=== PATIENT | female | born 1995 ===

== ENCOUNTER 2023-11-14 21:35 | Emergency (ER) | payer SELFPAY ==
--- NOTE | ~2023-11-14 | XR_ITS ---
EXAMINATION: XR CHEST CLINICAL INFORMATION: Cough COMPARISON: None available. TECHNIQUE: 2 views of the chest were obtained. FINDINGS: No significant abnormality is noted involving the heart, lungs, mediastinum, bony thorax or soft tissues. XR/XR chest 2V IMPRESSION: Unremarkable examination.
[2023-11-14 21:37] VITALS: BP 124/80; PULSE 82; RESP 18; TEMP 36.9; O2SAT 100; BMI 22.3
[2023-11-14 21:58] LABS: IDNOW Serial# 08D9AD1C; Strep A Nucleic Acid Negative (Negative)
[2023-11-14 22:27] LABS: Influenza A PCR POSITIVE (Negative); Influenza B PCR NEGATIVE (Negative); Resp Syncy Virus RNA Qual PCR NEGATIVE (Negative); SARS COV2 PCR INHOUSE NEGATIVE (Negative)
--- NOTE | 2023-11-14 23:17 | ED_ITS ---
HPI - General Adult General Chief complaint: Upper Respiratory Symptoms Stated complaint: migraine,vomiting,fever Time Seen by Provider: 11/14/23 23:03 Source: patient Mode of arrival: ambulatory Limitations: no limitations History of Present Illness HPI narrative: 28-year-old female otherwise healthy came in for evaluation of generalized body ache, headache, coughing, sore throat, feeling nauseous, and vomited x1 today, no sick contact, no recent travel. Related Data Allergies Allergy/AdvReac Type Severity Reaction Status Date / Time minocycline [MINOCYCLINE] Allergy Unknown RASH Verified 11/14/23 21:52 Review of Systems Review of Systems: All other systems are reviewed and are negative Constitutional: Reports as per HPI and Reports no additional constitutional complaints Eyes: Reports as per HPI and Reports no additional eye complaints Reports system reviewed and no additional complaints, except as documented Cardiovascular: Reports as per HPI and Reports no additional cardiovascular complaints Respiratory: Reports as per HPI and Reports no additional respiratory complaints Gastrointestinal: Reports as per HPI and Reports no additional gastrointestinal complaints Genitourinary: Reports no additional female genitourinary complaints Musculoskeletal: Reports no additional musculoskeletal complaints Skin/Breast: Reports system reviewed and no additional complaints, except as docu Psychiatric: Reports no additional psychiatric complaints Endocrine: Reports no additional endocrine complaints Hematologic/Lymphatic: Reports no additional hematologic/lymphatic complaints Allergic/Immunologic: Reports no additional allergic/immunologic complaints Reports system reviewed and no additional complaints, except as documented and Reports Abnormal speech present [facility] Social History Social History Advance Directives: No Advance Directives Information Provided: No Physical Exam ED Vital Signs: Vital Signs - 24 hr 11/14/23 21:37 Temperature 98.4 F Pulse Rate 82 Respiratory Rate 18 Blood Pressure 124/80 Pulse Oximetry 100 Oxygen Delivery Method Room Air BMI result Body Mass Index 22.3 Vital signs have been reviewed and appear to be correct. Blood pressure elevated. Heart rate normal. Respiratory rate normal. Temperature normal. Oxygen saturation normal. Appearance: Alert. Oriented X3. No acute distress. Head: Normal external exam. Normocephalic. Atraumatic. No [place] signs noted. No raccoon eyes noted Eyes: PERRLA. EOMI. Conjunctiva and sclera normal. Eyelids normal. ENT: TM's Normal. Pharynx normal. Uvula midline. Moist mucous membranes. No trismus noted. No drooling noted. No muffled voice noted. Neck: Normal inspection. Neck supple. FROM. No adenopathy. Thyroid Normal. No meningeal signs. No neck mass noted. CVS: Normal heart rate and rhythm. Heart sound normal. No murmurs noted. Pulses normal throughout. Respiratory: No respiratory distress. Painless inspiration. Breath sounds normal. No wheezes/rales/rhonchi noted. Chest nontender. No accessory muscle usage noted or decreased air movement noted. Abdomen: Soft and nontender. Bowel sounds normal in all 4 quadrants. No distention noted. No organomegaly noted. No visible injury noted. Back: No CVA tenderness. Full range of motion noted. Skin: Skin warm and dry. Normal skin color. Normal skin turgor. No rashes/lesions/lacerations noted. Extremities: No lower extremity edema. Extremities exhibit normal range of motion. Extremities nontender. Neuro: Oriented X 3. Cranial nerve exam: II-XII are grossly intact No motor deficit. No sensory deficit. Reflexes normal. Course Reevaluation(s) Reevaluation #1: Symptoms related to influenza a infection, was instructed to drink plenty of fluids, stay home, keep social distancing, face mask, frequent and wash. And use Tylenol/ibuprofen if needed for fever. Time: 23:19 Medical Decision Making Differential Diagnosis Differential Diagnoses: The differential diagnosis associated with the presentation includes (Influenza a, COVID-19 infection, RSV, strep pharyngitis.) Admission/Observation Consideration of admission/observation: Escalation of care including admission/observation considered Lab Data MDM Lab Attestation statement: I reviewed the patient's lab results. Labs: Lab Results 11/14/23 Range/Units 21:45 Influenza Type A (PCR) POSITIVE A (Negative) Influenza Type B (PCR) NEGATIVE (Negative) RSV RNA Qual (PCR) NEGATIVE (Negative) SARS-CoV-2 RNA (RT-PCR) NEGATIVE (Negative) S. pyogenes GrpA MAYURI Negative (Negative) Discharge Plan Discharge Clinical Impression: Influenza Patient Disposition: Home, Self-Care Instructions: Influenza (ED) Additional Instructions: Drink plenty of fluids, frequent handwashing, use face mask, keep social distance, home quarantine for 1 week.
[2023-11-14 23:46] VITALS: BP 129/76; PULSE 80; RESP 18; TEMP 37.5; O2SAT 100
--- NOTE | 2023-11-14 23:47 | PC.NURSE ---
pt calm and cooperative. pt ambulatory at discharge. pt provided with discharge packet. pt verbalized understanding of discharge plan.
== END 2023-11-14 23:49 | disposition home or self-care (01) ==
PROVIDERS: Emergency Provider Emergency Medicine
DX: J11.1 Influenza due to unidentified influenza virus with other respiratory manifestations (principal); Z20.822 Contact with and (suspected) exposure to COVID-19; Z20.828 Contact with and (suspected) exposure to other viral communicable diseases
CPT/HCPCS: 0241U; 71046; 87651; 99283; 99284

== ENCOUNTER 2023-12-06 08:40 | Emergency (ER) | payer MEDICAID, SELFPAY ==
--- NOTE | ~2023-12-06 | US_ITS ---
EXAMINATION: US OBSTETRICAL ULTRASOUND CLINICAL INFORMATION: , bleeding, abdominal pain COMPARISON: None available. LMP: 01/01/2023. Gestational age by maternal dates is 5 weeks 1 day. Estimated date of delivery by maternal dates is 08/06/2024. TECHNIQUE: Transabdominal and transvaginal imaging was performed. FINDINGS: There is a single intrauterine gestational sac with visible yolk sac, embryo/fetus, and cardiac activity. There is no significant subchorionic hemorrhage or hematoma. HR: 106 beats per minute. CRL (crown rump length): 0.24 cm (5 weeks 6 days +/- 4 days). DAVID (estimated date of delivery): 08/01/2024 +/- 4 days. MATERNAL ADNEXA: The right maternal ovary measures 3.6 x 3.1 x 2.5 cm. 2.1 x 1.9 x 2.1 cm corpus luteum is seen in the right ovary. The left maternal ovary measures 2.1 x 0.9 x 1.6 cm. The left ovary is normal in appearance. There is no significant maternal adnexal mass. No maternal pelvic ascites. US/US OB <= 14 weeks fetus IMPRESSION: 1. Single intrauterine gestation with ultrasound gestational age of 5 weeks 6 days +/- 4 days. 2. Estimated date of delivery is 08/01/2024 +/- 4 days. 3. The heart rate is slightly slow. Follow-up ultrasound in 7-10 days could be performed.
[2023-12-06 08:51] VITALS: BP 147/90; PULSE 120; RESP 20; TEMP 36.7; O2SAT 100; BMI 19.8
[2023-12-06 09:32] LABS: Appearance Urine Cloudy; Color Urine Dark Yellow; Glucose Urine UA Negative (Negative); Leukocyte Esterase Urine Trace (Negative); Nitrite Urine Negative (Negative); Specific Gravity - Urine >= 1.030 (1.005-1.025); UMIC TRIGGER UACC YES; UPreg QC Valid YES; Urine Blood Trace (Negative); Urine Ketones 40 mg/dL (Negative); Urine Pregnancy POSITIVE (NEGATIVE); Urine Protein Trace mg/dL (Neg-Trace)
[2023-12-06 09:38] LABS: Bacteria Urine 4+ (None Seen); Hyaline Casts Urine 0-2 /LPF (0-2); Squamous Epithelial Cell Urine >20 /HPF (0-2); WBC Urine 0-5 /HPF (0-5)
[2023-12-06 10:07] LABS: MANUAL DIFF FLAG NO
[2023-12-06 10:08] LABS: Basophils Percent Auto 0.4 % (0-2); Eosinophils Percent Auto 0.3 % (0-4); Hematocrit 36.1 % (37.0-47.0); Hemoglobin 12.2 g/dl (12.0-16.0); Imm Gran Abs Auto 0.03 X10*3/uL (0.00-0.03); Imm Gran Pct Auto 0.4 % (0.0-0.4); Lymphocytes Absolute Auto 1.4 X10*3/uL (1.2-4.9); Lymphocytes Percent Auto 18.1 % (20-40); Mean Corpuscular HGB Conc 33.8 g/dl (31.0-35.0); Mean Corpuscular Hemoglobin 30.7 pg (27.0-33.0); Mean Corpuscular Volume 90.9 fL (80.0-98.0); Mean Platelet Volume 11.3 fL (9.4-12.3); Monocytes Absolute Auto 0.5 X10*3/uL (0.1-1.2); Monocytes Percent Auto 6.4 % (2-11); Neutrophils Absolute Auto 5.8 x10*3/uL (2.0-8.3); Neutrophils Percent Auto 74.4 % (45-73); Platelet Count 216 X10*3/uL (160-400); Red Blood Count 3.97 X10*6/uL (4.20-5.50); Red Cell Distribution Width 11.7 % (11.0-16.0); White Blood Count 7.8 X10*3/uL (4.8-10.8)
--- NOTE | 2023-12-06 10:14 | ED.GENADULT ---
HPI - General Adult General Chief complaint: General Medical Stated complaint: abd pain Time Seen by Provider: 12/06/23 10:14 Source: patient and academic records specialist Mode of arrival: ambulatory Limitations: language barrier History of Present Illness HPI narrative: Patient is a 28 year old assigned female at with no reported medical history presenting to the emergency department today with lower abdominal pain, scant vaginal bleeding, and concern for . Patient states that her last period was in October of 2023 and she is late for her current period. Patient states that she had one episode of lower abdominal pain and some scant vaginal bleeding. Patient denies ever being . Patient denies any dizziness, lightheadedness, nausea, vomiting, fever, chills, blurry vision, double vision, loss of vision, chest pain, difficulty breathing, shortness of breath, back pain, night sweats, pain with urination, increased urinary frequency, increased urinary urgency, blood in her stool, syncope or a near syncopal episode, recent trauma or falls, bowel incontinence, bladder incontinence, bowel retention, bladder retention, or any other complaints at this time. Onset (ago): day(s) Severity: mild Relieving factors: none Exacerbating factors: none Associated symptoms: denies other symptoms Treatments prior to arrival: none Related Data Previous Rx's Medication Instructions Recorded cefuroxime axetil 250 mg tablet 250 mg PO BID 7 days #14 tabs 12/06/23 Allergies Allergy/AdvReac Type Severity Reaction Status Date / Time minocycline [MINOCYCLINE] Allergy Unknown RASH Verified 12/06/23 08:59 Review of Systems Constitutional: Constitutional: Reports no additional constitutional complaints, Denies chills, Denies fever(s) and Denies night sweats Eyes: Eyes: Reports no additional eye complaints, Denies blurry vision, Denies change in vision, Denies diplopia, Denies eye discharge, Denies loss of vision and Denies eye pain ENT: Denies dizziness Cardiovascular: Cardiovascular: Reports no additional cardiovascular complaints, Denies chest pain, Denies lightheadedness, Denies Loss of Consciousness and Denies dyspnea Respiratory: Respiratory: Reports no additional respiratory complaints and Denies dyspnea Gastrointestinal: Gastrointestinal: Reports no additional gastrointestinal complaints, Reports abdominal pain, Denies melena, Denies hematochezia, Denies change in bowel habits and Denies change in stool character Genitourinary: Genitourinary: Denies hematuria, Denies urinary frequency, Denies dysuria, Denies urinary incontinence, Denies urinary hesitancy and Denies urinary urgency Comments: vaginal bleeding Musculoskeletal: Musculoskeletal: Reports no additional musculoskeletal complaints, Denies numbness and Denies tingling Neurologic: Denies dizziness, Denies loss of vision, Denies numbness and Denies tingling Psychiatric: Psychiatric: Reports no additional psychiatric complaints Endocrine: Endocrine: Reports no additional endocrine complaints Hematologic/Lymphatic: Hematologic/Lymphatic: Reports no additional hematologic/lymphatic complaints Allergic/Immunologic: Allergic/Immunologic: Reports no additional allergic/immunologic complaints [facility] Past Medical History Attestation statement: The following information was validated with the patient. Source: old records reviewed and nursing notes reviewed Onset Date is defined in the Problem List Problems that require an onset date and time if occurred within 24 hrs of arrival to the ED Aortic Dissection and Rupture; Neurologic impairment; Cardiopulmonary Arrest; Endotracheal Intubation; Insertion or Replacement of Mechanical Circulatory Assist Device Social History Social History Advance Directives: No Advance Directives Information Provided: No Physical Exam ED Vital Signs: Vital Signs - 24 hr 12/06/23 08:51 Temperature 98.1 F Pulse Rate 120 H Respiratory Rate 20 Blood Pressure 147/90 H Pulse Oximetry 100 Oxygen Delivery Method Room Air BMI result Body Mass Index 19.8 Const General: cooperative, no acute distress, alert and awake Nutritional Appearance: well nourished Orientation/consciousness: patient oriented x3 Limitations: no limitations HENMT Head: Yes normal to inspection and Yes atraumatic Ears: hearing grossly normal bilaterally and external ears normal General nose exam: Normal external nose present, no nasal discharge noted and no epistaxis Face and sinus: Yes normal facial exam, No abrasion and No laceration Mouth: Normal oral and palatal mucosa present, no drooling and no muffled voice Eyes General: appearance normal, both eyes and all related structures Periorbital: periorbital findings normal Eyelids: Yes eyelids normal Conjunctivae: conjunctivae normal Pupils: Equal, round and reactive pupils present EOM: EOMs intact bilaterally Neck Neck: Yes normal visual inspection, Yes full ROM and Yes no lymphadenopathy Chest Chest palpation & inspection: normal inspection of the chest Resp Effort & Inspection: normal respiratory effort and able to speak in complete sentences GI Inspection: Yes normal to inspection Palpation (GI): Soft to palpation, not firm, nontender, no guarding and not rigid Neuro General: patient oriented x3 and moves all extremities Cranial nerves: Yes Equal, round and reactive pupils present Cognition (Neuro): normal cognition Motor exam (neuro): 5/5 motor strength present throughout Sensory Exam: Normal double simultaneous stimulation for sensation Coordination: [id number] test normal Extrem General: Yes normal to inspection, Yes full ROM and Yes capillary refill normal Psych Appearance: grossly normal Mental Status: mental status grossly normal Affect: normal affect Attitude: cooperative Thought process: Normal thought process present Thought content: Normal thought content present Insight: Good insight present (Psych) Medical Decision Making Medical Decision Making MDM Narrative: Patient is a 28 year old assigned female at with no reported medical history presenting to the emergency department today with concern of , resolved abdominal pain, and scant vaginal bleeding. Patient's physical exam was unremarkable. [place] [address]. Patient's urine showed a possible urinary tract infection, given the patient's status, will treat. Patient's US showed an intrauterine with a slightly slow heart rate . I explained my physical exam findings as well as all test results to the patient. I answered all questions asked by the patient. I stressed the importance of the patient taking her medication as prescribed. I stressed the importance of the patient following up with her primary care provider and an OBGYN. I stressed the importance of the patient returning to the emergency department immediately if her symptoms were to worsen or if she were to develop any dizziness, shortness of breath, difficulty breathing, chest pain, blurry vision, loss of vision, nausea, vomiting, abdominal pain, fever, chills, back pain, or any other complaints. Patient verbalized agreement and understanding with this treatment plan and discharge. Differential Diagnosis Differential Diagnoses: The differential diagnosis associated with the presentation includes UTI Admission/Observation Consideration of admission/observation: Escalation of care including admission/observation considered Patient would have been admitted to the hospital had her work up had any findings where hospital admission was appropriate and her clinical presentation warranted hospital admission. Lab Data [facility] Lab Attestation statement: I reviewed the patient's lab results. My interpretation of these results are in the [facility] Rationale portion of this note. 12/06/23 10:00 12/06/23 10:00 Labs: Lab Results 01/12/06/23 12/06/23 Range/Units 09:04 10:00 11:18 WBC 7.8 (4.8-10.8) X10*3/uL RBC 3.97 L (4.20-5.50) X10*6/uL Hgb 12.2 (12.0-16.0) g/dl Hct 36.1 L (37.0-47.0) % MCV 90.9 (80.0-98.0) fL MCH 30.7 (27.0-33.0) pg MCHC 33.8 (31.0-35.0) g/dl RDW 11.7 (11.0-16.0) % Plt Count 216 (160-400) X10*3/uL MPV 11.3 (9.4-12.3) fL Immature Gran % (Auto) 0.4 (0.0-0.4) % Neut % (Auto) 74.4 H (45-73) % Lymph % (Auto) 18.1 L (20-40) % Starke % (Auto) 6.4 (2-11) % Eos % (Auto) 0.3 (0-4) % Baso % (Auto) 0.4 (0-2) % Lymph # (Auto) 1.4 (1.2-4.9) X10*3/uL Starke # (Auto) 0.5 (0.1-1.2) X10*3/uL Eos # (Auto) 0.0 (0.0-0.4) X10*3/uL Baso # (Auto) 0.0 (0.0-0.2) X10*3/uL Abs Immat Gran (auto) 0.03 (0.00-0.03) X10*3/uL Absolute Neuts (auto) 5.8 (2.0-8.3) x10*3/uL Absolute Nucleated RBC 0.000 (0.0-0.012) X10*3/uL Nucleated RBC % (auto) 0.0 (0.0-0.2) /100WBC Sodium 137 (135-145) mmol/L Potassium 4.2 (3.3-5.1) mmol/L Chloride 106 (96-108) mmol/L Carbon Dioxide 23 (22-29) mmol/L Anion Gap 12 (12-20) BUN 8 L (9-16) mg/dL Creatinine 0.64 (0.5-1.4) mg/dL Estim Creat Clear Calc 123.9 Estimated GFR > 60 Random Glucose 86 (60-115) mg/dL Calcium 9.4 (8.4-10.2) mg/dL Magnesium 1.8 (1.6-2.6) mg/dL Total Bilirubin 1.0 (0.0-1.0) mg/dL AST 22 (5-31) U/L ALT 34 H (0-31) U/L Alkaline Phosphatase 79 (39-117) U/L Total Protein 7.4 (6.5-8.0) g/dL Albumin 4.3 (3.5-5.0) g/dL Beta HCG, Quant 95618 mIU/mL Urine Color Dark Yellow Urine Appearance Cloudy Urine pH 7.0 (5.0-9.0) Ur Specific [place] >= 1.030 H (1.005-1.025) Urine Protein Trace (Neg-Trace) mg/dL Urine Glucose (UA) Negative (Negative) mg/dL Urine Ketones 40 (Negative) mg/dL Urine Blood Trace H (Negative) Urine Nitrite Negative (Negative) Ur Leukocyte Esterase Trace H (Negative) Urine RBC 11-20 H (0-2) /HPF Urine WBC 0-5 (0-5) /HPF Ur Squamous Epith Cells >20 (0-2) /HPF Urine Bacteria 4+ (None Seen) Hyaline Casts 0-2 (0-2) /LPF Urine Test POSITIVE H (NEGATIVE) Blood Type A Positive Antibody Screen NEGATIVE Independent Interpretation I performed an independent interpretation of an: Ultrasound Interpretation: My interpretation is in agreement with the radiologist's impression of this imaging study. EXAMINATION: US OBSTETRICAL ULTRASOUND CLINICAL INFORMATION: , bleeding, abdominal pain COMPARISON: None available. LMP: 01/01/2023. Gestational age by maternal dates is 5 weeks 1 day. Estimated date of delivery by maternal dates is 08/06/2024. TECHNIQUE: Transabdominal and transvaginal imaging was performed. FINDINGS: There is a single intrauterine gestational sac with visible yolk sac, embryo/fetus, and cardiac activity. There is no significant subchorionic hemorrhage or hematoma. HR: 106 beats per minute. CRL (crown rump length): 0.24 cm (5 weeks 6 days +/- 4 days). DAVID (estimated date of delivery): 08/01/2024 +/- 4 days. MATERNAL ADNEXA: The right maternal ovary measures 3.6 x 3.1 x 2.5 cm. 2.1 x 1.9 x 2.1 cm corpus luteum is seen in the right ovary. The left maternal ovary measures 2.1 x 0.9 x 1.6 cm. The left ovary is normal in appearance. There is no significant maternal adnexal mass. No maternal pelvic ascites. US/US OB <= 14 weeks fetus IMPRESSION: 1. Single intrauterine gestation with ultrasound gestational age of 5 weeks 6 days +/- 4 days. 2. Estimated date of delivery is 08/01/2024 +/- 4 days. 3. The heart rate is slightly slow. Follow-up ultrasound in 7-10 days could be performed. Dictated By: Yarelis Borden MD Signed By: Electronically signed by Yarelis Borden MD 12/06/23 4950 Radiology Impression Discussion of test interpretation with radiology: I have reviewed the radiologist's reading. Prescription Management I considered prescription management with: Antibiotic (patient prescribed an antibiotic for UTI) Discharge Plan Discharge Clinical Impression: , Urinary tract infection Patient Disposition: Home, Self-Care Instructions: (ED), Urinary Tract Infection in (ED) Additional Instructions: Follow up with your primary care provider and an OBGYN. The fetus' heart beat was considered slow - this means you need it rechecked soon. Return to the emergency department immediately if your symptoms worsen or if you develop any dizziness, shortness of breath, difficulty breathing, chest pain, blurry vision, loss of vision, nausea, vomiting, abdominal pain, fever, chills, back pain, or any other complaints. Amanda un seguimiento con lao proveedor de atenci?n primaria y un obstetra. El latido del coraz?n del feto se consider? lento , lo que significa que es necesario volver a comprobarlo pronto. Regrese al departamento de emergencias inmediatamente si viral s?ntomas empeoran o si presenta mareos, dificultad para respirar, dificultad para respirar, dolor en el pecho, visi?n borrosa, p?rdida de la visi?n, n?useas, v?mitos, dolor abdominal, fiebre, escalofr?os, dolor de espalda o cualquier otras quejas. Prescriptions: New cefuroxime axetil 250 mg tablet 250 mg PO BID 7 Days Qty: 14 0RF Referrals: [facility] [place]] (Call to establish and follow up with a primary care provider. If you already have a primary care provider, please follow up with them. Llame para establecer y realizar un seguimiento con un proveedor de atenci?n primaria. Si ya tiene un proveedor de atenci?n primaria, amanda un seguimiento con ?l.) [facility] [[place] Group] (Call to establish and follow up with a primary care provider. If you already have a primary care provider, please follow up with them. Llame para establecer y realizar un seguimiento con un proveedor de atenci?n primaria. Si ya tiene un proveedor de atenci?n primaria, amanda un seguimiento con ?l.) [facility] [Provider Group] (Call to establish and follow up with a primary care provider. If you already have a primary care provider, please follow up with them. Llame para establecer y realizar un seguimiento con un proveedor de atenci?n primaria. Si ya tiene un proveedor de atenci?n primaria, amanda un seguimiento con ?l.) Abad Sanchez MD [Physician] - (Call to establish and follow up with an OBGYN. Llame para establecer y realizar un seguimiento con un obstetra y ginec?logo.) Interventions: ED Discharge Assessment Last Done: 12/06/23 12:41 Discharge Date/Time: 12/06/23 12:41 Print Language: Nigerian
[2023-12-06 10:29] LABS: Alanine Aminotransferase 34 U/L (0-31); Albumin Level 4.3 g/dL (3.5-5.0); Alkaline Phosphatase 79 U/L (39-117); Anion Gap 12 (12-20); Aspartate Amino Transferase 22 U/L (5-31); Blood Urea Nitrogen 8 mg/dL (9-16); Calcium 9.4 mg/dL (8.4-10.2); Carbon Dioxide 23 mmol/L (22-29); Chloride 106 mmol/L (96-108); Creatinine Clr Calc Pharmacy 123.9; Estimated Glomerular Filt Rate > 60; Glucose Random 86 mg/dL (60-115); Magnesium 1.8 mg/dL (1.6-2.6); Potassium 4.2 mmol/L (3.3-5.1); Sodium 137 mmol/L (135-145); Total Protein 7.4 g/dL (6.5-8.0)
== END 2023-12-06 12:41 | disposition home or self-care (01) ==
PROVIDERS: Physician Assistant Medical; Emergency Provider Emergency Medicine
DX: O23.41 Unspecified infection of urinary tract in pregnancy, first trimester (principal); R10.30 Lower abdominal pain, unspecified; N39.0 Urinary tract infection, site not specified; Z3A.01 Less than 8 weeks gestation of pregnancy
CPT/HCPCS: 36415; 76801; 80053; 81001; 81025; 83735; 84702; 85025; 86850; 86900; 86901; 99282; 99284

== ENCOUNTER 2023-12-14 13:25 | Outpatient (REF) | payer OTHER, SELFPAY ==
--- NOTE | ~2023-12-14 | US_ITS ---
EXAMINATION: US OBSTETRICAL ULTRASOUND CLINICAL INFORMATION: Follow-up . COMPARISON: Obstetrical ultrasound dated 12/06/2023. LMP: 10/31/2023. Gestational age by maternal dates is 6 weeks and 2 days. Estimated date of delivery by maternal dates is 08/06/2024. TECHNIQUE: Ultrasound of the maternal pelvis is performed using transabdominal transducer. M-mode Doppler is also performed. FINDINGS: There is a single intrauterine gestational sac with visible yolk sac, embryo/fetus, and cardiac activity. There is no significant subchorionic hemorrhage or hematoma. HR: 144 beats per minute. CRL (crown rump length): 0.91 cm (7 weeks and 0 days +/- 4 days). DAVID (estimated date of delivery): 08/01/2024 +/- 4 days. MATERNAL ADNEXA: The right maternal ovary measures 3.3 x 2.5 x 2.0 cm. The right ovary contains a 1.7 cm benign, simple physiologic follicle. The left maternal ovary measures 2.0 x 1.3 x 2.2 cm. There is no significant maternal adnexal mass. No maternal pelvic ascites. US/US OB <= 14 weeks fetus IMPRESSION: 1. Single intrauterine gestation with ultrasound gestational age of 7 weeks and 0 days +/- 4 days. 2. Estimated date of delivery is 08/01/2024 +/- 4 days. This is the same estimated date of delivery as was obtained from obstetrical ultrasound measurements of 12/06/2023. 3. The heart rate is normal. 4. No maternal adnexal mass or pelvic ascites.
== END 2023-12-14 13:26 | disposition home or self-care (01) ==
LOC: HO.US 13:25
PROVIDERS: Visit Provider Advanced Practice Midwife
DX: O36.8310 Maternal care for abnormalities of the fetal heart rate or rhythm, first trimester, not applicable or unspecified (principal); Z3A.01 Less than 8 weeks gestation of pregnancy
CPT/HCPCS: 76801

== ENCOUNTER 2023-12-22 10:09 | Outpatient (AMB) | payer OTHER, SELFPAY ==
--- NOTE | 2023-12-22 10:09 | A.OFFVIS_ITS ---
Intake Vital Signs 12/22/23 10:11 Height 5 ft 4 in Weight 142 lb BMI 24.4 BP 110/72 Intake Visit Reasons: US follow up per Francisco J Chemist Inorganic Required: Yes Chemist Inorganic Language: Corporate Bond Trader Name: Vannessa Information Interpreted: non-clinical & clinical Destination Sign Repairer: Destination Sign Repairer Present Accompanied by: Mother Allergies minocycline [MINOCYCLINE] Allergy (Unknown, Verified 12/22/23 10:10) RASH Is last menstrual period known: Yes HPI HPI Comments History of Present Illness Details Patient is here today with her mother for a follow-up ultrasound after being seen in the ED. she is a EDC 08/01 24 based on ultrasound at 7 weeks. Currently now 8.3 weeks' gestation. She reports taking the vitamins. Has a good appetite and is hydrating well. She reports a bitter taste but no nausea or vomiting. She denies any vaginal bleeding pelvic pain or urinary symptoms. She denies any past medical history. Past surgical history is adenoidectomy and ear tubes. Allergy to minocycline rash, possible hives. [facility] Social History Alcohol intake: never Patient Tobacco Use Status: Never used Tobacco Sexual orientation: Straight/Heterosexual Gender identity: Female Female Reproductive History Menstrual Total pregnancies: 1 Review of Systems Const All systems reviewed & are unremarkable except as noted in HPI and below Endo Reports no additional complaints Physical Exam Vital Signs: Last Vital Signs BP 110/72 12/22/23 10:11 BMI result Body Mass Index 24.4 Const General: cooperative, healthy appearing and no acute distress Psych Appearance: well kempt Attitude: cooperative Thought process: Normal thought process present Assessment & Plan Assessment & Plan (1) Early stage of : Code(s): Z34.90 - Encounter for supervision of normal , unspecified, unspecified trimester (2) Encounter to discuss test results: Code(s): Z71.2 - Person consulting for explanation of examination or test findings Plan Discussed: Ultrasound early with + heart rate. care options including [facility], Laurita Kan, Laura, [address] [place] [address]. Anticipatory guidance for care: discussed diet. Continue with vitamins. Patient prefers to stay here for care at this time is aware if her becomes high risk she would be transferred, and can consider transfer to meet the providers at [facility] any time she would like, preferably sooner to meet the clinicians. All of her questions and concerns were addressed to the best of my ability and shared decision making. She is agreeable to the plan of care. Reviewed the warnings in early of when to call for any concerns. Coding Level of Care Code New Pt Level 3 (90700) Diagnoses Early stage of Z34.90 Encounter to discuss test results Z71.2
[2023-12-22 10:11] VITALS: BP 110/72; BMI 24.4
== END 2023-12-22 11:20 | disposition home or self-care (01) ==
LOC: HO.HWS 10:09
PROVIDERS: Visit Provider Advanced Practice Midwife
DX: Z34.90 Encounter for supervision of normal pregnancy, unspecified, unspecified trimester (principal); Z71.2 Person consulting for explanation of examination or test findings
CPT/HCPCS: 99203

== ENCOUNTER → 2023-12-22 10:09 | Outpatient (BNVA) | payer OTHER, SELFPAY | PROVIDERS: Visit Provider Advanced Practice Midwife | DX: Z34.91 Encounter for supervision of normal pregnancy, unspecified, first trimester (principal) | CPT/HCPCS: 99202 ==

== ENCOUNTER 2024-01-05 09:44 | Outpatient (AMB) | payer OTHER, SELFPAY ==
--- NOTE | 2024-01-05 10:07 | A.OFFVISPN_ITS ---
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 Father No problems noted. Maternal Grandmother No problems noted. 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 Sexual orientation: Straight/Heterosexual Gender identity: Female Cognitive needs: No Hearing needs: No Vision needs: No Female Reproductive History Menstrual Age of Menarche: 13 Duration of menses: 3-5 days control method: none Total pregnancies: 1 Full term: 0 Premature: 0 Number of Living Children: 0 Ab spontaneous: 0 Ectopics: 0 Multiple births: 0 History of abnormal pap smear: No History of STI: No History History 1 Elective abortions 0 Para 0 Spontaneous abortions 0 Hx # Term Pregnancies 0 Ectopic pregnancies 0 Hx # Pregnancies 0 Multiple births 0 Education First Trimester Education Checklist Plans/Education - by Trimester Counseled: Yes HIV and other routine tests: discussed Infectious disease exposure: chicken pox immunity discussed, hepatitis risk discussed and tuberculosis exposure discussed Influenza vaccine: discussed Nutrition and weight gain counseling: special diet: discussed Sexual activity: discussed Exercise: discussed Tobacco use: No Alcohol use: No Substance use: No Environmental/home/work hazards: discussed Domestic violence: discussed Travel: discussed Seatbelt use: discussed Toxoplasmosis precautions (cats/raw meat): discussed Childbirth education/discussion: symptoms education/discussion and group B strep education/discussion danger signs: Yes education packet: symptoms, vitamins and iron, diet and weight gain, fish and mercury intake, listeriosis prevention, caffeine use, exercise and activity, work issues, sexual activity, x-ray exposure, medication use, toxoplasmosis precautions, sauna/hot tub use and dental care Mental health: discussed Anticipated course of care: discussed Indications for ultrasound: discussed Health center information: visit schedule reviewed, coverage 24 hours a day and signs of miscarriage reviewed Questionnaire History History : 1 Visit DAVID Calculator Estimated Delivery Date Method Current WG Current Estimate 08/01/24 Ultrasound #1 10w 1d Other Estimates 08/06/24 LMP (Uncertain) 9w 3d Expected Delivery Route/Plan OB Visit Log Initial Weight: 133 lb Date -?-?-?-?-?-?-?-?-?-?-?-?- EGA Weight Gest Week Fundal Ht Present FHR move Efface % Edema BP PrePreg We Weight GTT -?-?-?-?-?-?-?-?-?-?-?-?- Glucose LV Protein Blood Type 01/05/24 -?-?-?-?-?-?-?-?-?-?-?-?- 10w 1d 143 lb (+10 lb) 143 l b -?-?-?-?-?-?-?-?-?-?-?-?- Notes Visit Date: 01/05/24 Last Updated by: Olga Lockett 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 She had US 12/14/23 at 7w0d and DAVID of 08/01/24 and GA today of 10w1d. Pt is feeling well and taking PNVs. She was given the folder and is scheduled for OB PE 01/13/24. Kaela has no medical problems and no family history of concern. FOB is Phong and both parents are involved and she has good support from her partner and family. We discussed danger signs, 14/06 MD coverage and how to reach MD after hours. She is aware her delivery and ultras[place] take place [place] [facility]. She and her partner are excited about this and have been trying to conceive for awhile. We reviewed first trimester education and all of her questions were answered to the best of my ability. No further questions at this time. labs and NT US have been ordered. Will call pt with NT US date and time to be done at [facility]. Initial Infection History & Risk Profile History of STDs: No HIV risk evaluation: low risk Hepatitis B risk evaluation: low risk Patient or partner has history of Genital Herpes: No Varicella/chicken pox status: unknown Genetic Screening & Global Compensation Director Genetic Screening/Teratology Counseling - Includes patient, baby's father, or anyone in either family with: 1. Patient's age 35 years or older as of estimated date of delivery: No 2. Thalassemia (Spanish, Faroese, Mediterranean, or Background); MCV less than 80: No 3. Neural Tube Defect (Meningomyelocele, Spina Bifida, or Anencephaly): No 4. Congenital Heart Defect: No 5. Down Syndrome: No 6. Pedro-Sachs (Ashkenazi Gnosticist, Cajun, Urdu Maldivian): No 7. Claudia Disease (Ashkenazi Gnosticist): No 8. Familial Dysautonomia (Ashkenazi Gnosticist): No 9. Sickle Cell Disease or Trait (): No 10. Hemophilia or other blood disorders: No 11. Muscular Dystrophy: No 12. Cystic Fibrosis: No 13. Winchester's Chorea: No 14. Intellectual disability/Autism: Yes 15. Other inherited genetic or chromosomal disorder: No 16. Maternal Metabolic Disorder (EG,TYPE 1 Diabetes, PKU): No 17. Patient or baby's father had a child with defects not listed above: No 18. Recurrent loss or a stillbirth: No 19. Medications (including supplements, vitamins, herbs or otc drugs)/illicit/recreational drugs/alcohol since last menstrual period: No 20. Any other: No Infection History 1. Live with someone with TB or exposed to TB: No 2. Rash or viral illness since last menstrual period: No 3. Hepatitis B,C: No Other (see comments) Source: [employer] Coding Level of Care Code Established Pt Melvi Patient Type Established History Problem Focused Medical Decision Making Moderate Complexity Diagnoses Early stage of Z34.90 Time Spent (min) 70 Assessment & Plan Assessment & Plan (1) Early stage of : Code(s): Z34.90 - Encounter for supervision of normal , unspecified, unspecified trimester Category: Medical Plan: Pt is scheduled for OB PE 01/13/24 and she was advised to go to [facility] for labs. Orders: Orders Hepatitis C Antibody Today Z32. - Encounter for test, result positive Urine Culture Today Z32. - Encounter for test, result positive Rubella IgG Antibody Today Z32. - Encounter for test, result positive CF Carrier Screen Today Z32. - Encounter for test, result positive US OB 1T nuc measure Today Z32. - Encounter for test, result positive Complete Blood Count no Diff Today Z32. - Encounter for test, result positive Syphilis Screen Today Z32. - Encounter for test, result positive Hepatitis B Surface Antigen Today Z32.01 - Encounter for test, result positive Varicella IgG Antibody Today Z32.01 - Encounter for test, result positive HIV Ab/Ag Today Z32.01 - Encounter for test, result positive Drug Screen Urine Today Z32.01 - Encounter for test, result positive Screen Today Z32.01 - Encounter for test, result positive
[2024-01-05 10:40] VITALS: BMI 24.5
== END 2024-01-05 11:15 | disposition home or self-care (01) ==
LOC: HO.HWS 09:44
PROVIDERS: Visit Provider Advanced Practice Midwife
DX: Z34.90 Encounter for supervision of normal pregnancy, unspecified, unspecified trimester (principal)
CPT/HCPCS: 25942

== ENCOUNTER → 2024-01-05 09:44 | Outpatient (BNVA) | payer OTHER, SELFPAY | PROVIDERS: Visit Provider Advanced Practice Midwife | DX: Z34.01 Encounter for supervision of normal first pregnancy, first trimester (principal); Z3A.10 10 weeks gestation of pregnancy | CPT/HCPCS: 99212 ==

== ENCOUNTER 2024-01-13 09:35 | Outpatient (AMB) | payer OTHER, SELFPAY ==
[2024-01-13 09:55] VITALS: BP 110/70; BMI 25.6
--- NOTE | 2024-01-13 09:55 | A.OFFVISPN_ITS ---
Intake Vital Signs 01/13/24 09:55 Height 5 ft 4 in Weight 149 lb BMI 25.6 BP 110/70 Intake Visit Reasons: OB PE Intake Note: EPDS 3 Community Health Nursing Director Required: Yes Community Health Nursing Director Language: Certified Welder Name: Vannessa Information Interpreted: non-clinical & clinical Operation Specialist: Operation Specialist Present (Vannessa) Allergies minocycline [MINOCYCLINE] Allergy (Unknown, Verified 01/13/24 09:55) RASH [facility] Medical History (Updated 01/13/24 @ 10:[address] CNM) Encounter for supervision of normal first Surgical History (Updated 12/22/23 @ 11:46 by JESSICA Ferrara) History of placement of ear tubes Hx of adenoidectomy Family History (Updated 01/05/24 @ 10:19 by Olga Lockett) Mother No problems noted. Father No problems noted. Maternal Grandmother No problems noted. 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 Sexual orientation: Straight/Heterosexual Gender identity: Female Cognitive needs: No Hearing needs: No Vision needs: No Female Reproductive History Menstrual Age of Menarche: 13 Total pregnancies: 1 History History 1 Elective abortions 0 Para 0 Spontaneous abortions 0 Hx # Term Pregnancies 0 Ectopic pregnancies 0 Hx # Pregnancies 0 Multiple births 0 Questionnaire History History : 1 Sandwich Depression Sandwich Depression Scale I have been able to laugh and see the funny side of things: As much as I always could I have looked forward with enjoyment to things: As much as I ever did I have blamed myself unnecessarily when things went wrong: Yes, some of the time I have been anxious or worried for no reason: No, not at all I have felt scared of panicky for no very good reason at all: No, not at all Things have been getting on top of me: No, I have been coping as well as ever I have been so unhappy that I have had difficulty sleeping: Not very often I have felt sad or miserable: No, not at all I have been so unhappy that I have been crying: No, never The thought of harming myself has occurred to me: Never 3 Visit DAVID Calculator Estimated Delivery Date Method Current WG Current Estimate 08/01/24 Ultrasound #1 11w 2d Other Estimates 08/06/24 LMP (Uncertain) 10w 4d Expected Delivery Route/Plan Specific Issues/Plans 28 Yr. old EDC: by Blood type: Problem List: 1. Testing: Panorama: 01/13/24 risk, does want not want to know the gender when results come back NT scan: booked 01/20/24 AFP: FAS: Glucose: early 28 wk glucose: CBC 1st Tri: 28 wk. CBC: GBS: Vaccinations: Flu: no Covid: x2 Tdap: RSV: [id number]: Education/Services WIC: enrolled CBE: advised/information provided Breast feeding classes: informed Social Supports/stressors: declines Living situation: alone, apt. 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 11wk. Presents with her mom today. Taking PNV, Doing well with no concerns. Good appetite, stays well hydrated. Denies any LOF, VB, abd. pain or urinary symptoms. Patient was unaware her labs were completed, she is agreeable to have them completed today. EPDS=3. OBPE today, pap, cultures. Reviewed: VB, when to seek emergent care. Encouraged a healthy well balanced diet, regular walking/exercise in . Hydrate well, 8-10 glasses of water daily. And labs today including panorama. RTO 4wks. Visit Date: 01/05/24 Last Updated by: Olga Witt Levy Sherwood is here for nursing education consultant. 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 She had US 12/14/23 at 7w0d and DAVID of 08/01/24 and GA today of 10w1d. Pt is feeling well and taking PNVs. She was given the folder and is scheduled for OB PE 01/13/24. Kaela has no medical problems and no family history of concern. FOB is Phong and both parents are involved and she has good support from her partner and family. We discussed danger signs, 24/7 MD coverage and how to reach MD after hours. She is aware her delivery and ultrasounds will [place] place at [facility]. She and her partner are excited about this and have been trying to conceive for awhile. We reviewed first trimester education and all of her questions were answered to the best of my ability. No further questions at this time. labs and NT US have been ordered. Will call pt with NT US date and time to be done at [facility]. Review of Systems Const All systems reviewed & are unremarkable except as noted in HPI and below Reports as per HPI Eyes Reports no additional complaints ENT Reports no additional complaints Card Reports no additional complaints Resp Reports no additional complaints GI Reports as per HPI and Reports no additional complaints Reports as per HPI Musc Reports no additional complaints Skin/Breast Reports as per HPI Neuro Reports no additional complaints Psych Reports no additional complaints Endo Reports no additional complaints José/Lymph Reports no additional complaints Aller/Immun Reports no additional complaints Results AMB Urinalysis, Automated UA Leukoctes 0 Barbara/uL Last Edit by JESSICA Ferrara on 01/13/24 10:07 UA Nitrite Negative Last Edit by Thalia Yang [facility] on 01/13/24 10:07 UA Urobilinogen 0 mg/dL Last Edit by Thalia Yang Felipe on 01/13/24 10:0 7 UA Protein 0 mg/dL Last Edit by Thalia Yang [facility] on 01/13/24 10:07 UA pH 6.5 Last Edit by Thalia Yang [facility] on 01/13/24 10:07 UA Blood 1 Lalo/uL Last Edit by Thalia Yang Felipe on 01/13/24 10:07 UA Specific [place] 1.010 Last Edit by Thalia Yang Felipe on 01/13/24 10:07 UA Ketone Negative Last Edit by Thalia Yang Felipe on 01/13/24 10:07 UA Bilirubin 0 mg/dL Last Edit by Thalia Yang Felipe on 01/13/24 10:07 UA Glucose 0 mg/dL Last Edit by Thalia Yang [facility] on 01/13/24 10:07 Exam Const Constitutional General: cooperative, healthy appearing, no acute distress, well developed and alert Orientation/consciousness: patient oriented x3 HENMT Head: normal to inspection Eyes General: appearance normal, both eyes and all related structures Neck Neck: normal visual inspection Thyroid: Thyroid normal Chest Chest palpation & inspection: normal inspection of the chest and other (no pucke ring, dimpling, peau de orange, retraction, discharge, masses) Breast/axilla inspection: normal inspection of the breasts Breast/axilla palpation: normal palpation of the breasts Resp Effort & Inspection: normal respiratory effort Auscultation: clear to auscultation bilaterally Cardio Rate: regular rate Rhythm: regular rhythm Heart sounds: S1 normal heart sound present GI Inspection (GI): normal to inspection Palpation (GI): Soft to palpation General Exam: Yes bladder normal to palpation External Female Exam: normal external appearance and normal appearance of the urethra Urethra: normal appearance of the urethra Speculum exam - vagina: normal appearance of the vagina and normal discharge Speculum Exam - Cervix: normal appearance of the cervix and Other cervical findings present (Bled slightly with Pap) Bimanual exam- vagina & uterus: normal bimanual exam, normal palpation, bladder normal to palpation, normal palpation, non-tender and enlarged (11 week size) Bimanual Exam- Adnexa, other: no masses Skin General skin exam: no rashes or lesions noted Rashes: no rashes Neuro Cognition (Neuro): normal cognition Extrem General: normal to inspection Psych Attitude: cooperative Thought process: Normal thought process present Results Reviewed Results Reviewed: Laboratory Last Values Urine pH (Auto) 6.5 01/13/24 10:06 Specific [place] (Auto) 1.010 01/13/24 10:06 Urine Protein (Auto) 0 mg/dL 01/13/24 10:06 Glucose (UA)(Auto) 0 mg/dL 01/13/24 10:06 Urine Ketones (Auto) Negative 01/13/24 10:06 Urine Blood (Auto) 1 Lalo/uL 01/13/24 10:06 Urine Nitrite (Auto) Negative 01/13/24 10:06 Urine Bilirubin (Auto) 0 mg/dL 01/13/24 10:06 Urine Urobilinogen (Auto) 0 mg/dL 01/13/24 10:06 Leukocyte Esterase (Auto) 0 Barbara/uL 01/13/24 10:06 Coding Level of Care Code [place] Diagnoses Encounter for supervision of normal first in first trimester Z34.01 Trimester: first trimester Assessment & Plan Assessment & Plan (1) Encounter for supervision of normal first : Code(s): Z34.00 - Encounter for supervision of normal first , unspecified trimester Category: Medical Qualifiers: Trimester: first trimester Qualified Code(s): Z34.01 - Encounter for supervision of normal first , first trimester Plan See OB note for plan of care. This note is constructed using voice recognition software. While every effort has been made to ensure accuracy, remedial project manager errors may have been included. Orders: Orders AMB Urinalysis Automated Today Z34.90 - Encounter for supervision of normal , unspecified, unspecified trimester Pap Smear Today Z34.90 - Encounter for supervision of normal , unspecified, unspecified trimester CT NG by PCR Today Z34.90 - Encounter for supervision of normal , unspecified, unspecified trimester Bacterial Vaginosis Panel Today Z34.90 - Encounter for supervision of normal , unspecified, unspecified trimester Medications: New PNV,calcium [id number] acid 27 mg iron- 1 mg ( Vitamins Plus Low Iron) 1 tab PO DAILY 90 tabs 4RF
== END 2024-01-13 10:41 | disposition home or self-care (01) ==
LOC: HO.HWS 09:35
PROVIDERS: Visit Provider Advanced Practice Midwife
DX: Z34.01 Encounter for supervision of normal first pregnancy, first trimester (principal)
CPT/HCPCS: 25942; S3005

== ENCOUNTER 2024-01-13 09:35 | Outpatient (REF) | payer OTHER, SELFPAY | END 2024-01-13 09:36 | disposition home or self-care (01) | LOC: HO.LNP 09:35 | PROVIDERS: Visit Provider Advanced Practice Midwife | DX: Z34.01 Encounter for supervision of normal first pregnancy, first trimester (principal); Z3A.11 11 weeks gestation of pregnancy | CPT/HCPCS: 81003; 88142; 99212 ==

== ENCOUNTER 2024-01-13 10:50 | Outpatient (REF) | payer OTHER, SELFPAY ==
[2024-01-13 12:26] LABS: Hematocrit 36.6 % (37.0-47.0); Hemoglobin 12.2 g/dl (12.0-16.0); Mean Corpuscular HGB Conc 33.3 g/dl (31.0-35.0); Mean Corpuscular Hemoglobin 31.6 pg (27.0-33.0); Mean Corpuscular Volume 94.8 fL (80.0-98.0); Platelet Count 197 X10*3/uL (160-400); Red Blood Count 3.86 X10*6/uL (4.20-5.50); Red Cell Distribution Width 12.3 % (11.0-16.0); White Blood Count 9.7 X10*3/uL (4.8-10.8)
[2024-01-13 12:27] LABS: Amphetamine Screen Urine Not Detected (Not Detect); Barbiturates, Urine Not Detected (Not Detect); Benzodiazepines Screen Urine Not Detected (Not Detect); Cannabinoid Screen Urine Not Detected (Not Detect); Cocaine Screen Urine Not Detected (Not Detect); Fentanyl, urine Not Detected (Not Detect); Opiate Screen Urine Not Detected (Not Detect); Phencyclidine Screen Urine Not Detected (Not Detect)
[2024-01-14 07:53] LABS: Syphilis Screen Nonreactive (Nonreactive)
[2024-01-14 08:24] LABS: HIV AB/AG Nonreactive (Nonreactive); HIV Num 1 0.05 S/CO (0.00-0.99); Hepatitis B Surface Antigen Negative (Negative); ~HepC Num1 0.16 S/CO (0.00-0.79); ~Hepatitis C Antibody Nonreactive (Nonreactive)
[2024-01-14 11:50] LABS: CT PCR NOT DETECTED (Not Detect.); NG PCR NOT DETECTED (Not Detect.)
[2024-01-14 13:49] LABS: Rubella IgG Antibody 1.62 Index; Varicella IgG Antibody <135.00 index
[2024-01-14 14:21] LABS: BV Int Neg Control Negative (Negative); BV Int Pos Control Positive (Positive)
[2024-01-25 13:18] LABS: CF Ethnicity NG; Cystic Fibrosis NEGATIVE (NEGATIVE)
== END 2024-01-13 10:51 | disposition home or self-care (01) ==
LOC: HO.LAB 10:50
PROVIDERS: Visit Provider Advanced Practice Midwife
DX: Z34.01 Encounter for supervision of normal first pregnancy, first trimester (principal); Z3A.11 11 weeks gestation of pregnancy
CPT/HCPCS: 0353U; 80307; 81220; 85027; 86762; 86780; 86787; 86803; 86850; 86900; 87086; 87340; 87389; 87480; 87510; 87660

== ENCOUNTER 2024-02-11 14:43 | Outpatient (AMB) | payer OTHER, SELFPAY ==
--- NOTE | 2024-02-11 15:16 | MHC.OFFVISPN ---
Intake Vital Signs 02/11/24 15:19 Height 5 ft 4 in Weight 155 lb BMI 26.6 BP 118/64 Intake Visit Reasons: MARITZA General Dentist Required: No Information Interpreted: non-clinical & clinical Accompanied by: Mother Allergies minocycline [MINOCYCLINE] Allergy (Unknown, Verified 02/11/24 15:21) RASH Medication List - Last Reconciled 02/11/24 by Lata Abernathy CNM PNV,calcium 39-[id number]-umjwz acid 27 mg iron- 1 mg ( Vitamins Plus Low Iron) 1 tab PO DAILY Patient : Yes PFSH Medical History Encounter for supervision of normal first Surgical History History of placement of ear tubes Hx of adenoidectomy Family History Mother No problems noted. Father No problems noted. Maternal Grandmother No problems noted. 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 old G1 P 0 EDC:08/01/24 by 1st tri u/s Blood type: A pos Problem List: 1. Testing: Panorama: 01/13/24 - low risk, does want not want to know the gender when results come back,-02/11/2024 patient states she found out at the gender reveal its a boy NT scan: booked 01/20/24- normal 1st tri anatomy AFP:declines FAS:ordered for about 19w Glucose: early-- not ordered 28 wk glucose: CBC 1st Tri: 12.2/36.6/197 28 wk. CBC: GBS: Vaccinations: Flu: no Covid: x2 Tdap: RSV: [id number]-November: Education/Services WIC: enrolled CBE: advised/information provided Breast feeding classes: informed Social Supports/stressors: declines Living situation: alone, apt. 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 Concerns: Labor support: Plan: Infant Feeding Plans: breastfeed control: OB Visit Log Initial Weight: 133 lb Date <del>?</del> EGA Weight Gest Week Fundal Ht Present FHR move Efface % Edema BP PrePreg We Weight GTT <del>?</del> Glucose LV Protein Blood Type 01/05/24 <del>?</del> 10w 1d 143 lb (+10 lb) 143 lb <del>?</del> 01/13/24 <del>?</del> 11w 2d 149 lb (+16 lb) 11 150 110/70 149 lb <del>?</del> 02/11/24 <del>?</del> 15w 3d 155 lb (+22 lb) 15 150 absent 118/64 155 lb <del>?</del> Notes Visit Date: 02/11/24 Last Updated by: Lata Abernathy CNM Patient is here with her mother for visit at the [facility]. 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 I reviewed her labs with her which were all within normal limits. She she has a maternal grand parental edge history of diabetes but glucose screening was not ordered she is not overweight and the diabetes is slightly remote. Will await 28 week testing. I explained the option of screening for open neural tube defects via the AFP she discuss it with her mother and decided to decline. I have ordered her anatomy screen to be done at [facility] in about 1 month and sent a message to nursing to facilitate scheduling. MARITZA 4 weeks in office of choice. Visit Date: 01/13/24 Last Updated by: Chantal Lane CNM Note author: Chantal Lane CNM. 11wk. MARITZA. Presents with her mom today. Taking PNV, Doing well with no concerns. Good appetite, stays well hydrated. Denies any LOF, VB, abd. pain or urinary symptoms. Patient was unaware her labs were completed, she is agreeable to have them completed today. EPDS=3. OBPE today, pap, cultures. Reviewed: VB, when to seek emergent care. Encouraged a healthy well balanced diet, regular walking/exercise in . Hydrate well, 8-10 glasses of water daily. And labs today including panorama. RTO 4wks. Visit Date: 01/05/24 Last Updated by: Olga Stonerjennifer Sherwood is here for air compressor engineer. 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 She had US 12/14/23 at 7w0d and DAVID of 08/01/24 and GA today of 10w1d. Pt is feeling well and taking PNVs. She was given the folder and is scheduled for OB PE 01/13/24. Kaela has no medical problems and no family history of concern. FOB is Phong and both parents are involved and she has good support from her partner and family. We discussed danger signs, / MD coverage and how to reach MD after hours. She is aware her delivery and ultras[place] [facility] She and her partner are excited about this and have been trying to conceive for awhile. We reviewed first trimester education and all of her questions were answered to the best of my ability. No further questions at this time. labs and NT US have been ordered. Will call pt with NT US date and time to be done at [facility] Coding Level of Care Code Rufe Diagnoses Encounter for supervision of normal first in first trimester Z34.01 Trimester: first trimester Assessment & Plan Assessment & Plan (1) Encounter for supervision of normal first : Code(s): Z34.00 - Encounter for supervision of normal first , unspecified trimester Category: Medical Qualifiers: Trimester: first trimester Qualified Code(s): Z34.01 - Encounter for supervision of normal first , first trimester Orders: Orders US OB /maternal detail 4 Weeks Z34.00 - Encounter for supervision of normal first , unspecified trimester
[2024-02-11 15:19] VITALS: BP 118/64; BMI 26.6
== END 2024-02-11 16:14 | disposition home or self-care (01) ==
PROVIDERS: Visit Provider Advanced Practice Midwife
DX: Z34.01 Encounter for supervision of normal first pregnancy, first trimester (principal)
CPT/HCPCS: 25942

== ENCOUNTER → 2024-02-11 14:43 | Outpatient (BNVA) | payer OTHER, SELFPAY | PROVIDERS: Visit Provider Advanced Practice Midwife | DX: Z34.01 Encounter for supervision of normal first pregnancy, first trimester (principal); Z3A.15 15 weeks gestation of pregnancy; Z67.10 Type A blood, Rh positive | CPT/HCPCS: 99212 ==

== ENCOUNTER 2024-03-03 13:59 | Outpatient (AMB) | payer OTHER, SELFPAY ==
[2024-03-03 14:11] VITALS: BP 110/62; BMI 26.9
--- NOTE | 2024-03-03 14:11 | MHC.OFFVISPN ---
Intake Vital Signs 03/03/24 14:11 Height 5 ft 4 in Weight 157 lb BMI 26.9 BP 110/62 Intake Visit Reasons: MARITZA 20-24 week Rocket Assembly Operator Required: Yes Rocket Assembly Operator Language: Supervisory Training Specialist Name: Vannessa LOPEZ Information Interpreted: non-clinical & clinical Accompanied by: Self / Same As Patient Allergies minocycline [MINOCYCLINE] Allergy (Unknown, Verified 03/03/24 14:16) RASH [facility] Medical History Encounter for supervision of normal first Surgical History History of placement of ear tubes Hx of adenoidectomy Family History Mother No problems noted. Father No problems noted. Maternal Grandmother No problems noted. 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 old G1 P 0 EDC:08/01/24 by 1st tri u/s Blood type: A pos Problem List: 1. Migraines prior to - Testing: Panorama: 01/13/24 - low risk, does want not want to know the gender when results come back,-02/11/2024 patient states she found out at the gender reveal its a boy NT scan: booked 2/29/24- normal 1st tri anatomy AFP:declines FAS: booked 02/2022 Glucose: early-- not ordered 28 wk glucose: CBC 1st Tri: 12.2/36.6/197 28 wk. CBC: GBS: Vaccinations: Flu: no Covid: x2 Tdap: RSV: [id number]-November: Education/Services WIC: enrolled CBE: advised/information provided Breast feeding classes: informed Social Supports/stressors: declines Living situation: alone, apt. 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 Concerns: Labor support: Plan: Feeding Plans: breastfeed control: OB Visit Log Initial Weight: 133 lb Date <del>?</del> EGA Weight Gest Week Fundal Ht Present FHR move Efface % Edema BP PrePreg We Weight GTT <del>?</del> Glucose LV Protein Blood Type 01/05/24 <del>?</del> 10w 1d 143 lb (+10 lb) 143 lb <del>?</del> 01/13/24 <del>?</del> 11w 2d 149 lb (+16 lb) 11 150 110/70 149 lb <del>?</del> 02/11/24 <del>?</del> 15w 3d 155 lb (+22 lb) 15 150 absent 118/64 155 lb <del>?</del> 03/03/24 <del>?</del> 18w 3d 157 lb (+24 lb) 19 150 active 110/62 157 lb <del>?</del> Notes Visit Date: 03/03/24 Last Updated by: Chantal Lane CNM Note author: Chantal Lane CNM. 18.3wk. MARITZA. Taking PNV, Doing well with concerns: History of migraines prior to she reports having some increase in headaches not migraine type. She also reports she had 2 days of feeling lightheaded, no dizziness or near-syncope episode, denies any shortness of breath or heart palpitations. Currently she does not have a primary care. Good appetite, stays well hydrated. Denies any LOF, VB, abd. pain or urinary symptoms. Reviewed: PTL s/s-LOF/Ctx's/VB, headaches when to seek emergent care. discomforts, self help measures including for headache management. If repeat episodes of lightheadedness reoccur despite hydrating well and eating often she should call in to the office to be seen sooner, informed that warmer weather can cause her to feel lightheaded to prepare with layered clothing and avoiding overheating. Encouraged a healthy well balanced diet, regular walking/exercise in . Hydrate well, 8-10 glasses of water daily. RTO 4wks. Visit Date: 02/11/24 Last Updated by: Lata Abernathy CNM Patient is here with her mother for visit at the [facility]. 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 I reviewed her labs with her which were all within normal limits. She she has a maternal grand parental edge history of diabetes but glucose screening was not ordered she is not overweight and the diabetes is slightly remote. Will await 28 week testing. I explained the option of screening for open neural tube defects via the AFP she discuss it with her mother and decided to decline. I have ordered her anatomy screen to be done at [facility] in about 1 month and sent a message to nursing to facilitate scheduling. MARITZA 4 weeks in office of choice. Visit Date: 01/13/24 Last Updated by: Chantal Lane CNM Note author: Chantal Lane CNM. 11wk. MARITZA. Presents with her mom today. Taking PNV, Doing well with no concerns. Good appetite, stays well hydrated. Denies any LOF, VB, abd. pain or urinary symptoms. Patient was unaware her labs were completed, she is agreeable to have them completed today. EPDS=3. OBPE today, pap, cultures. Reviewed: VB, when to seek emergent care. Encouraged a healthy well balanced diet, regular walking/exercise in . Hydrate well, 8-10 glasses of water daily. And labs today including panorama. RTO 4wks. 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 She had US 12/14/23 at 7w0d and DAVID of 08/01/24 and GA today of 10w1d. Pt is feeling well and taking PNVs. She was given the folder and is scheduled for OB PE 01/13/24. Kaela has no medical problems and no family history of concern. FOB is Phong and both parents are involved and she has good support from her partner and family. We discussed danger signs, 14/06 MD coverage and how to reach MD after hours. She is aware her delivery and ultrasounds will take place at [facility]. She and her partner are excited about this and have been trying to conceive for awhile. We reviewed first trimester education and all of her questions were answered to the best of my ability. No further questions at this time. labs and NT US have been ordered. Will call pt with NT US date and time to be done at [facility]. Coding Level of Care Code Melvi
== END 2024-03-03 14:49 | disposition home or self-care (01) ==
PROVIDERS: Visit Provider Advanced Practice Midwife
DX: Z34.90 Encounter for supervision of normal pregnancy, unspecified, unspecified trimester (principal)
CPT/HCPCS: 25942

== ENCOUNTER → 2024-03-03 13:59 | Outpatient (BNVA) | payer OTHER, SELFPAY | PROVIDERS: Visit Provider Advanced Practice Midwife | DX: Z34.02 Encounter for supervision of normal first pregnancy, second trimester (principal); Z3A.18 18 weeks gestation of pregnancy | CPT/HCPCS: 99212 ==

== ENCOUNTER 2024-03-31 13:23 | Outpatient (AMB) | payer OTHER, SELFPAY ==
[2024-03-31 13:33] VITALS: BP 118/68; BMI 28.0
--- NOTE | 2024-03-31 13:33 | A.OFFVISPN_ITS ---
Intake Vital Signs 03/31/24 13:33 Height 5 ft 4 in Weight 163 lb BMI 28.0 BP 118/68 Intake Visit Reasons: MARITZA/30 mins Intake Note: Patient states she has been feeling discomfort in her upper abdomin she states like if it was heat. Manager Medical Writing Required: Yes Manager Medical Writing Language: Clinic Manager Name: Vannessa Valdez Allergies minocycline [MINOCYCLINE] Allergy (Unknown, Verified 03/31/24 13:40) RASH Is last menstrual period known: No Post menopausal: No Patient : Yes [facility] Medical History Encounter for supervision of normal first Surgical History History of placement of ear tubes Hx of adenoidectomy Family History Mother No problems noted. Father No problems noted. Maternal Grandmother No problems noted. 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 Sexual orientation: Straight/Heterosexual Gender identity: Female Cognitive needs: No Hearing needs: No Vision needs: No Female Reproductive History Menstrual Age of Menarche: 13 control method: none Total pregnancies: 1 Date of last pap smear: 01/14/24 (negative) History History 1 Elective abortions 0 Para 0 Spontaneous abortions 0 Hx # Term Pregnancies 0 Ectopic pregnancies 0 Hx # Pregnancies 0 Multiple births 0 Questionnaire History History : 1 Visit DAVID Calculator Estimated Delivery Date Method Current WG Current Estimate 08/01/24 Ultrasound #1 22w 3d Other Estimates 08/06/24 LMP (Uncertain) 21w 5d Expected Delivery Route/Plan Specific Issues/Plans 28 Yr. old G1 P 0 EDC:08/01/24 by 1st tri u/s Blood type: A pos Problem List: 1. Migraines prior to - 2. Low lying placenta, plan 32wk follow up-ordered 03/31/24 Testing: Panorama: 01/13/24 - low risk, does want not want to know the gender when results come back,-02/11/2024 patient states she found out at the gender reveal its a boy NT scan: booked 01/20/24- normal 1st tri anatomy AFP:declines FAS: Nl-low lying placenta Glucose: early-- not ordered 28 wk glucose: CBC 1st Tri: 12.2/36.6/197 28 wk. CBC: GBS: Vaccinations: Flu: no Covid: x2 Tdap: RSV: [id number]-November: Education/Services WIC: enrolled CBE: advised/information provided Breast feeding classes: informed Social Supports/stressors: declines Living situation: alone, apt. 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 Concerns: Labor support: Plan: Infant Feeding Plans: breastfeed control: OB Visit Log Initial Weight: 133 lb Date -?-?-?-?-?-?-?-?-?-?-?-?- EGA Weight Gest Week Fundal Ht Present FHR move Efface % Edema BP PrePreg We Weight GTT -?-?-?-?-?-?-?-?-?-?-?-?- Glucose LV Protein Blood Type 01/05/24 -?-?-?-?-?-?-?-?-?-?-?-?- 10w 1d 143 lb (+10 lb) 143 l b -?-?-?-?-?-?-?-?-?-?-?-?- 01/13/24 -?-?-?-?-?-?-?-?-?-?-?-?- 11w 2d 149 lb (+16 lb) 11 150 110/70 149 lb -?-?-?-?-?-?-?-?-?-?-?-?- 02/11/24 -?-?-?-?-?-?-?-?-?-?-?-?- 15w 3d 155 lb (+22 lb) 15 150 absent 118/64 155 lb -?-?-?-?-?-?-?-?-?-?-?-?- 03/03/24 -?-?-?-?-?-?-?-?-?-?-?-?- 18w 3d 157 lb (+24 lb) 19 150 active 110/62 157 lb -?-?-?-?-?-?-?-?-?-?-?-?- 03/31/24 -?-?-?-?-?-?-?-?-?-?-?-?- 22w 3d 163 lb (+30 lb) 22 150 active 118/68 163 lb -?-?-?-?-?-?-?-?-?-?-?-?- Notes Visit Date: 03/31/24 Last Updated by: Chantal Lane CNM Note author: Chantal Lane CNM. 22.3wk. MARITZA. Taking PNV, Doing well with no concerns. Good appetite, stays well hydrated. Denies any LOF, VB, abd. pain or urinary symptoms. Reviewed FAS-normal anatomy, low-lying placenta. Mom present at visit. Reviewed: PTL s/s-LOF/Ctx's/VB, pelvic precautions when to seek emergent care. discomforts, self help measures. Repeat ultrasound 32 weeks to check placental positioning. FM and when to call the office for further eval. Encouraged a healthy well balanced diet, regular walking/exercise in . Hydrate well, 8-10 glasses of water daily. RTO for wks. Visit Date: 03/03/24 Last Updated by: Chantal Lane CNM Note author: Chantal Lane CNM. 18.3wk. MARITZA. Taking PNV, Doing well with concerns: History of migraines prior to she reports having some increase in headaches not migraine type. She also reports she had 2 days of feeling lightheaded, no dizziness or near-syncope episode, denies any shortness of breath or heart palpitations. Currently she does not have a primary care. Good appetite, stays well hydrated. Denies any LOF, VB, abd. pain or urinary symptoms. Reviewed: PTL s/s-LOF/Ctx's/VB, headaches when to seek emergent care. discomforts, self help measures including for headache management. If repeat episodes of lightheadedness reoccur despite hydrating well and eating often she should call in to the office to be seen sooner, informed that warmer weather can cause her to feel lightheaded to prepare with layered clothing and avoiding overheating. Encouraged a healthy well balanced diet, regular walking/exercise in pre gnancy. Hydrate well, 8-10 glasses of water daily. RTO 4wks. Visit Date: 02/11/24 Last Updated by: Lata Abernathy CNM Patient is here with her mother for visit at the [facility]. 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 I reviewed her labs with her which were all within normal limits. She she has a maternal grand parental edge history of diabetes but glucose screening was not ordered she is not overweight and the diabetes is slightly remote. Will await 28 week testing. I explained the option of screening for open neural tube defects via the AFP she discuss it with her mother and decided to decline. I have ordered her anatomy screen to be done at [facility] in about 1 month and sent a message to nursing to facilitate scheduling. MARITZA 4 weeks in office of choice. Visit Date: 01/13/24 Last Updated by: Chantal Lane CNM Note author: Chantal Lane CNM. 11wk. MARITZA. Presents with her mom today. Taking PNV, Doing well with no concerns. Good appetite, stays well hydrated. Denies any LOF, VB, abd. pain or urinary symptoms. Patient was unaware her labs were completed, she is agreeable to have them completed today. EPDS=3. OBPE today, pap, cultures. Reviewed: VB, when to seek emergent care. Encouraged a healthy well balanced diet, regular walking/exercise in . Hydrate well, 8-10 glasses of water daily. And labs today including panorama. RTO 4wks. Visit Date: 01/05/24 Last Updated by: Olga Sherwood is here for family law mediator. 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 She had US 12/14/23 at 7w0d and DAVID of 08/01/24 and GA today of 10w1d. Pt is feeling well and taking PNVs. She was given the folder and is scheduled for OB PE 01/13/24. Kaela has no medical problems and no family history of concern. FOB is Phong and both parents are involved and she has good support from her partner and family. We discussed danger signs, 14/06 MD coverage and how to reach MD after hours. She is aware her delivery and [place] [facility] She and her partner are excited about this and have been trying to conceive for awhile. We reviewed first trimester education and all of her questions were answered to the best of my ability. No further questions at this time. labs and NT US have been ordered. Will call pt with NT US date and time to be done [place] [facility] Coding Level of Care Code Melvi Assessment & Plan Assessment & Plan Orders: Orders US OB follow up Today O44.42 - Low lying placenta NOS or without hemorrhage, second trimester
== END 2024-03-31 14:23 | disposition home or self-care (01) ==
LOC: HO.HWS 13:23
PROVIDERS: Visit Provider Advanced Practice Midwife
DX: Z34.90 Encounter for supervision of normal pregnancy, unspecified, unspecified trimester (principal)
CPT/HCPCS: 25942

== ENCOUNTER → 2024-03-31 13:23 | Outpatient (BNVA) | payer OTHER, SELFPAY | PROVIDERS: Visit Provider Advanced Practice Midwife | DX: O44.42 Low lying placenta NOS or without hemorrhage, second trimester (principal); Z3A.22 22 weeks gestation of pregnancy | CPT/HCPCS: 99212 ==

== ENCOUNTER 2024-04-28 10:01 | Outpatient (AMB) | payer OTHER, SELFPAY ==
--- NOTE | 2024-04-28 10:06 | A.OFFVISPN_ITS ---
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 Father No problems noted. Maternal Grandmother No problems noted. 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 old G1 P 0 EDC:08/01/24 by 1st tri u/s Blood type: A pos Problem List: 1. Migraines prior to - 2. Low lying placenta, plan 32wk follow up-ordered 03/31/24 Testing: Panorama: 01/13/24 - low risk, does want not want to know the gender when results come back,-02/11/2024 patient states she found out at the gender reveal its a boy NT scan: booked 01/20/24- normal 1st tri anatomy AFP:declines FAS: Nl-low lying placenta, repeat US 32wks- mid May requested. Glucose: early-- not ordered 28 wk glucose: CBC 1st Tri: 12.2/36.6/197 28 wk. CBC: GBS: Vaccinations: Flu: no Covid: x2 Tdap: RSV: [id number]: Education/Services WIC: enrolled CBE: advised/information provided Breast feeding classes: informed Social Supports/stressors: declines Living situation: alone, apt. 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 author: Chantal Lane CNM. OB Visit Log Initial Weight: 133 lb Date -?-?-?-?-?-?-?-?-?-?-?-?- EGA Weight Gest Week Fundal Ht Present FHR move Efface % Edema BP PrePreg We Weight GTT -?-?-?-?-?-?-?-?-?-?-?-?- Glucose LV Protein Blood Type 01/05/24 -?-?-?-?-?-?-?-?-?-?-?-?- 10w 1d 143 lb (+10 lb) 143 l b -?-?-?-?-?-?-?-?-?-?-?-?- 01/13/24 -?-?-?-?-?-?-?-?-?-?-?-?- 11w 2d 149 lb (+16 lb) 11 150 110/70 149 lb -?-?-?-?-?-?-?-?-?-?-?-?- 02/11/24 -?-?-?-?-?-?-?-?-?-?-?-?- 15w 3d 155 lb (+22 lb) 15 150 absent 118/64 155 lb -?-?-?-?-?-?-?-?-?-?-?-?- 03/03/24 -?-?-?-?-?-?-?-?-?-?-?-?- 18w 3d 157 lb (+24 lb) 19 150 active 110/62 157 lb -?-?-?-?-?-?-?-?-?-?-?-?- 03/31/24 -?-?-?-?-?-?-?-?-?-?-?-?- 22w 3d 163 lb (+30 lb) 22 150 active 118/68 163 lb -?-?-?-?-?-?-?-?-?-?-?-?- 04/28/24 -?-?-?-?-?-?-?-?-?-?-?-?- 26w 3d 164 lb (+31 lb) 27 150 active 112/66 164 lb -?-?-?-?-?-?-?-?-?-?-?-?- Notes Visit Date: 04/28/24 Last Updated by: Chantal Lane CNM 26.3wk. MARITZA. Taking PNV, Doing well with no concerns. Good appetite, stays well hydrated. Denies any LOF, VB, abd. pain or urinary symptoms. Present with mom today. Occasional cramping. Reports takes in at least 5- 8 oz glasses of fluid a day. Reviewed: PTL s/s-LOF/Ctx's/VB, when to seek emergent care. discomforts, self help measures. FM and when to call the office for further eval. Encouraged a healthy well balanced diet, regular walking/exercise in . Hydrate well, 10-12 glasses of water daily. 28 wks labs n/v. US follow up for low lying placenta ordered for 32wks. RTO 2wks. Visit Date: 03/31/24 Last Updated by: Chantal Lane CNM Note author: Chantal Lane CNM. 22.3wk. MARITZA. Taking PNV, Doing well with no concerns. Good appetite, stays well hydrated. Denies any LOF, VB, abd. pain or urinary symptoms. Reviewed FAS-normal anatomy, low-lying placenta. Mom present at visit. Reviewed: PTL s/s-LOF/Ctx's/VB, pelvic precautions when to seek emergent care. discomforts, self help measures. Repeat ultrasound 32 weeks to check placental positioning. FM and when to call the office for further eval. Encouraged a healthy well balanced diet, regular walking/exercise in . Hydrate well, 8-10 glasses of water daily. RTO for wks. Visit Date: 03/03/24 Last Updated by: Chantal Lane CNM Note author: Chantal Lane CNM. 18.3wk. MARITZA. Taking PNV, Doing well with concerns: History of migraines prior to she reports having some increase in headaches not migraine type. She also reports she had 2 days of feeling lightheaded, no dizziness or near-syncope episode, denies any shortness of breath or heart palpitations. Currently she does not have a primary care. Good appetite, stays well hydrated. Denies any LOF, VB, abd. pain or urinary symptoms. Reviewed: PTL s/s-LOF/Ctx's/VB, headaches when to seek emergent care. discomforts, self help measures including for headache management. If repeat episodes of lightheadedness reoccur despite hydrating well and eating often she should call in to the office to be seen sooner, informed that warmer weather can cause her to feel lightheaded to prepare with layered clothing and avoiding overheating. Encouraged a healthy well balanced diet, regular walking/exercise in . Hydrate well, 8-10 glasses of water daily. RTO 4wks. Visit Date: 02/11/24 Last Updated by: Lata Abernathy CNM Patient is here with her mother for visit at the [facility]. 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 I reviewed her labs with her which were all within normal limits. She she has a maternal grand parental edge history of diabetes but glucose screening was not ordered she is not overweight and the diabetes is slightly remote. Will await 28 week testing. I explained the option of screening for open neural tube defects via the AFP she discuss it with her mother and decided to decline. I have ordered her anatomy screen to be done at [facility] in about 1 month and sent a message to nursing to facilitate scheduling. MARITZA 4 weeks in office of choice. Visit Date: 01/13/24 Last Updated by: Chantal Lane CNM Note author: Chantal Lane CNM. 11wk. MARITZA. Presents with her mom today. Taking PNV, Doing well with no concerns. Good appetite, stays well hydrated. Denies any LOF, VB, abd. pain or urinary symptoms. Patient was unaware her labs were completed, she is agreeable to have them completed today. EPDS=3. OBPE today, pap, cultures. Reviewed: VB, when to seek emergent care. Encouraged a healthy well balanced diet, regular walking/exercise in . Hydrate well, 8-10 glasses of water daily. And labs today including panorama. RTO 4wks. 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 She had US 12/14/23 at 7w0d and DAVID of 08/01/24 and GA today of 10w1d. Pt is feeling well and taking PNVs. She was given the folder and is scheduled for OB PE 01/13/24. Kaela has no medical problems and no family history of concern. FOB is Phong and both parents are involved and she has good support from her partner and family. We discussed danger signs, 24/7 MD coverage and how to reach MD after hours. She is aware her delivery and ultrasounds will take place at [facility]. She and her partner are excited about this and have been trying to conceive for awhile. We reviewed first trimester education and all of her questions were answered to the best of my ability. No further questions at this time. labs and NT US have been ordered. Will call pt with NT US date and time to be done at [facility]. Coding Level of Care Code Melvi Diagnoses Low-lying placenta O44.40 Encounter for supervision of normal first in first trimester Z34.01 Trimester: first trimester Assessment & Plan Assessment & Plan (1) Low-lying placenta: Code(s): O44.40 - Low lying placenta NOS or without hemorrhage, unspecified trimester Category: Medical (2) Encounter for supervision of normal first : Code(s): Z34.00 - Encounter for supervision of normal first , unspecified trimester Category: Medical Qualifiers: Trimester: first trimester Qualified Code(s): Z34.01 - Encounter for supervision of normal first , first trimester Orders: Orders US OB follow up 06/05/24 O44.40 - Low lying placenta NOS or without hemorrhage, unspecified trimester Syphilis Screen Today Z20.2 - Contact with and (suspected) exposure to infections with a predominantly sexual mode of transmission, Z34.01 - Encounter for supervision of normal first , first trimester Complete Blood Count no Diff Today Z34.01 - Encounter for supervision of normal first , first trimester Glucose 1 Hour PP 50gm Dose Today Z34.01 - Encounter for supervision of normal first , first trimester
[2024-04-28 10:10] VITALS: BP 112/66; BMI 28.1
== END 2024-04-28 10:54 | disposition home or self-care (01) ==
PROVIDERS: Visit Provider Advanced Practice Midwife
DX: O44.40 Low lying placenta NOS or without hemorrhage, unspecified trimester (principal); Z34.01 Encounter for supervision of normal first pregnancy, first trimester
CPT/HCPCS: 25942

== ENCOUNTER → 2024-04-28 10:01 | Outpatient (BNVA) | payer OTHER, SELFPAY | PROVIDERS: Visit Provider Advanced Practice Midwife | DX: O44.42 Low lying placenta NOS or without hemorrhage, second trimester (principal); Z3A.26 26 weeks gestation of pregnancy; Z67.10 Type A blood, Rh positive | CPT/HCPCS: 99212 ==

== ENCOUNTER 2024-05-12 08:52 | Outpatient (REF) | payer OTHER, SELFPAY ==
[2024-05-12 11:57] LABS: Hematocrit 33.1 % (37.0-47.0); Mean Corpuscular HGB Conc 33.2 g/dl (31.0-35.0); Mean Corpuscular Hemoglobin 31.3 pg (27.0-33.0); Mean Platelet Volume 11.7 fL (9.4-12.3); Platelet Count 170 X10*3/uL (160-400); Red Blood Count 3.52 X10*6/uL (4.20-5.50); White Blood Count 8.5 X10*3/uL (4.8-10.8)
[2024-05-12 12:24] LABS: Glucose 1 Hour PP 50gm Dose 93 mg/dL (60-140)
[2024-05-15 08:34] LABS: Syphilis Screen Nonreactive (Nonreactive)
== END 2024-05-12 08:53 | disposition home or self-care (01) ==
LOC: HO.LAB 08:52
PROVIDERS: Visit Provider Advanced Practice Midwife
DX: O44.43 Low lying placenta NOS or without hemorrhage, third trimester (principal); Z3A.28 28 weeks gestation of pregnancy; Z20.2 Contact with and (suspected) exposure to infections with a predominantly sexual mode of transmission
CPT/HCPCS: 36415; 82950; 85027; 86780; 99212

== ENCOUNTER 2024-05-12 08:59 | Outpatient (AMB) | payer OTHER, SELFPAY ==
--- NOTE | 2024-05-12 09:01 | A.OFFVISPN_ITS ---
Intake Vital Signs 05/12/24 09:05 Height 5 ft 4 in Weight 167 lb BMI 28.7 BP 108/66 Intake Visit Reasons: ian Control Systems Eng Required: Yes Control Systems Eng Services: Control Systems Eng Present Control Systems Eng Name: Vannessa Valdez JESSICA Information Interpreted: non-clinical & clinical Accompanied by: Mother Allergies minocycline [MINOCYCLINE] Allergy (Unknown, Verified 05/12/24 09:06) RASH Patient : Yes FOR[facility]LY [facility] Medical History (Updated 04/28/24 @ 10:[address] CNM) Low lying placenta nos or without hemorrhage, second trimester Encounter for supervision of normal first Surgical History History of placement of ear tubes Hx of adenoidectomy Family History Mother No problems noted. Father No problems noted. Maternal Grandmother No problems noted. 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 Sexual orientation: Straight/Heterosexual Gender identity: Female Cognitive needs: No Hearing needs: No Vision needs: No Female Reproductive History Menstrual Age of Menarche: 13 History History 1 Elective abortions 0 Para 0 Spontaneous abortions 0 Hx # Term Pregnancies 0 Ectopic pregnancies 0 Hx # Pregnancies 0 Multiple births 0 Questionnaire [place] Depression [place] Depression Scale I have been able to laugh and see the funny side of things: Not at all I have looked forward with enjoyment to things: Hardly at all I have blamed myself unnecessarily when things went wrong: No, never I have been anxious or worried for no reason: No, not at all I have felt scared of panicky for no very good reason at all: No, not at all Things have been getting on top of me: No, I have been coping as well as ever I have been so unhappy that I have had difficulty sleeping: No, not at all I have felt sad or miserable: No, not at all I have been so unhappy that I have been crying: No, never The thought of harming myself has occurred to me: Never 6 Visit DAVID Calculator Estimated Delivery Date Method Current WG Current Estimate 08/01/24 Ultrasound #1 28w 3d Other Estimates 08/06/24 LMP (Uncertain) 27w 5d Expected Delivery Route/Plan Specific Issues/Plans 28 Yr. old G1 P 0 EDC:08/01/24 by 1st tri u/s Blood type: A pos Problem List: 1. Migraines prior to - 2. Low lying placenta, plan 32wk follow up-ordered 03/31/24 Testing: Panorama: 01/13/24 - low risk, does want not want to know the gender when results come back,-02/11/2024 patient states she found out at the gender reveal its a boy NT scan: booked 01/20/24- normal 1st tri anatomy AFP:declines FAS: Nl-low lying placenta, repeat US 32wks- mid May requested. Glucose: early-- not ordered 28 wk glucose: CBC 1st Tri: 12.2/36.6/197 28 wk. CBC: GBS: Vaccinations: Flu: no Covid: x2 Tdap: RSV: [id number]: Education/Services WIC: enrolled CBE: advised/information provided Breast feeding classes: informed Social Supports/stressors: declines Living situation: alone, apt. 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-?-?-?-?-?-?-?-?-?-?- 18w 3d 157 lb (+24 lb) 19 150 active 110/62 157 lb -?-?-?-?-?-?-?-?-?-?-?-?- 03/31/24 -?-?-?-?-?-?-?-?-?-?-?-?- 22w 3d 163 lb (+30 lb) 22 150 active 118/68 163 lb -?-?-?-?-?-?-?-?-?-?-?-?- 04/28/24 -?-?-?-?-?-?-?-?-?-?-?-?- 26w 3d 164 lb (+31 lb) 27 150 active 112/66 164 lb -?-?-?-?-?-?-?-?-?-?-?-?- 05/12/24 -?-?-?-?-?-?-?-?-?-?-?-?- 28w 3d 167 lb (+34 lb) 28 140 active 108/66 167 lb -?-?-?-?-?-?-?-?-?-?-?-?- Notes Visit Date: 05/12/24 Last Updated by: Chantal Lane CNM Note author: Chantal Lane CNM. 28.3wk. IAN. Taking PNV, Doing well with no concerns. Good appetite, stays well hydrated. Denies any LOF, VB, abd. pain or urinary symptoms. Plans 28 week labs today. EPDS=0. She reports lower extremity swelling with the heat, admits to hydrating well and eating at [employer], does not like green vegetables, tends to be picky eater. Questions about maternity leave. Mom and brother present at visit today. Reviewed: PTL s/s-LOF/Ctx's/VB, when to seek emergent care. discomforts, self help measures. FM and when to call the office for further eval. Encouraged a healthy well balanced diet, regular walking/exercise in . Hydrate well, 10-12 glasses of water daily. Plan ultrasound follow up in [facility] mid May. Childbirth classes, access to library and book reading including resources such as [employer]. Avoids excessive sodium, take out foods, and when to report for a significant edema back to the office. RTO 2wks. Visit Date: 04/28/24 Last Updated by: Chantal Lane CNM 26.3wk. IAN. Taking PNV, Doing well with no concerns. Good appetite, stays well hydrated. Denies any LOF, VB, abd. pain or urinary symptoms. Present with mom today. Occasional cramping. Reports takes in at least 5- 8 oz glasses of fluid a day. Reviewed: PTL s/s-LOF/Ctx's/VB, when to seek emergent care. discomforts, self help measures. FM and when to call the office for further eval. Encouraged a healthy well balanced diet, regular walking/exercise in . Hydrate well, 10-12 glasses of water daily. 28 wks labs n/v. US follow up for low lying placenta ordered for 32wks. RTO 2wks. Visit Date: 03/31/24 Last Updated by: Chantal Lane CNM Note author: Chantal Lane CNM. 22.3wk. IAN. Taking PNV, Doing well with no concerns. Good appetite, stays well hydrated. Denies any LOF, VB, abd. pain or urinary symptoms. Reviewed F -normal anatomy, low-lying placenta. Mom present at visit. Reviewed: PTL s/s-LOF/Ctx's/VB, pelvic precautions when to seek emergent care. discomforts, self help measures. Repeat ultrasound 32 weeks to check placental positioning. FM and when to call the office for further eval. Encouraged a healthy well balanced diet, regular walking/exercise in . Hydrate well, 8-10 glasses of water daily. RTO for wks. Visit Date: 03/03/24 Last Updated by: Chantal Lane CNM Note author: Chantal Lane CNM. 18.3wk. IAN. Taking PNV, Doing well with concerns: History of migraines prior to she reports having some increase in headaches not migraine type. She also reports she had 2 days of feeling lightheaded, no dizziness or near-syncope episode, denies any shortness of breath or heart palpitations. Currently she does not have a primary care. Good appetite, stays well hydrated. Denies any LOF, VB, abd. pain or urinary symptoms. Reviewed: PTL s/s-LOF/Ctx's/VB, headaches when to seek emergent care. discomforts, self help measures including for headache management. If repeat episodes of lightheadedness reoccur despite hydrating well and eating often she should call in to the office to be seen sooner, informed that warmer weather can cause her to feel lightheaded to prepare with layered clothing and avoiding overheating. Encouraged a healthy well balanced diet, regular walking/exercise in . Hydrate well, 8-10 glasses of water daily. RTO 4wks. Visit Date: 02/11/24 Last Updated by: Lata Abernathy CNM Patient is here with her mother for visit at the [facility]. 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 I reviewed her labs with her which were all within normal limits. She she has a maternal grand parental edge history of diabetes but glucose screening was not ordered she is not overweight and the diabetes is slightly remote. Will await 28 week testing. I explained the option of screening for open neural tube defects via the AFP she discuss it with her mother and decided to decline. I have ordered her anatomy screen to be done at [facility] in about 1 month and sent a message to nursing to facilitate scheduling. IAN 4 weeks in office of choice. Visit Date: 01/13/24 Last Updated by: Chantal Lane CNM Note author: Chantal Lane CNM. 11wk. IAN. Presents with her mom today. Taking PNV, Doing well with no concerns. Good appetite, stays well hydrated. Denies any LOF, VB, abd. pain or urinary symptoms. Patient was unaware her labs were completed, she is agreeable to have them completed today. EPDS=3. OBPE today, pap, cultures. Reviewed: VB, when to seek emergent care. Encouraged a healthy well balanced diet, regular walking/exercise in . Hydrate well, 8-10 glasses of water daily. And labs today including panorama. RTO 4wks. Visit Date: 01/05/24 Last Updated by: Olga Witt Levy Sherwood is here for director vaccine. 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 She had US 12/14/23 at 7w0d and DAVID of 08/01/24 and GA today of 10w1d. Pt is feeling well and taking PNVs. She was given the folder and is scheduled for OB PE 01/13/24. Kaela has no medical problems and no family history of concern. FOB is Phong and both parents are involved and she has good support from her partner and family. We discussed danger signs, / MD coverage and how to reach MD after hours. She is aware her delivery and ultrasounds will take place at [facility]. She and her partner are excited about this and have been trying to conceive for awhile. We reviewed first trimester education and all of her questions were answered to the best of my ability. No further questions at this time. labs and NT US have been ordered. Will call pt with NT US date and time to be done at [facility]. Coding Level of Care Code Melvi
[2024-05-12 09:05] VITALS: BP 108/66; BMI 28.7
== END 2024-05-12 09:25 | disposition home or self-care (01) ==
LOC: HO.HWS 08:59
PROVIDERS: Visit Provider Advanced Practice Midwife
DX: Z34.90 Encounter for supervision of normal pregnancy, unspecified, unspecified trimester (principal)
CPT/HCPCS: 25942

== ENCOUNTER 2024-05-31 09:01 | Outpatient (AMB) | payer OTHER, SELFPAY ==
--- NOTE | 2024-05-31 09:13 | A.OFFVISPN_ITS ---
Intake Vital Signs 05/31/24 09:14 Height 5 ft 4 in Weight 168 lb BMI 28.8 BP 106/66 Intake Visit Reasons: MARITZA/30 MINS Electrician Ship Required: Yes Electrician Ship Language: Research And Evaluation Analyst Services: Electrician Ship Present (in person) Electrician Ship Name: Vannessa LOPEZ Allergies minocycline [MINOCYCLINE] Allergy (Unknown, Verified 05/31/24 09:14) RASH Patient : Yes [facility] Medical History (Updated 04/28/24 @ 10:[address] CNM) Low lying placenta nos or without hemorrhage, second trimester Encounter for supervision of normal first Surgical History History of placement of ear tubes Hx of adenoidectomy Family History Mother No problems noted. Father No problems noted. Maternal Grandmother No problems noted. 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 old G1 P 0 EDC:08/01/24 by 1st tri u/s Blood type: A pos Problem List: 1. Migraines prior to - 2. Low lying placenta, plan 32wk follow up-ordered 03/31/24 Testing: Panorama: 01/13/24 - low risk, does want not want to know the gender when results come back,-02/11/2024 patient states she found out at the gender reveal its a boy NT scan: booked 01/20/24- normal 1st tri anatomy AFP:declines FAS: Nl-low lying placenta, repeat US 32wks- mid May requested. Glucose: early-- not ordered 28 wk glucose: 93 CBC 1st Tri: 12.2/36.6/197 28 wk. hgb. 11 GBS: Vaccinations: Flu: no Covid: x2 Tdap: RSV: [id number]-November: Education/Services WIC: enrolled CBE: advised/information provided Breast feeding classes: informed Social Supports/stressors: declines Living situation: alone, apt. 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-?-?-?-?-?-?-?-?-?-?- 18w 3d 157 lb (+24 lb) 19 150 active 110/62 157 lb -?-?-?-?-?-?-?--?-?-?-?-?- 03/31/24 -?-?-?-?-?-?-?-?-?-?-?-?- 22w 3d 163 lb (+30 lb) 22 150 active 118/68 163 lb -?-?-?-?-?-?-?-?-?-?-?-?- 04/28/24 -?-?-?-?-?-?-?-?-?-?-?-?- 26w 3d 164 lb (+31 lb) 27 150 active 112/66 164 lb -?-?-?-?-?-?-?-?-?-?-?-?- 05/12/24 -?-?-?-?-?-?-?-?-?-?-?-?- 28w 3d 167 lb (+34 lb) 28 140 active 108/66 167 lb -?-?-?-?-?-?-?-?-?-?-?-?- 05/31/24 -?-?-?-?-?-?-?-?-?-?-?-?- 31w 1d 168 lb (+35 lb) 30 140 active 106/66 168 lb -?-?-?-?-?-?-?-?-?-?-?-?- Notes Visit Date: 05/31/24 Last Updated by: Chantal Lane CNM Note author: Chantal Lane CNM. 31.1wk. MARITZA. Taking PNV, Doing well with no concerns. Good appetite, stays well hydrated. Denies any LOF, VB, abd. pain or urinary symptoms. US booked on 06/05/23. Phong present at visit. She reports watching online video's to prep for baby. Reviewed: PTL s/s-LOF/Ctx's/VB, when to seek emergent care. discomforts, self help measures. FM and when to call the office for further eval. Encouraged a healthy well balanced diet, regular walking/exercise in . Hydrate well, 10-12 glasses of water daily. Plan Tdap at next visit. RTO 2wks. Visit Date: 05/12/24 Last Updated by: Chantal Lane CNM Note author: Chantal Lane CNM. 28.3wk. MARITZA. Taking PNV, Doing well with no concerns. Good appetite, stays well hydrated. Denies any LOF, VB, abd. pain or urinary symptoms. Plans 28 week labs today. EPDS=0. She reports lower extremity swelling with the heat, admits to hydrating well and eating at [employer] does not like green vegetables, tends to be picky eater. Questions about maternity leave. Mom and brother present at visit today. Reviewed: PTL s/s-LOF/Ctx's/VB, when to seek emergent care. discomforts, self help measures. FM and when to call the office for further eval. Encouraged a healthy well balanced diet, regular walking/exercise in . Hydrate well, 10-12 glasses of water daily. Plan ultrasound follow up in [facility] mid May. Childbirth classes, access to library and book reading including resources such as [facility]. Avoids excessive sodium, take out foods, and when to report for a significant edema back to the office. RTO 2wks. Visit Date: 04/28/24 Last Updated by: Chantal Lane CNM 26.3wk. MARITZA. Taking PNV, Doing well with no concerns. Good appetite, stays well hydrated. Denies any LOF, VB, abd. pain or urinary symptoms. Present with mom today. Occasional cramping. Reports takes in at least 5- 8 oz glasses of fluid a day. Reviewed: PTL s/s-LOF/Ctx's/VB, when to seek emergent care. discomforts, self help measures. FM and when to call the office for further eval. Encouraged a healthy well balanced diet, regular walking/exercise in . Hydrate well, 10-12 glasses of water daily. 28 wks labs n/v. US follow up for low lying placenta ordered for 32wks. RTO 2wks. Visit Date: 03/31/24 Last Updated by: Chantal Lane CNM Note author: Chantal Lane CNM. 22.3wk. MARITZA. Taking PNV, Doing well with no concerns. Good appetite, stays well hydrated. Denies any LOF, VB, abd. pain or urinary symptoms. Reviewed FAS-normal anatomy, low-lying placenta. Mom present at visit. Reviewed: PTL s/s-LOF/Ctx's/VB, pelvic precautions when to seek emergent care. discomforts, self help measures. Repeat ultrasound 32 weeks to check placental positioning. FM and when to call the office for further eval. Encouraged a healthy well balanced diet, regular walking/exercise in . Hydrate well, 8-10 glasses of water daily. RTO for wks. Visit Date: 03/03/24 Last Updated by: Chantal Lane CNM Note author: Chantal Lane CNM. 18.3wk. MARITZA. Taking PNV, Doing well with concerns: History of migraines prior to she reports having some increase in headaches not migraine type. She also reports she had 2 days of feeling lightheaded, no dizziness or near-syncope episode, denies any shortness of breath or heart palpitations. Currently she does not have a primary care. Good appetite, stays well hydrated. Denies any LOF, VB, abd. pain or urinary symptoms. Reviewed: PTL s/s-LOF/Ctx's/VB, headaches when to seek emergent care. discomforts, self help measures including for headache management. If repeat episodes of lightheadedness reoccur despite hydrating well and eating often she should call in to the office to be seen sooner, informed that warmer weather can cause her to feel lightheaded to prepare with layered clothing and avoiding overheating. Encouraged a healthy well balanced diet, regular walking/exercise in . Hydrate well, 8-10 glasses of water daily. RTO 4wks. Visit Date: 02/11/24 Last Updated by: Lata Abernathy CNM Patient is here with her mother for visit at the [facility]. 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 I reviewed her labs with her which were all within normal limits. She she has a maternal grand parental edge history of diabetes but glucose screening was not ordered she is not overweight and the diabetes is slightly remote. Will await 28 week testing. I explained the option of screening for open neural tube defects via the AFP she discuss it with her mother and decided to decline. I have ordered her anatomy screen to be done at [facility] in about 1 month and sent a message to nursing to facilitate scheduling. MARITZA 4 weeks in office of choice. Visit Date: 01/13/24 Last Updated by: Chantal Lane CNM Note author: Chantal Lane CNM. 11wk. MARITZA. Presents with her mom today. Taking PNV, Doing well with no concerns. Good appetite, stays well hydrated. Denies any LOF, VB, abd. pain or urinary symptoms. Patient was unaware her labs were completed, she is agreeable to have them completed today. EPDS=3. OBPE today, pap, cultures. Reviewed: VB, when to seek emergent care. Encouraged a healthy well balanced diet, regular walking/exercise in . Hydrate well, 8-10 glasses of water daily. And labs today including panorama. RTO 4wks. Visit Date: 01/05/24 Last Updated by: Olga Witt Levy Sherwood is here for catalogue illustrator. 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 She had US 12/14/23 at 7w0d and DAVID of 08/01/24 and GA today of 10w1d. Pt is feeling well and taking PNVs. She was given the folder and is scheduled for OB PE 01/13/24. Kaela has no medical problems and no family history of concern. FOB is Phong and both parents are involved and she has good support from her partner and family. We discussed danger signs, / MD coverage and how to reach MD after hours. She is aware her delivery and ultrasounds will take place at [facility]. She and her partner are excited about this and have been trying to conceive for awhile. We reviewed first trimester education and all of her questions were answered to the best of my ability. No further questions at this time. labs and NT US have been ordered. Will call pt with NT US date and time to be done at [facility]. Results AMB Urinalysis, Automated UA Leukoctes 2 Barbara/uL Last Edit by JESSICA Ferrara on 05/31/24 09:27 UA Nitrite Negative Last Edit by Thalia Yang Felipe on 05/31/24 09:27 UA Urobilinogen 0 mg/dL Last Edit by JESSICA Ferrara on 05/31/24 09:2 7 UA Protein 0 mg/dL Last Edit by Thalia Yang Felipe on 05/31/24 09:27 UA pH 8.0 Last Edit by Thalia Yang Felipe on 05/31/24 09:27 UA Blood 0 Lalo/uL Last Edit by Thalia Yang Felipe on 05/31/24 09:27 UA Specific [place] 1.010 Last Edit by JESSICA Ferrara on 05/31/24 09:27 UA Ketone Negative Last Edit by JESSICA Ferrara on 05/31/24 09:27 UA Bilirubin 0 mg/dL Last Edit by Thalia Yang Felipe on 05/31/24 09:27 UA Glucose 0 mg/dL Last Edit by Thalia Yang Felipe on 05/31/24 09:27 Results Reviewed Results Reviewed: Laboratory Last Values Urine pH (Auto) 8.0 05/31/24 09:26 Specific [place] (Auto) 1.010 05/31/24 09:26 Urine Protein (Auto) 0 mg/dL 05/31/24 09:26 Glucose (UA)(Auto) 0 mg/dL 05/31/24 09:26 Urine Ketones (Auto) Negative 05/31/24 09:26 Urine Blood (Auto) 0 Lalo/uL 05/31/24 09:26 Urine Nitrite (Auto) Negative 05/31/24 09:26 Urine Bilirubin (Auto) 0 mg/dL 05/31/24 09:26 Urine Urobilinogen (Auto) 0 mg/dL 05/31/24 09:26 Leukocyte Esterase (Auto) 2 Barbara/uL 05/31/24 09:26 Coding Level of Care Code [place] Assessment & Plan Assessment & Plan Orders: Orders AMB Urinalysis Automated Today Z34.01 - Encounter for supervision of normal first , first trimester
[2024-05-31 09:14] VITALS: BP 106/66; BMI 28.8
== END 2024-05-31 09:43 | disposition home or self-care (01) ==
LOC: HO.HWS 09:01
PROVIDERS: Visit Provider Advanced Practice Midwife
DX: Z34.01 Encounter for supervision of normal first pregnancy, first trimester (principal)
CPT/HCPCS: 25942

== ENCOUNTER → 2024-05-31 09:01 | Outpatient (BNVA) | payer OTHER, SELFPAY | PROVIDERS: Visit Provider Advanced Practice Midwife | DX: Z34.03 Encounter for supervision of normal first pregnancy, third trimester (principal) | CPT/HCPCS: 81003; 99212 ==

== ENCOUNTER 2024-06-14 14:35 | Outpatient (AMB) | payer OTHER, SELFPAY ==
--- NOTE | 2024-06-14 14:41 | A.OFFVISPN_ITS ---
Intake Vital Signs 06/14/24 14:42 Height 5 ft 4 in Weight 173 lb BMI 29.7 BP 104/60 Intake Visit Reasons: MARITZA/30 mins Telemetry Technician Required: Yes Telemetry Technician Language: Glass Unloading Equipment Tender Name: Eyv [id number] Allergies minocycline [MINOCYCLINE] Allergy (Unknown, Verified 06/14/24 14:42) RASH Patient : Yes [facility] Medical History (Updated 04/28/24 @ 10:[address] CNM) Low lying placenta nos or without hemorrhage, second trimester Encounter for supervision of normal first Surgical History History of placement of ear tubes Hx of adenoidectomy Family History Mother No problems noted. Father No problems noted. Maternal Grandmother No problems noted. 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 old G1 P 0 EDC:08/01/24 by 1st tri u/s Blood type: A pos Problem List: 1. Migraines prior to - 2. Low lying placenta, plan 32wk follow up-ordered 03/31/24 Testing: Panorama: 01/13/24 - low risk, does want not want to know the gender when results come back,-02/11/2024 patient states she found out at the gender reveal its a boy NT scan: booked 01/20/24- normal 1st tri anatomy AFP:declines FAS: Nl-low lying placenta, repeat US 32wks- June 02- no longer low lying. Glucose: early-- not ordered 28 wk glucose: 93 CBC 1st Tri: 12.2/36.6/197 28 wk. hgb. 11 GBS: Vaccinations: Flu: no Covid: x2 Tdap: given 06/14/24 Education/Services WIC: enrolled CBE: advised/information provided Breast feeding classes: informed Social Supports/stressors: declines Living situation: alone, apt. 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 Concerns: Labor support: Plan: Feeding Plans: breastfeed control: interested in the [facility] or [facility] OB Visit Log Initial Weight: 133 lb Date -?-?-?-?-?-?-?-?-?-?-?-?- EGA Weight Gest Week Fundal Ht Present FHR move Efface % Edema BP PrePreg We Weight GTT -?-?-?-?-?-?-?-?-?-?-?-?- Glucose LV Protein Blood Type 01/05/24 -?-?-?-?-?-?-?-?-?-?-?-?- 10w 1d 143 lb (+10 lb) 143 l b -?-?-?-?-?-?-?-?-?-?-?-?- 01/13/24 -?-?-?-?-?-?-?-?-?-?-?-?- 11w 2d 149 lb (+16 lb) 11 150 110/70 149 lb -?-?-?-?-?-?-?-?-?-?-?-?- 02/11/24 -?-?-?-?-?-?-?-?-?-?-?-?- 15w 3d 155 lb (+22 lb) 15 150 absent 118/64 155 lb -?-?-?-?-?-?-?-?-?-?-?-?- 03/03/24 -?-?-?-?-?-?-?-?-?-?-?-?- 18w 3d 157 lb (+24 lb) 19 150 active 110/62 157 lb -?-?-?-?-?-?-?-?-?-?-?-?- 03/31/24 -?-?-?-?-?-?-?-?-?-?-?-?- 22w 3d 163 lb (+30 lb) 22 150 active 118/68 163 lb -?-?-?-?-?-?-?-?-?-?-?-?- 04/28/24 -?-?-?-?-?-?-?-?-?-?-?-?- 26w 3d 164 lb (+31 lb) 27 150 active 112/66 164 lb -?-?-?-?-?-?-?-?-?-?-?-?- 05/12/24 -?-?-?-?-?-?-?-?-?-?-?-?- 28w 3d 167 lb (+34 lb) 28 140 active 108/66 167 lb -?-?-?-?-?-?-?-?-?-?-?-?- 05/31/24 -?-?-?-?-?-?-?-?-?-?-?-?- 31w 1d 168 lb (+35 lb) 30 140 active 106/66 168 lb -?-?-?-?-?-?-?-?-?-?-?-?- 06/14/24 -?-?-?-?-?-?-?-?-?-?-?-?- 33w 1d 173 lb (+40 lb) 32 vtx 130 active 104/60 173 lb -?-?-?-?-?-?-?-?-?-?-?-?- Notes Visit Date: 06/14/24 Last Updated by: Chantal Lane CNM Note author: Chantal Lane CNM. 33.1wk. MARITZA. Taking PNV, Doing well with no concerns. Good appetite, stays well hydrated. Denies any LOF, VB, abd. pain or urinary symptoms. She reports mid to low back pain, pressure while walking, hip discomfort. Reviewed: PTL s/s-LOF/Ctx's/VB, when to seek emergent care. discomforts, self help measures including pelvic tilts, stretches, heating pad, PT referral if desires. FM and when to call the office for further eval. Encouraged a healthy well balanced diet, regular walking/exercise in . Hydrate well, 10-12 glasses of water daily. Tdap today. BC: Mirena or Neplanwillie, booklets given for review. RTO 2wks. Visit Date: 05/31/24 Last Updated by: Chantal Lane CNM Note author: Chantal Lane CNM. 31.1wk. MARITZA. Taking PNV, Doing well with no concerns. Good appetite, stays well hydrated. Denies any LOF, VB, abd. pain or urinary symptoms. US booked on 06/05/23. Phong present at visit. She reports watching online video's to prep for baby. Reviewed: PTL s/s-LOF/Ctx's/VB, when to seek emergent care. discomforts, self help measures. FM and when to call the office for further eval. Encouraged a healthy well balanced diet, regular walking/exercise in . Hydrate well, 10-12 glasses of water daily. Plan Tdap at next visit. RTO 2wks. Visit Date: 05/12/24 Last Updated by: Chantal Lane CNM Note author: Chantal Lane CNM. 28.3wk. MARITZA. Taking PNV, Doing well with no concerns. Good appetite, stays well hydrated. Denies any LOF, VB, abd. pain or urinary symptoms. Plans 28 week labs today. EPDS=0. She reports lower extremity swelling with the heat, admits to hydrating well and eating at [employer], does not like green vegetables, tends to be picky eater. Questions about maternity leave. Mom and brother present at visit today. Reviewed: PTL s/s-LOF/Ctx's/VB, when to seek emergent care. discomforts, self help measures. FM and when to call the office for further eval. Encouraged a healthy well balanced diet, regular walking/exercise in . Hydrate well, 10-12 glasses of water daily. Plan ultrasound follow up in [facility] May. Childbirth classes, access to library and book reading including resources such as [employer]. Avoids excessive sodium, take out foods, and when to report for a significant edema back to the office. RTO 2wks. Visit Date: 04/28/24 Last Updated by: Chantal Lane CNM 26.3wk. MARITZA. Taking PNV, Doing well with no concerns. Good appetite, stays well hydrated. Denies any LOF, VB, abd. pain or urinary symptoms. Present with mom today. Occasional cramping. Reports takes in at least 5- 8 oz glasses of fluid a day. Reviewed: PTL s/s-LOF/Ctx's/VB, when to seek emergent care. discomforts, self help measures. FM and when to call the office for further eval. Encouraged a healthy well balanced diet, regular walking/exercise in . Hydrate well, 10-12 glasses of water daily. 28 wks labs n/v. US follow up for low lying placenta ordered for 32wks. RTO 2wks. Visit Date: 03/31/24 Last Updated by: Chantal Lane CNM Note author: Chantal Lane CNM. 22.3wk. MARITZA. Taking PNV, Doing well with no concerns. Good appetite, stays well hydrated. Denies any LOF, VB, abd. pain or urinary symptoms. Reviewed FAS-normal anatomy, low-lying placenta. Mom present at visit. Reviewed: PTL s/s-LOF/Ctx's/VB, pelvic precautions when to seek emergent care. discomforts, self help measures. Repeat ultrasound 32 weeks to check placental positioning. FM and when to call the office for further eval. Encouraged a healthy well balanced diet, regular walking/exercise in . Hydrate well, 8-10 glasses of water daily. RTO for wks. Visit Date: 03/03/24 Last Updated by: Chantal Lane CNM Note author: Chantal Lane CNM. 18.3wk. MARITZA. Taking PNV, Doing well with concerns: History of migraines prior to she reports having some increase in headaches not migraine type. She also reports she had 2 days of feeling lightheaded, no dizziness or near-syncope episode, denies any shortness of breath or heart palpitations. Currently she does not have a primary care. Good appetite, stays well hydrated. Denies any LOF, VB, abd. pain or urinary symptoms. Reviewed: PTL s/s-LOF/Ctx's/VB, headaches when to seek emergent care. discomforts, self help measures including for headache management. If repeat episodes of lightheadedness reoccur despite hydrating well and eating often she should call in to the office to be seen sooner, informed that warmer weather can cause her to feel lightheaded to prepare with layered clothing and avoiding overheating. Encouraged a healthy well balanced diet, regular walking/exercise in . Hydrate well, 8-10 glasses of water daily. RTO 4wks. Visit Date: 02/11/24 Last Updated by: Lata Abernathy CNM Patient is here with her mother for visit at the [facility]. 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 I reviewed her labs with her which were all within normal limits. She she has a maternal grand parental edge history of diabetes but glucose screening was not ordered she is not overweight and the diabetes is slightly remote. Will await 28 week testing. I explained the option of screening for open neural tube defects via the AFP she discuss it with her mother and decided to decline. I have ordered her anatomy screen to be done at [facility] in about 1 month and sent a message to nursing to facilitate scheduling. MARITZA 4 weeks in office of choice. Visit Date: 01/13/24 Last Updated by: Chantal Lane CNM Note author: Chantal Lane CNM. 11wk. MARITZA. Presents with her mom today. Taking PNV, Doing well with no concerns. Good appetite, stays well hydrated. Denies any LOF, VB, abd. pain or urinary symptoms. Patient was unaware her labs were completed, she is agreeable to have them completed today. EPDS=3. OBPE today, pap, cultures. Reviewed: VB, when to seek emergent care. Encouraged a healthy well balanced diet, regular walking/exercise in . Hydrate well, 8-10 glasses of water daily. And labs today including panorama. RTO 4wks. 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 She had US 12/14/23 at 7w0d and DAVID of 08/01/24 and GA today of 10w1d. Pt is feeling well and taking PNVs. She was given the folder and is scheduled for OB PE 01/13/24. Kaela has no medical problems and no family history of concern. FOB is Phong and both parents are involved and she has good support from her partner and family. We discussed danger signs, 14/06 MD coverage and how to reach MD after hours. She is aware her delivery and ultrasounds will take place at [facility]. She and her partner are excited about this and have been trying to conceive for awhile. We reviewed first t rimester education and all of her questions were answered to the best of my ability. No further questions at this time. labs and NT US have been ordered. Will call pt with NT US date and time to be done at [facility]. Results AMB Urinalysis, Automated UA Leukoctes 0 Barbara/uL Last Edit by JESSICA Ferrara on 06/14/24 14:52 UA Nitrite Negative Last Edit by JESSICA Ferrara on 06/14/24 14:52 UA Urobilinogen 0 mg/dL Last Edit by JESSICA Ferrara on 06/14/24 14:5 2 UA Protein 0 mg/dL Last Edit by JESSICA Ferrara on 06/14/24 14:52 UA pH 6.5 Last Edit by JESSICA Ferrara on 06/14/24 14:52 UA Blood 0 Lalo/uL Last Edit by JESSICA Ferrara on 06/14/24 14:52 UA Specific [place] 1.010 Last Edit by JESSICA Ferrara on 06/14/24 14:52 UA Ketone Negative Last Edit by JESSICA Ferrara on 06/14/24 14:52 UA Bilirubin 0 mg/dL Last Edit by JESSICA Ferrara on 06/14/24 14:52 UA Glucose 0 mg/dL Last Edit by JESSICA Ferrara on 06/14/24 14:52 Immunizations Boostrix Tdap 2.5 Lf unit-8 mcg-5 Lf/0.5 mL intramuscular syringe Performing Provider: Chantal Lane CNM Performing Location: [facility] Administered by: Olga Lockett on 06/14/24 15:31 Dose Route Admin Location Dispensed Lot Number Expiration Date NDC [employer] 0.5 mL IM Left Deltoid 0.5 mL [id number] 08/17/25 30241-836-00 [employer] VIS Given Date VIS Provided VIS Publication Date 06/14/24 Single Vaccine 21 Eligibility Eligibility Date Funding Source Not [facility] Eligible 06/14/24 Private Results Reviewed Results Reviewed: Laboratory Last Values Urine pH (Auto) 6.5 06/14/24 14:51 Specific [place] (Auto) 1.010 06/14/24 14:51 Urine Protein (Auto) 0 mg/dL 06/14/24 14:51 Glucose (UA)(Auto) 0 mg/dL 06/14/24 14:51 Urine Ketones (Auto) Negative 06/14/24 14:51 Urine Blood (Auto) 0 Lalo/uL 06/14/24 14:51 Urine Nitrite (Auto) Negative 06/14/24 14:51 Urine Bilirubin (Auto) 0 mg/dL 06/14/24 14:51 Urine Urobilinogen (Auto) 0 mg/dL 06/14/24 14:51 Leukocyte Esterase (Auto) 0 Barbara/uL 06/14/24 14:51 Coding Level of Care Code [place] Assessment & Plan Assessment & Plan Orders: Orders AMB Urinalysis Automated Today Z34.01 - Encounter for supervision of normal first , first trimester TDaP Immunization Today Z23 - Encounter for immunization Medications: Refilled ferrous sulfate 325 mg PO DAILY 30 days 90 tabs 1RF
[2024-06-14 14:42] VITALS: BP 104/60; BMI 29.7
== END 2024-06-14 15:34 | disposition home or self-care (01) ==
PROVIDERS: Visit Provider Advanced Practice Midwife
DX: Z23 Encounter for immunization (principal); Z34.01 Encounter for supervision of normal first pregnancy, first trimester
CPT/HCPCS: 25942

== ENCOUNTER → 2024-06-14 14:35 | Outpatient (BNVA) | payer OTHER, SELFPAY | PROVIDERS: Visit Provider Advanced Practice Midwife | DX: Z34.03 Encounter for supervision of normal first pregnancy, third trimester (principal); Z23 Encounter for immunization; Z3A.33 33 weeks gestation of pregnancy | CPT/HCPCS: 81003; 90471; 90715; 99212 ==

== ENCOUNTER 2024-06-28 13:53 | Outpatient (AMB) | payer OTHER, SELFPAY ==
--- NOTE | 2024-06-28 13:54 | MHC.OFFVISPN ---
Intake Vital Signs 06/28/24 13:55 Height 5 ft 4 in Weight 174 lb BMI 29.9 BP 106/60 Intake Visit Reasons: MARITZA/30 mins Interpretive Naturalist Required: Yes Interpretive Naturalist Language: Director Of Distribution Name: Yuriy [id number] Information Interpreted: non-clinical & clinical Allergies minocycline [MINOCYCLINE] Allergy (Unknown, Verified 06/28/24 13:54) RASH Patient : Yes [facility] Medical History (Updated 04/28/24 @ 10:[address] CNM) Low lying placenta nos or without hemorrhage, second trimester Encounter for supervision of normal first Surgical History History of placement of ear tubes Hx of adenoidectomy Family History Mother No problems noted. Father No problems noted. Maternal Grandmother No problems noted. 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 old G1 P 0 EDC:08/01/24 by 1st tri u/s Blood type: A pos Problem List: 1. Migraines prior to - 2. Low lying placenta, no longer low-lying Testing: Panorama: 01/13/24 - low risk, does want not want to know the gender when results come back,-02/11/2024 patient states she found out at the gender reveal its a boy NT scan: booked 01/20/24- normal 1st tri anatomy AFP:declines FAS: Nl-low lying placenta, repeat US 32wks- June 02- no longer low lying. Glucose: early-- not ordered 28 wk glucose: 93 CBC 1st Tri: 12.2/36.6/197 28 wk. hgb. 11 GBS: Vaccinations: Flu: no Covid: x2 Tdap: given 06/14/24 Education/Services WIC: enrolled CBE: advised/information provided Breast feeding classes: informed Social Supports/stressors: declines Living situation: alone, apt. 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 Concerns: Labor support: Plan: Feeding Plans: breastfeed control: interested in the Mirena or Nexplanon OB Visit Log Initial Weight: 133 lb Date <del>?</del> EGA Weight Gest Week Fundal Ht Present FHR move Efface % Edema BP PrePreg We Weight GTT <del>?</del> Glucose LV Protein Blood Type 01/05/24 <del>?</del> 10w 1d 143 lb (+10 lb) 143 lb <del>?</del> 01/13/24 <del>?</del> 11w 2d 149 lb (+16 lb) 11 150 110/70 149 lb <del>?</del> 02/11/24 <del>?</del> 15w 3d 155 lb (+22 lb) 15 150 absent 118/64 155 lb <del>?</del> 03/03/24 <del>?</del> 18w 3d 157 lb (+24 lb) 19 150 active 110/62 157 lb <del>?</del> 03/31/24 <del>?</del> 22w 3d 163 lb (+30 lb) 22 150 active 118/68 163 lb <del>?</del> 04/28/24 <del>?</del> 26w 3d 164 lb (+31 lb) 27 150 active 112/66 164 lb <del>?</del> 05/12/24 <del>?</del> 28w 3d 167 lb (+34 lb) 28 140 active 108/66 167 lb <del>?</del> 05/31/24 <del>?</del> 31w 1d 168 lb (+35 lb) 30 140 active 106/66 168 lb <del>?</del> 06/14/24 <del>?</del> 33w 1d 173 lb (+40 lb) 32 vtx 130 active 104/60 173 lb <del>?</del> 06/28/24 <del>?</del> 35w 1d 174 lb (+41 lb) 33 vtx 140 active 106/60 174 lb <del>?</del> Notes Visit Date: 06/28/24 Last Updated by: Chantal Lane CNM Note author: Chantal Lane CNM. 35.1wk. MARITZA. Taking PNV, Mom at visit. She reports feeling her heart rate was faster and felt like she could not catch her breath for approx. 3min. on Wednesday, which was a hot day 90 s w/high humidity reports she hydrated, did not feel stressed and was sitting down at the time. Denies any light-headedness or dizziness. Admits to caffeine use but occasionally when she feels like it. Has occasional BHUC's, some discharge no odor or itching. Concerned that she has more harder time getting up and walking. She is interested in the Nexplanon device . Reviewed: PTL s/s-LOF/Ctx's/VB, rapid heartbeat, chest pain, shortness of breath, lightheadedness or dizziness, when to seek emergent care. discomforts, self help measures with higher summer temperatures, avoidance of overheating/dehydrating. FKC and when to call the office for further eval. Common discomforts in the 3rd trimester last month. Hydrate well, 10-12 glasses of water daily. Document signed for Nexplanon prior authorization. follow up appointment scheduled reviewed. GBS next visit. RTO 1wks. Visit Date: 06/14/24 Last Updated by: Chantal Lane CNM Note author: Chantal Lane CNM. 33.1wk. MARITZA. Taking PNV, Doing well with no concerns. Good appetite, stays well hydrated. Denies any LOF, VB, abd. pain or urinary symptoms. She reports mid to low back pain, pressure while walking, hip discomfort. Reviewed: PTL s/s-LOF/Ctx's/VB, when to seek emergent care. discomforts, self help measures including pelvic tilts, stretches, heating pad, PT referral if desires. FM and when to call the office for further eval. Encouraged a healthy well balanced diet, regular walking/exercise in . Hydrate well, 10-12 glasses of water daily. Tdap today. BC: Mirena or Neplanon, booklets given for review. RTO 2wks. Visit Date: 05/31/24 Last Updated by: Chantal Lane CNM Note author: Chantal Lane CNM. 31.1wk. MARITZA. Taking PNV, Doing well with no concerns. Good appetite, stays well hydrated. Denies any LOF, VB, abd. pain or urinary symptoms. booked on 06/05/23. Phong present at visit. She reports watching online video's to prep for baby. Reviewed: PTL s/s-LOF/Ctx's/VB, when to seek emergent care. discomforts, self help measures. FM and when to call the office for further eval. Encouraged a healthy well balanced diet, regular walking/exercise in . Hydrate well, 10-12 glasses of water daily. Plan Tdap at next visit. RTO 2wks. Visit Date: 05/12/24 Last Updated by: Chantal Lane CNM Note author: Chantal Lane CNM. 28.3wk. MARITZA. Taking PNV, Doing well with no concerns. Good appetite, stays well hydrated. Denies any LOF, VB, abd. pain or urinary symptoms. Plans 28 week labs today. EPDS=0. She reports lower extremity swelling with the heat, admits to hydrating well and eating at [employer], does not like green vegetables, tends to be picky eater. Questions about maternity leave. Mom and brother present at visit today. Reviewed: PTL s/s-LOF/Ctx's/VB, when to seek emergent care. discomforts, self help measures. FM and when to call the office for further eval. Encouraged a healthy well balanced diet, regular walking/exercise in . Hydrate well, 10-12 glasses of water daily. Plan ultrasound follow up in [facility] mid May. Childbirth classes, access to library and book reading including resources such as [employer]. Avoids excessive sodium, take out foods, and when to report for a significant edema back to the office. RTO 2wks. Visit Date: 04/28/24 Last Updated by: Chantal Lane CNM 26.3wk. MARITZA. Taking PNV, Doing well with no concerns. Good appetite, stays well hydrated. Denies any LOF, VB, abd. pain or urinary symptoms. Present with mom today. Occasional cramping. Reports takes in at least 5- 8 oz glasses of fluid a day. Reviewed: PTL s/s-LOF/Ctx's/VB, when to seek emergent care. discomforts, self help measures. FM and when to call the office for further eval. Encouraged a healthy well balanced diet, regular walking/exercise in . Hydrate well, 10-12 glasses of water daily. 28 wks labs n/v. US follow up for low lying placenta ordered for 32wks. RTO 2wks. Visit Date: 03/31/24 Last Updated by: Chantal Lane CNM Note author: Chantal Lane CNM. 22.3wk. MARITZA. Taking PNV, Doing well with no concerns. Good appetite, stays well hydrated. Denies any LOF, VB, abd. pain or urinary symptoms. Reviewed FAS-normal anatomy, low-lying placenta. Mom present at visit. Reviewed: PTL s/s-LOF/Ctx's/VB, pelvic precautions when to seek emergent care. discomforts, self help measures. Repeat ultrasound 32 weeks to check placental positioning. FM and when to call the office for further eval. Encouraged a healthy well balanced diet, regular walking/exercise in . Hydrate well, 8-10 glasses of water daily. RTO for wks. Visit Date: 03/03/24 Last Updated by: Chantal Lane CNM Note author: Chantal Lane CNM. 18.3wk. MARITZA. Taking PNV, Doing well with concerns: History of migraines prior to she reports having some increase in headaches not migraine type. She also reports she had 2 days of feeling lightheaded, no dizziness or near-syncope episode, denies any shortness of breath or heart palpitations. Currently she does not have a primary care. Good appetite, stays well hydrated. Denies any LOF, VB, abd. pain or urinary symptoms. Reviewed: PTL s/s-LOF/Ctx's/VB, headaches when to seek emergent care. discomforts, self help measures including for headache management. If repeat episodes of lightheadedness reoccur despite hydrating well and eating often she should call in to the office to be seen sooner, informed that warmer weather can cause her to feel lightheaded to prepare with layered clothing and avoiding overheating. Encouraged a healthy well balanced diet, regular walking/exercise in . Hydrate well, 8-10 glasses of water daily. RTO 4wks. Visit Date: 02/11/24 Last Updated by: Lata Abernathy CNM Patient is here with her mother for visit at the [facility]. 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 I reviewed her labs with her which were all within normal limits. She she has a maternal grand parental edge history of diabetes but glucose screening was not ordered she is not overweight and the diabetes is slightly remote. Will await 28 week testing. I explained the option of screening for open neural tube defects via the AFP she discuss it with her mother and decided to decline. I have ordered her anatomy screen to be done at [facility] in about 1 month and sent a message to nursing to facilitate scheduling. MARITZA 4 weeks in office of choice. Visit Date: 01/13/24 Last Updated by: Chantal Lane CNM Note author: Chantal Lane CNM. 11wk. MARITZA. Presents with her mom today. Taking PNV, Doing well with no concerns. Good appetite, stays well hydrated. Denies any LOF, VB, abd. pain or urinary symptoms. Patient was unaware her labs were completed, she is agreeable to have them completed today. EPDS=3. OBPE today, pap, cultures. Reviewed: VB, when to seek emergent care. Encouraged a healthy well balanced diet, regular walking/exercise in . Hydrate well, 8-10 glasses of water daily. And labs today including panorama. RTO 4wks. 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 She had US 12/14/23 at 7w0d and DAVID of 08/01/24 and GA today of 10w1d. Pt is feeling well and taking PNVs. She was given the folder and is scheduled for OB PE 01/13/24. Kaela has no medical problems and no family history of concern. FOB is Phong and both parents are involved and she has good support from her partner and family. We discussed danger signs, / MD coverage and how to reach MD after hours. She is aware her delivery and ultrasounds will take place at [facility]. She and her partner are excited about this and have been trying to conceive for awhile. We reviewed first trimester education and all of her questions were answered to the best of my ability. No further questions at this time. labs and NT US have been ordered. Will call pt with NT US date and time to be done at [facility]. Results AMB Urinalysis, Automated UA Leukoctes 0.5 Barbara/uL Last Edit by JESSICA Ferrara on 06/28/24 14:05 UA Nitrite Negative Last Edit by Thalia Yang [facility] on 06/28/24 14:05 UA Urobilinogen 0 mg/dL Last Edit by JESSICA Ferrara on 06/28/24 14:05 UA Protein 0 mg/dL Last Edit by Thalia Yang [facility] on 06/28/24 14:05 UA pH 6.5 Last Edit by Thalia Yang [facility] on 06/28/24 14:05 UA Blood 0.5 Lalo/uL Last Edit by Thalia Yang [facility] on 06/28/24 14:05 UA Specific [place] 1.005 Last Edit by LINDSEY Ferrara on 06/28/24 14:05 UA Ketone Negative Last Edit by JESSICA Ferrara on 06/28/24 14:05 UA Bilirubin 0 mg/dL Last Edit by Thalia Yang [facility] on 06/28/24 14:05 UA Glucose 0 mg/dL Last Edit by Thalia Yang Felipe on 06/28/24 14:05 Results Reviewed Results Reviewed: Laboratory Last Values Urine pH (Auto) 6.5 06/28/24 14:04 Specific [place] (Auto) 1.005 06/28/24 14:04 Urine Protein (Auto) 0 mg/dL 06/28/24 14:04 Glucose (UA)(Auto) 0 mg/dL 06/28/24 14:04 Urine Ketones (Auto) Negative 06/28/24 14:04 Urine Blood (Auto) 0.5 Lalo/uL 06/28/24 14:04 Urine Nitrite (Auto) Negative 06/28/24 14:04 Urine Bilirubin (Auto) 0 mg/dL 06/28/24 14:04 Urine Urobilinogen (Auto) 0 mg/dL 06/28/24 14:04 Leukocyte Esterase (Auto) 0.5 Barbara/uL 06/28/24 14:04 Coding Level of Care Code [place] Assessment & Plan Assessment & Plan Orders: Orders AMB Urinalysis Automated 06/28/24 Z34.01 - Encounter for supervision of normal first , first trimester
[2024-06-28 13:55] VITALS: BP 106/60; BMI 29.9
== END 2024-06-28 14:45 | disposition home or self-care (01) ==
PROVIDERS: Visit Provider Advanced Practice Midwife
DX: Z34.90 Encounter for supervision of normal pregnancy, unspecified, unspecified trimester (principal)
CPT/HCPCS: 25942

== ENCOUNTER → 2024-06-28 13:53 | Outpatient (BNVA) | payer OTHER, SELFPAY | PROVIDERS: Visit Provider Advanced Practice Midwife | DX: Z34.03 Encounter for supervision of normal first pregnancy, third trimester (principal); Z23 Encounter for immunization; Z3A.35 35 weeks gestation of pregnancy | CPT/HCPCS: 81003; 99212 ==

== ENCOUNTER 2024-07-05 12:59 | Outpatient (REF) | payer OTHER, SELFPAY ==
[2024-07-05 17:30] LABS: Bacterial Vaginosis PCR NEGATIVE (Negative); Candida Group PCR DETECTED (Not Detect); Candida glab krusei PCR NOT DETECTED (Not Detect); Trichomonas vaginalis PCR NOT DETECTED (Not Detect)
[2024-07-05 17:55] LABS: CT PCR NOT DETECTED (Not Detect.); NG PCR NOT DETECTED (Not Detect.)
== END 2024-07-05 13:00 | disposition home or self-care (01) ==
LOC: HO.LNP 12:59
PROVIDERS: Visit Provider Advanced Practice Midwife
DX: Z34.01 Encounter for supervision of normal first pregnancy, first trimester (principal); R82.79 Other abnormal findings on microbiological examination of urine
CPT/HCPCS: 0352U; 81003; 87081; 87147; 87491; 87591

== ENCOUNTER 2024-07-05 12:59 | Outpatient (AMB) | payer OTHER, SELFPAY ==
[2024-07-05 13:15] VITALS: BP 100/60; BMI 29.7
--- NOTE | 2024-07-05 13:15 | A.OFFVISPN_ITS ---
Intake Vital Signs 07/05/24 13:15 Height 5 ft 4 in Weight 173 lb BMI 29.7 BP 100/60 Intake Visit Reasons: MARITZA Planning Advisor Required: Yes Planning Advisor Language: Armored Car Messenger Services: Planning Advisor Present (in person) Planning Advisor Name: Vannessa LOPEZ Information Interpreted: non-clinical & clinical Rapid Transit Operator: Rapid Transit Operator Present (Vannessa LOPEZ) Accompanied by: Mother Allergies minocycline [MINOCYCLINE] Allergy (Unknown, Verified 07/05/24 13:15) RASH Patient : Yes [facility] Medical History (Updated 07/05/24 @ 13:[address] CNM) Small for dates affecting management of mother Low lying placenta nos or without hemorrhage, second trimester Encounter for supervision of normal first Surgical History History of placement of ear tubes Hx of adenoidectomy Family History Mother No problems noted. Father No problems noted. Maternal Grandmother No problems noted. 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 old G1 P 0 EDC:08/01/24 [facility] tri u/s Blood type: A pos Problem List: 1. Migraines prior to - 2. Low lying placenta, no longer low-lying Testing: Panorama: 01/13/24 - low risk, does want not want to know the gender when results come back,-02/11/2024 patient states she found out at the gender reveal its a boy NT scan: booked 01/20/24- normal 1st tri anatomy AFP:declines FAS: Nl-low lying placenta, repeat US 32wks- June 02- no longer low lying. Glucose: early-- not ordered 28 wk glucose: 93 CBC 1st Tri: 12.2/36.6/197 28 wk. hgb. 11 GBS: done 07/04- Vaccinations: Flu: no Covid: x2 Tdap: given 06/14/24 Education/Services WIC: enrolled CBE: advised/information provided Breast feeding classes: informed Social Supports/stressors: declines Living situation: alone, apt. 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-?-?- 15w 3d 155 lb (+22 lb) 15 150 absent 118/64 155 lb -?-?-?-?-?-?-?-?-?-?-?-?- 03/03/24 -?-?-?-?-?-?-?-?-?-?-?-?- 18w 3d 157 lb (+24 lb) 19 150 active 110/62 157 lb -?-?-?-?-?-?-?-?-?-?-?-?- 03/31/24 -?-?-?-?-?-?-?-?-?-?-?-?- 22w 3d 163 lb (+30 lb) 22 150 active 118/68 163 lb -?-?-?-?-?-?-?-?-?-?-?-?- 04/28/24 -?-?-?-?-?-?-?-?-?-?-?-?- 26w 3d 164 lb (+31 lb) 27 150 active 112/66 164 lb -?-?-?-?-?-?-?-?-?-?-?-?- 05/12/24 -?-?-?-?-?-?-?-?-?-?-?-?- 28w 3d 167 lb (+34 lb) 28 140 active 108/66 167 lb -?-?-?-?-?-?-?-?-?-?-?-?- 05/31/24 -?-?-?-?-?-?-?-?-?-?-?-?- 31w 1d 168 lb (+35 lb) 30 140 active 106/66 168 lb -?-?-?-?-?-?-?-?-?-?-?-?- 06/14/24 -?-?-?-?-?-?-?-?-?-?-?-?- 33w 1d 173 lb (+40 lb) 32 vtx 130 active 104/60 173 lb -?-?-?-?-?-?-?-?-?-?-?-?- 06/28/24 -?-?-?-?-?-?-?-?-?-?-?-?- 35w 1d 174 lb (+41 lb) 33 vtx 140 active 106/60 174 lb -?-?-?-?-?-?-?-?-?-?-?-?- 07/05/24 -?-?-?-?-?-?-?-?-?-?-?-?- 36w 1d 173 lb (+40 lb) 32 vtx 140 active 100/60 173 lb -?-?-?-?-?-?-?-?-?-?-?-?- Notes Visit Date: 07/05/24 Last Updated by: Chantal Lane CNM Note author: Chantal Lane CNM. 36.1wk. MARITZA. Taking PNV and FE. Doing well with no concerns. Good appetite, stays well hydrated. Denies any LOF, VB, abd. pain or urinary symptoms. Has her baby this weekend. Reviewed: PTL s/s-LOF/Ctx's/VB, when to seek emergent care. discomforts, self help measures. FKC and when to call the office for further eval. Encouraged a healthy well balanced diet, regular walking/exercise in . Hydrate well, 10-12 glasses of water daily. GBS, GC/CT done. SFD-US growth check ordered. RTO 1wks. Visit Date: 06/28/24 Last Updated by: Chantal Lane CNM Note author: Chantal Lane CNM. 35.1wk. MARITZA. Taking PNV, Mom at visit. She reports feeling her heart rate was faster and felt like she could not catch her breath for approx. 3min. on Wednesday, which was a hot day 90 s w/high humidity reports she hydrated, did not feel stressed and was sitting down at the time. Denies any light-headedness or dizziness. Admits to caffeine use but occasionally when she feels like it. Has occasional BHUC's, some discharge no odor or itching. Concerned that she has more harder time getting up and walking. She is interested in the Nexplanon device . Reviewed: PTL s/s-LOF/Ctx's/VB, rapid heartbeat, chest pain, shortness of breath, lightheadedness or dizziness, when to seek emergent care. discomforts, self help measures with higher summer temperatures, avoidance of overheating/dehydrating. FKC and when to call the office for further eval. Common discomforts in the 3rd trimester last month. Hydrate well, 10-12 glasses of water daily. [facility]. follow up appointment scheduled reviewed. GBS next visit. RTO 1wks. Visit Date: 06/14/24 Last Updated by: Chantal Lane CNM Note author: Chantal Lane CNM. 33.1wk. MARITZA. Taking PNV, Doing well with no concerns. Good appetite, stays well hydrated. Denies any LOF, VB, abd. pain or urinary symptoms. She reports mid to low back pain, pressure while walking, hip discomfort. Reviewed: PTL s/s-LOF/Ctx's/VB, when to seek emergent care. discomforts, self help measures including pelvic tilts, stretches, heating pad, PT referral if desires. FM and when to call the office for further eval. Encouraged a healthy well balanced diet, regular walking/exercise in . Hydrate well, 10-12 glasses of water daily. Tdap today. BC: Mirena or Neplanon, booklets given for review. RTO 2wks. Visit Date: 05/31/24 Last Updated by: Chantal Lane CNM Note author: Chantal Lane CNM. 31.1wk. MARITZA. Taking PNV, Doing well with no concerns. Good appetite, stays well hydrated. Denies any LOF, VB, abd. pain or urinary symptoms. US booked on 06/05/23. Phong present at visit. She reports watching online video's to prep for baby. Reviewed: PTL s/s-LOF/Ctx's/VB, when to seek emergent care. discomforts, self help measures. FM and when to call the office for further eval. Encouraged a healthy well balanced diet, regular walking/exercise in . Hydrate well, 10-12 glasses of water daily. Plan Tdap at next visit. RTO 2wks. Visit Date: 05/12/24 Last Updated by: Chantal Lane CNM Note author: Chantal Lane CNM. 28.3wk. MARITZA. Taking PNV, Doing well with no concerns. Good appetite, stays well hydrated. Denies any LOF, VB, abd. pain or urinary symptoms. Plans 28 week labs today. EPDS=0. She reports lower extremity swelling with the heat, admits to hydrating well and eating at [employer], does not like green vegetables, tends to be picky eater. Questions about maternity leave. Mom and brother present at visit today. Reviewed: PTL s/s-LOF/Ctx's/VB, when to seek emergent care. discomforts, self help measures. FM and when to call the office for further eval. Encouraged a healthy well balanced diet, regular walking/exercise in . Hydrate well, 10-12 glasses of water daily. Plan ultrasound follow up in [facility] mid May. Childbirth classes, access to library and book reading including resources such as [employer]. Avoids excessive sodium, take out foods, and when to report for a significant edema back to the office. RTO 2wks. Visit Date: 04/28/24 Last Updated by: Chantal Lane CNM 26.3wk. MARITZA. Taking PNV, Doing well with no concerns. Good appetite, stays well hydrated. Denies any LOF, VB, abd. pain or urinary symptoms. Present with mom today. Occasional cramping. Reports takes in at least 5- 8 oz glasses of fluid a day. Reviewed: PTL s/s-LOF/Ctx's/VB, when to seek emergent care. discomforts, self help measures. FM and when to call the office for further eval. Encouraged a healthy well balanced diet, regular walking/exercise in . Hydrate well, 10-12 glasses of water daily. 28 wks labs n/v. US follow up for low lying placenta ordered for 32wks. RTO 2wks. Visit Date: 03/31/24 Last Updated by: Chantal Lane CNM Note author: Chantal Lane CNM. 22.3wk. MARITZA. Taking PNV, Doing well with no concerns. Good appetite, stays well hydrated. Denies any LOF, VB, abd. pain or urinary symptoms. Reviewed FAS-normal anatomy, low-lying placenta. Mom present at visit. Reviewed: PTL s/s-LOF/Ctx's/VB, pelvic precautions when to seek emergent care. discomforts, self help measures. Repeat ultrasound 32 weeks to check placental positioning. FM and when to call the office for further eval. Encouraged a healthy well balanced diet, regular walking/exercise in . Hydrate well, 8-10 glasses of water daily. RTO for wks. Visit Date: 03/03/24 Last Updated by: Chantal Lane CNM Note author: Chantal Lane CNM. 18.3wk. MARITZA. Taking PNV, Doing well with concerns: History of migraines prior to she reports having some increase in headaches not migraine type. She also reports she had 2 days of feeling lightheaded, no dizziness or near-syncope episode, denies any shortness of breath or heart palpitations. Currently she does not have a primary care. Good appetite, stays well hydrated. Denies any LOF, VB, abd. pain or urinary symptoms. Reviewed: PTL s/s-LOF/Ctx's/VB, headaches when to seek emergent care. discomforts, self help measures including for headache management. If repeat episodes of lightheadedness reoccur despite hydrating well and eating often she should call in to the office to be seen sooner, informed that warmer weather can cause her to feel lightheaded to prepare with layered clothing and avoiding overheating. Encouraged a healthy well balanced diet, regular walking/exercise in . Hydrate well, 8-10 glasses of water daily. RTO 4wks. Visit Date: 02/11/24 Last Updated by: Lata Abernathy CNM Patient is here with her mother for visit at the [facility]. 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 I reviewed her labs with her which were all within normal limits. She she has a maternal grand parental edge history of diabetes but glucose screening was not ordered she is not overweight and the diabetes is slightly remote. Will await 28 week testing. I explained the option of screening for open neural tube defects via the AFP she discuss it with her mother and decided to decline. I have ordered her anatomy screen to be done at [facility] in about 1 month and sent a message to nursing to facilitate scheduling. MARITZA 4 weeks in office of choice. Visit Date: 01/13/24 Last Updated by: Chantal Lane CNM Note author: Chantal Lane CNM. 11wk. MARITZA. Presents with her mom today. Taking PNV, Doing well with no concerns. Good appetite, stays well hydrated. Denies any LOF, VB, abd. pain or urinary symptoms. Patient was unaware her labs were completed, she is agreeable to have them completed today. EPDS=3. OBPE today, pap, cultures. Reviewed: VB, when to seek emergent care. Encouraged a healthy well balanced diet, regular walking/exercise in . Hydrate well, 8-10 glasses of water daily. And labs today including panorama. RTO 4wks. Visit Date: 01/05/24 Last Updated by: Olga Stonerjennifer Sherwood is here for gambling broker. 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 She had US 12/14/23 at 7w0d and DAVID of 08/01/24 and GA today of 10w1d. Pt is feeling well and taking PNVs. She was given the folder and is scheduled for OB PE 01/13/24. Kaela has no medical problems and no family history of concern. FOB is Phong and both parents are involved and she has good support from her partner and family. We discussed danger signs, / MD coverage and how to reach MD after hours. She is aware her delivery and ultrasounds will take place at [facility]. She and her partner are excited about this and have been trying to conceive for awhile. We reviewed first trimester education and all of her questions were answered to the best of my ability. No further questions at this time. labs and NT US have been ordered. Will call pt with NT US date and time to be done at [facility]. Results AMB Urinalysis, Automated UA Leukoctes 0.5 Barbara/uL Last Edit by JESSICA Ferrara on 07/05/24 13:1 6 UA Nitrite Negative Last Edit by JESSICA Ferrara on 07/05/24 13:16 UA Urobilinogen 0 mg/dL Last Edit by Thalia Yang [facility] on 07/05/24 13:1 6 UA Protein 0 mg/dL Last Edit by Thalia Yang [facility] on 07/05/24 13:16 UA pH 6.0 Last Edit by Thalia Yang [facility] on 07/05/24 13:16 UA Blood 0.5 Lalo/uL Last Edit by Thalia Yang [facility] on 07/05/24 13:16 UA Specific Lucas 1.015 Last Edit by Thalia Yang [facility] on 07/05/24 13:16 UA Ketone Negative Last Edit by Thalia Yang [facility] on 07/05/24 13:16 UA Bilirubin 0 mg/dL Last Edit by Thalia Yang [facility] on 07/05/24 13:16 UA Glucose 0 mg/dL Last Edit by Thalia Yang [facility] on 07/05/24 13:16 Exam External Female Exam: normal external appearance and normal appearance of the urethra Urethra: normal appearance of the urethra Speculum exam - vagina: normal appearance of the vagina and abnormal vaginal discharge (white and clumpy) Speculum Exam - Cervix: normal appearance of the cervix Results Reviewed Results Reviewed: Laboratory Last Values Urine pH (Auto) 6.0 07/05/24 13:15 Specific Lucas (Auto) 1.015 07/05/24 13:15 Urine Protein (Auto) 0 mg/dL 07/05/24 13:15 Glucose (UA)(Auto) 0 mg/dL 07/05/24 13:15 Urine Ketones (Auto) Negative 07/05/24 13:15 Urine Blood (Auto) 0.5 Lalo/uL 07/05/24 13:15 Urine Nitrite (Auto) Negative 07/05/24 13:15 Urine Bilirubin (Auto) 0 mg/dL 07/05/24 13:15 Urine Urobilinogen (Auto) 0 mg/dL 07/05/24 13:15 Leukocyte Esterase (Auto) 0.5 Barbara/uL 07/05/24 13:15 Coding Diagnoses Small for dates affecting management of mother O36.5990 Assessment & Plan Assessment & Plan (1) Small for dates affecting management of mother: Code(s): O36.5990 - Maternal care for other known or suspected poor growth, unspecified trimester, not applicable or unspecified Category: Medical Orders: Orders AMB Urinalysis Automated Today Z34.01 - Encounter for supervision of normal first , first trimester US OB follow up Today O36.5990 - Maternal care for other known or suspected poor growth, unspecified trimester, not applicable or unspecified
== END 2024-07-05 13:58 | disposition home or self-care (01) ==
PROVIDERS: Visit Provider Advanced Practice Midwife
DX: Z34.01 Encounter for supervision of normal first pregnancy, first trimester (principal)

== ENCOUNTER 2024-07-12 10:30 | Outpatient (AMB) | payer OTHER, SELFPAY ==
--- NOTE | 2024-07-12 10:54 | A.OFFVISPN_ITS ---
Intake Vital Signs 07/12/24 10:55 Height 5 ft 4 in Weight 173 lb BMI 29.7 BP 112/60 Intake Visit Reasons: MARITZA Animal Shelter Clerk Required: Yes Animal Shelter Clerk Language: Systems Requirements Planner Services: Animal Shelter Clerk Present (in person) Animal Shelter Clerk Name: Vannessa Valdez JESSICA Accompanied by: Mother Allergies minocycline [MINOCYCLINE] Allergy (Unknown, Verified 07/12/24 10:55) RASH Patient : Yes [facility] Medical History (Updated 07/05/24 @ 13:[address] CNM) Small for dates affecting management of mother Low lying placenta nos or without hemorrhage, second trimester Encounter for supervision of normal first Surgical History History of placement of ear tubes Hx of adenoidectomy Family History Mother No problems noted. Father No problems noted. Maternal Grandmother No problems noted. 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 old G1 P 0 EDC:08/01/24 by 1st tri u/s Blood type: A pos Problem List: 1. Migraines prior to - 2. Low lying placenta, no longer low-lying 3. GBS positive treat in labor and delivery Testing: Panorama: 01/13/24 - low risk, does want not want to know the gender when results come back,-02/11/2024 patient states she found out at the gender reveal its a boy NT scan: booked 01/20/24- normal 1st tri anatomy AFP:declines FAS: Nl-low lying placenta, repeat US 32wks- June 02- no longer low lying. Glucose: early-- not ordered 28 wk glucose: 93 CBC 1st Tri: 12.2/36.6/197 28 wk. hgb. 11 GBS: done 07/04-positive treat in labor and delivery Vaccinations: Flu: no Covid: x2 Tdap: given 06/14/24 Education/Services WIC: enrolled CBE: advised/information provided Breast feeding classes: informed Social Supports/stressors: declines Living situation: alone, apt. 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-?-?- 15w 3d 155 lb (+22 lb) 15 150 absent 118/64 155 lb -?-?-?-?-?-?-?-?-?-?-?-?- 03/03/24 -?-?-?--?-?-?-?-?-?-?-?-?- 18w 3d 157 lb (+24 lb) 19 150 active 110/62 157 lb -?-?-?-?-?-?-?-?-?-?-?-?- 03/31/24 -?-?-?-?-?-?-?-?-?-?-?-?- 22w 3d 163 lb (+30 lb) 22 150 active 118/68 163 lb -?-?-?-?-?-?-?-?-?-?-?-?- 04/28/24 -?-?-?-?-?-?-?-?-?-?-?-?- 26w 3d 164 lb (+31 lb) 27 150 active 112/66 164 lb -?-?-?-?-?-?-?-?-?-?-?-?- 05/12/24 -?-?-?-?-?-?-?-?-?-?-?-?- 28w 3d 167 lb (+34 lb) 28 140 active 108/66 167 lb -?-?-?-?-?-?-?-?-?-?-?-?- 05/31/24 -?-?-?-?-?-?-?-?-?-?-?-?- 31w 1d 168 lb (+35 lb) 30 140 active 106/66 168 lb -?-?-?-?-?-?-?-?--?-?-?-?- 06/14/24 -?-?-?-?-?-?-?-?-?-?-?-?- 33w 1d 173 lb (+40 lb) 32 vtx 130 active 104/60 173 lb -?-?-?-?-?-?-?-?-?-?-?-?- 06/28/24 -?-?-?-?-?-?-?-?-?-?-?-?- 35w 1d 174 lb (+41 lb) 33 vtx 140 active 106/60 174 lb -?-?-?-?-?-?-?-?-?-?-?-?- 07/05/24 -?-?-?-?-?-?-?-?-?-?-?-?- 36w 1d 173 lb (+40 lb) 32 vtx 140 active 100/60 173 lb -?-?-?-?-?-?-?-?-?-?-?-?- 07/12/24 -?-?-?-?-?-?-?-?-?-?-?-?- 37w 1d 173 lb (+40 lb) 32 vtx 140 active 112/60 173 lb -?-?-?-?-?-?-?-?-?-?-?-?- Notes Visit Date: 07/12/24 Last Updated by: Chantal Lane CNM Note author: Chantal Lane CNM. 37.1wk. MARITZA. Taking PNV and iron, Doing well with no concerns. Good appetite, stays well hydrated. Denies any LOF, VB, abd. pain or urinary symptoms. Reports her grandmother's visiting now and feeding her well. Prepped at home for baby. Reviewed: PTL s/s-LOF/Ctx's/VB, when to seek emergent care. discomforts, self help measures. FKC and when to call the office for further eval. Encouraged a healthy well balanced diet, regular walking/exercise in . Hydrate well, 10-12 glasses of water daily. GBS treatment in labor. Plans Nexplanon pp, prefers to have at the hospital. RTO 1wks. Visit Date: 07/05/24 Last Updated by: Chantal Lane CNM Note author: Chantal Lane CNM. 36.1wk. MARITZA. Taking PNV and FE. Doing well with no concerns. Good appetite, stays well hydrated. Denies any LOF, VB, abd. pain or urinary symptoms. Has her baby this weekend. Reviewed: PTL s/s-LOF/Ctx's/VB, when to seek emergent care. discomforts, self help measures. FKC and when to call the office for further eval. Encouraged a healthy well balanced diet, regular walking/exercise in . Hydrate well, 10-12 glasses of water daily. GBS, GC/CT done. SFD-US growth check ordered. RTO 1wks. Visit Date: 06/28/24 Last Updated by: Chantal Lane CNM Note author: Chantal Lane CNM. 35.1wk. MARITZA. Taking PNV, Mom at visit. She reports feeling her heart rate was faster and felt like she could not catch her breath for approx. 3min. on Wednesday, which was a hot day 90 s w/high humidity reports she hydrated, did not feel stressed and was sitting down at the time. Denies any light-headedness or dizziness. Admits to caffeine use but occasionally when she feels like it. Has occasional BHUC's, some discharge no odor or itching. Concerned that she has more harder time getting up and walking. She is interested in the Nexplanon device . Reviewed: PTL s/s-LOF/Ctx's/VB, rapid heartbeat, chest pain, shortness of breath, lightheadedness or dizziness, when to seek emergent care. discomforts, self help measures with higher summer temperatures, avoidance of overheating/dehydrating. FKC and when to call the office for further eval. Common discomforts in the 3rd trimester last month. Hydrate well, 10-12 glasses of water daily. Document signed for Nexplanon prior authorization. follow up appointment scheduled reviewed. GBS next visit. RTO 1wks. Visit Date: 06/14/24 Last Updated by: Chantal Lane CNM Note author: Chantal Lane CNM. 33.1wk. MARITZA. Taking PNV, Doing well with no concerns. Good appetite, stays well hydrated. Denies any LOF, VB, abd. pain or urinary symptoms. She reports mid to low back pain, pressure while walking, hip discomfort. Reviewed: PTL s/s-LOF/Ctx's/VB, when to seek emergent care. discomforts, self help measures including pelvic tilts, stretches, heating pad, PT referral if desires. FM and when to call the office for further eval. Encouraged a healthy well balanced diet, regular walking/exercise in . Hydrate well, 10-12 glasses of water daily. Tdap today. BC: Elisa or Tyree, booklets given for review. RTO 2wks. Visit Date: 05/31/24 Last Updated by: Chantal Lane CNM Note author: Chantal Lane CNM. 31.1wk. MARITZA. Taking PNV, Doing well with no concerns. Good appetite, stays well hydrated. Denies any LOF, VB, abd. pain or urinary symptoms. US booked on 06/05/23. Phong present at visit. She reports watching online video's to prep for baby. Reviewed: PTL s/s-LOF/Ctx's/VB, when to seek emergent care. discomforts, self help measures. FM and when to call the office for further eval. Encouraged a healthy well balanced diet, regular walking/exercise in . Hydrate well, 10-12 glasses of water daily. Plan Tdap at next visit. RTO 2wks. Visit Date: 05/12/24 Last Updated by: Chantal Lane CNM Note author: Chantal Lane CNM. 28.3wk. MARITZA. Taking PNV, Doing well with no concerns. Good appetite, stays well hydrated. Denies any LOF, VB, abd. pain or urinary symptoms. Plans 28 week labs today. EPDS=0. She reports lower extremity swelling with the heat, a dmits to hydrating well and eating at [employer], does not like green vegetables, tends to be picky eater. Questions about maternity leave. Mom and brother present at visit today. Reviewed: PTL s/s-LOF/Ctx's/VB, when to seek emergent care. discomforts, self help measures. FM and when to call the office for further eval. Encouraged a healthy well balanced diet, regular walking/exercise in . Hydrate well, 10-12 glasses of water daily. Plan ultrasound follow up in [facility] mid May. Childbirth classes, access to library and book reading including resources such as [employer]. Avoids excessive sodium, take out foods, and when to report for a significant edema back to the office. RTO 2wks. Visit Date: 04/28/24 Last Updated by: Chantal Lane CNM 26.3wk. MARITZA. Taking PNV, Doing well with no concerns. Good appetite, stays well hydrated. Denies any LOF, VB, abd. pain or urinary symptoms. Present with mom today. Occasional cramping. Reports takes in at least 5- 8 oz glasses of fluid a day. Reviewed: PTL s/s-LOF/Ctx's/VB, when to seek emergent care. discomforts, self help measures. FM and when to call the office for further eval. Encouraged a healthy well balanced diet, regular walking/exercise in . Hydrate well, 10-12 glasses of water daily. 28 wks labs n/v. US follow up for low lying placenta ordered for 32wks. RTO 2wks. Visit Date: 03/31/24 Last Updated by: Chantal Lane CNM Note author: Chantal Lane CNM. 22.3wk. MARITZA. Taking PNV, Doing well with no concerns. Good appetite, stays well hydrated. Denies any LOF, VB, abd. pain or urinary symptoms. Reviewed FAS-normal anatomy, low-lying placenta. Mom present at visit. Reviewed: PTL s/s-LOF/Ctx's/VB, pelvic precautions when to seek emergent care. discomforts, self help measures. Repeat ultrasound 32 weeks to check placental positioning. FM and when to call the office for further eval. Encouraged a healthy well balanced diet, regular walking/exercise in . Hydrate well, 8-10 glasses of water daily. RTO for wks. Visit Date: 03/03/24 Last Updated by: Chantal Lane CNM Note author: Chantal Lane CNM. 18.3wk. MARITZA. Taking PNV, Doing well with concerns: History of migraines prior to she reports having some increase in headaches not migraine type. She also reports she had 2 days of feeling lightheaded, no dizziness or near-syncope episode, denies any shortness of breath or heart palpitations. Currently she does not have a primary care. Good appetite, stays well hydrated. Denies any LOF, VB, abd. pain or urinary symptoms. Reviewed: PTL s/s-LOF/Ctx's/VB, headaches when to seek emergent care. discomforts, self help measures including for headache management. If repeat episodes of lightheadedness reoccur despite hydrating well and eating often she should call in to the office to be seen sooner, informed that warmer weather can cause her to feel lightheaded to prepare with layered clothing and avoiding overheating. Encouraged a healthy well balanced diet, regular walking/exercise in . Hydrate well, 8-10 glasses of water daily. RTO 4wks. Visit Date: 02/11/24 Last Updated by: Lata Abernathy CNM Patient is here with her mother for visit at the [facility]. 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 I reviewed her labs with her which were all within normal limits. She she has a maternal grand parental edge history of diabetes but glucose screening was not ordered she is not overweight and the diabetes is slightly remote. Will await 28 week testing. I explained the option of screening for open neural tube defects via the AFP she discuss it with her mother and decided to decline. I have ordered her anatomy screen to be done at [facility] in about 1 month and sent a message to nursing to facilitate scheduling. MARITZA 4 weeks in office of choice. Visit Date: 01/13/24 Last Updated by: Chantal Lane CNM Note author: Chantal Lane CNM. 11wk. MARITZA. Presents with her mom today. Taking PNV, Doing well with no concerns. Good appetite, stays well hydrated. Denies any LOF, VB, abd. pain or urinary symptoms. Patient was unaware her labs were completed, she is agreeable to have them completed today. EPDS=3. OBPE today, pap, cultures. Reviewed: VB, when to seek emergent care. Encouraged a healthy well balanced diet, regular walking/exercise in . Hydrate well, 8-10 glasses of water daily. And labs today including panorama. RTO 4wks. 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 She had US 12/14/23 at 7w0d and DAVID of 08/01/24 and GA today of 10w1d. Pt is feeling well and taking PNVs. She was given the folder and is scheduled for OB PE 01/13/24. Kaela has no medical problems and no family history of concern. FOB is Phong and both parents are involved and she has good support from her partner and family. We discussed danger signs, 14/06 MD coverage and how to reach MD after hours. She is aware her delivery and ultrasounds will take place at [facility]. She and her partner are excited about this and have been trying to conceive for awhile. We reviewed first trimest er education and all of her questions were answered to the best of my ability. No further questions at this time. labs and NT US have been ordered. Will call pt with NT US date and time to be done at [facility]. Coding Level of Care Code [place]
[2024-07-12 10:55] VITALS: BP 112/60; BMI 29.7
== END 2024-07-12 11:34 | disposition home or self-care (01) ==
LOC: HO.HWS 10:30
PROVIDERS: Visit Provider Advanced Practice Midwife
DX: Z34.01 Encounter for supervision of normal first pregnancy, first trimester (principal)
CPT/HCPCS: 25942

== ENCOUNTER → 2024-07-12 10:30 | Outpatient (BNVA) | payer OTHER, SELFPAY | PROVIDERS: Visit Provider Advanced Practice Midwife | DX: O98.813 Other maternal infectious and parasitic diseases complicating pregnancy, third trimester (principal); B95.1 Streptococcus, group B, as the cause of diseases classified elsewhere; O44.43 Low lying placenta NOS or without hemorrhage, third trimester; Z3A.37 37 weeks gestation of pregnancy; Z67.10 Type A blood, Rh positive | CPT/HCPCS: 81003; 99212 ==

== ENCOUNTER 2024-07-18 11:14 | Outpatient (AMB) | payer OTHER, SELFPAY ==
--- NOTE | 2024-07-18 11:15 | A.OFFVISPN_ITS ---
Intake Vital Signs 07/18/24 11:16 Height 5 ft 4 in Weight 176 lb BMI 30.2 BP 108/60 Intake Visit Reasons: MARITZA 30-32 weeks Milk Deliverer Required: Yes Milk Deliverer Language: Guest Service Representative Services: Milk Deliverer Present (in person) Milk Deliverer Name: Vannessa Valdez JESSICA Information Interpreted: non-clinical & clinical Allergies minocycline [MINOCYCLINE] Allergy (Unknown, Verified 07/18/24 11:15) RASH Patient : Yes [facility] Medical History (Updated 07/05/24 @ 13:[address] CNM) Small for dates affecting management of mother Low lying placenta nos or without hemorrhage, second trimester Encounter for supervision of normal first Surgical History History of placement of ear tubes Hx of adenoidectomy Family History Mother No problems noted. Father No problems noted. Maternal Grandmother No problems noted. 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 old G1 P 0 EDC:08/01/24 by 1st tri u/s Blood type: A pos Problem List: 1. Migraines prior to - 2. Low lying placenta, no longer low-lying 3. GBS positive treat in labor and delivery Testing: Panorama: 01/13/24 - low risk, does want not want to know the gender when results come back,-02/11/2024 patient states she found out at the gender reveal its a boy NT scan: booked 01/20/24- normal 1st tri anatomy AFP:declines FAS: Nl-low lying placenta, repeat US 32wks- June 02- no longer low lying. Glucose: early-- not ordered 28 wk glucose: 93 CBC 1st Tri: 12.2/36.6/197 28 wk. hgb. 11 GBS: done 07/04-positive treat in labor and delivery Vaccinations: Flu: no Covid: x2 Tdap: given 06/14/24 Education/Services WIC: enrolled CBE: advised/information provided Breast feeding classes: informed Social Supports/stressors: declines Living situation: alone, apt. 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-?-?- 15w 3d 155 lb (+22 lb) 15 150 absent 118/64 155 lb -?-?-?-?-?-?-?-?-?-?-?-?- 03/03/24 -?-?-?-?-?-?-?-?-?-?-?-?- 18w 3d 157 lb (+24 lb) 19 150 active 110/62 157 lb -?-?-?-?-?-?-?-?-?-?-?-?- 03/31/24 -?-?-?-?-?-?-?-?-?-?-?-?- 22w 3d 163 lb (+30 lb) 22 150 active 118/68 163 lb -?-?-?-?--?-?-?-?-?-?-?-?- 04/28/24 -?-?-?-?-?-?-?-?-?-?-?-?- 26w 3d 164 lb (+31 lb) 27 150 active 112/66 164 lb -?-?-?-?-?-?-?-?-?-?-?-?- 05/12/24 -?-?-?-?-?-?-?-?-?-?-?-?- 28w 3d 167 lb (+34 lb) 28 140 active 108/66 167 lb -?-?-?-?-?-?-?-?-?-?-?-?- 05/31/24 -?-?-?-?-?-?-?-?-?-?-?-?- 31w 1d 168 lb (+35 lb) 30 140 active 106/66 168 lb -?-?-?-?-?-?-?-?-?-?-?-?- 06/14/24 -?-?-?-?-?-?-?-?-?-?-?-?- 33w 1d 173 lb (+40 lb) 32 vtx 130 active 104/60 173 lb -?-?-?-?-?-?-?-?-?-?-?-?- 06/28/24 -?-?-?-?-?-?-?-?-?-?-?-?- 35w 1d 174 lb (+41 lb) 33 vtx 140 active 106/60 174 lb -?-?-?-?-?-?-?-?-?-?-?-?- 07/05/24 -?-?-?-?-?-?-?-?-?-?-?-?- 36w 1d 173 lb (+40 lb) 32 vtx 140 active 100/60 173 lb -?-?-?-?-?-?-?-?-?-?-?-?- 07/12/24 -?-?-?-?-?-?-?-?-?-?-?-?- 37w 1d 173 lb (+40 lb) 32 vtx 140 active 112/60 173 lb -?-?-?-?-?-?-?-?-?-?-?-?- 07/18/24 -?-?-?-?-?-?-?-?-?-?-?-?- 38w 0d 176 lb (+43 lb) 34 vtx 140 active 108/60 176 lb -?-?-?-?-?-?-?-?-?-?-?-?- Notes Visit Date: 07/18/24 Last Updated by: Chantal Lane CNM Note author: Chantal Lane CNM. 38wk. MARITZA. Taking PNV, Doing well with no concerns. Good appetite, stays well hydrated. Denies any LOF, VB, abd. pain or urinary symptoms. She reports Sg Smith contractions and pressure, U/C's resolve with fluids. US follow up: 07/20/24 at [facility]. Reviewed: Signs and symptoms of labor-LOF/Ctx's/VB, when to seek emergent care. discomforts, self help measures. FKC and when to call the office for further eval. Encouraged a healthy well balanced diet, regular walking/exercise in . Hydrate well, 10-12 glasses of water daily. RTO 1wks. Visit Date: 07/12/24 Last Updated by: Chantal Lane CNM Note author: Chantal Lane CNM. 37.1wk. MARITZA. Taking PNV and iron, Doing well with no concerns. Good appetite, stays well hydrated. Denies any LOF, VB, abd. pain or urinary symptoms. Reports her grandmother's visiting now and feeding her well. Prepped at home for baby. Reviewed: PTL s/s-LOF/Ctx's/VB, when to seek emergent care. discomforts, self help measures. FKC and when to call the office for further eval. Encouraged a healthy well balanced diet, regular walking/exercise in . Hydrate well, 10-12 glasses of water daily. GBS treatment in labor. Plans Nexplanon pp, prefers to have at the hospital. RTO 1wks. Visit Date: 07/05/24 Last Updated by: Chantal Lane CNM Note author: Chantal Lane CNM. 36.1wk. MARITZA. Taking PNV and FE. Doing well with no concerns. Good ap petite, stays well hydrated. Denies any LOF, VB, abd. pain or urinary symptoms. Has her baby this weekend. Reviewed: PTL s/s-LOF/Ctx's/VB, when to seek emergent care. discomforts, self help measures. FKC and when to call the office for further eval. Encouraged a healthy well balanced diet, regular walking/exercise in . Hydrate well, 10-12 glasses of water daily. GBS, GC/CT done. SFD-US growth check ordered. RTO 1wks. Visit Date: 06/28/24 Last Updated by: Chantal Lane CNM Note author: Chantal Lane CNM. 35.1wk. MARITZA. Taking PNV, Mom at visit. She reports feeling her heart rate was faster and felt like she could not catch her breath for approx. 3min. on Wednesday, which was a hot day 90 s w/high humidity reports she hydrated, did not feel stressed and was sitting down at the time. Denies any light-headedness or dizziness. Admits to caffeine use but occasionally when she feels like it. Has occasional BHUC's, some discharge no odor or itching. Concerned that she has more harder time getting up and walking. She is interested in the Nexplanon device . Reviewed: PTL s/s-LOF/Ctx's/VB, rapid heartbeat, chest pain, shortness of breath, lightheadedness or dizziness, when to seek emergent care. discomforts, self help measures with higher summer temperatures, avoidance of overheating/dehydrating. FKC and when to call the office for further eval. Common discomforts in the 3rd trimester last month. Hydrate well, 10-12 glasses of water daily. Document signed for [facility] prior authorization. follow up appointment scheduled reviewed. GBS next visit. RTO 1wks. Visit Date: 06/14/24 Last Updated by: Chantal Lane CNM Note author: Chantal Lane CNM. 33.1wk. MARITZA. Taking PNV, Doing well with no concerns. Good appetite, stays well hydrated. Denies any LOF, VB, abd. pain or urinary symptoms. She reports mid to low back pain, pressure while walking, hip discomfort. Reviewed: PTL s/s-LOF/Ctx's/VB, when to seek emergent care. discomforts, self help measures including pelvic tilts, stretches, heating pad, PT referral if desires. FM and when to call the office for further eval. Encouraged a healthy well balanced diet, regular walking/exercise in . Hydrate well, 10-12 glasses of water daily. Tdap today. BC: Mirena or Neplanon, booklets given for review. RTO 2wks. Visit Date: 05/31/24 Last Updated by: Chantal Lane CNM Note author: Chantal Lane CNM. 31.1wk. MARITZA. Taking PNV, Doing well with no concerns. Good appetite, stays well hydrated. Denies any LOF, VB, abd. pain or urinary symptoms. US booked on 06/05/23. Phong present at visit. She reports watching online video's to prep for baby. Reviewed: PTL s/s-LOF/Ctx's/VB, when to seek emergent care. discomforts, self help measures. FM and when to call the office for further eval. Encouraged a healthy well balanced diet, regular walking/exercise in . Hydrate well, 10-12 glasses of water daily. Plan Tdap at next visit. RTO 2wks. Visit Date: 05/12/24 Last Updated by: Chantal Lane CNM Note author: Chantal Lane CNM. 28.3wk. MARITZA. Taking PNV, Doing well with no concerns. Good appetite, stays well hydrated. Denies any LOF, VB, abd. pain or urinary symptoms. Plans 28 week labs today. EPDS=0. She reports lower extremity swelling with the heat, admits to hydrating well and eating at [employer], does not like green vegetables, tends to be picky eater. Questions about maternity leave. Mom and brother present at visit today. Reviewed: PTL s/s-LOF/Ctx's/VB, when to seek emergent care. discomforts, self help measures. FM and when to call the office for further eval. Encouraged a healthy well balanced diet, regular walking/exercise in . Hydrate well, 10-12 glasses of water daily. Plan ultrasound follow up in [facility] mid May. Childbirth classes, access to library and book reading including resources such as [employer]. Avoids excessive sodium, take out foods, and when to report for a significant edema back to the office. RTO 2wks. Visit Date: 04/28/24 Last Updated by: Chantal Lane CNM 26.3wk. MARITZA. Taking PNV, Doing well with no concerns. Good appetite, stays well hydrated. Denies any LOF, VB, abd. pain or urinary symptoms. Present with mom today. Occasional cramping. Reports takes in at least 5- 8 oz glasses of fluid a day. Reviewed: PTL s/s-LOF/Ctx's/VB, when to seek emergent care. discomforts, self help measures. FM and when to call the office for further eval. Encouraged a healthy well balanced diet, regular walking/exercise in . Hydrate well, 10-12 glasses of water daily. 28 wks labs n/v. US follow up for low lying placenta ordered for 32wks. RTO 2wks. Visit Date: 03/31/24 Last Updated by: Chantal Lane CNM Note author: Chantal Lane CNM. 22.3wk. MARITZA. Taking PNV, Doing well with no concerns. Good appetite, stays well hydrated. Denies any LOF, VB, abd. pain or urinary symptoms. Reviewed FAS-normal anatomy, low-lying placenta. Mom present at visit. Reviewed: PTL s/s-LOF/Ctx's/VB, pelvic precautions when to seek emergent care. discomforts, self help measures. Repeat ultrasound 32 weeks to check placental positioning. FM and when to call the office for further eval. Encouraged a healthy well balanced diet, regular walking/exercise in . Hydrate well, 8-10 glasses of water daily. RTO for wks. Visit Date: 03/03/24 Last Updated by: Chantal Lane CNM Note author: Chantal Lane CNM. 18.3wk. MARITZA. Taking PNV, Doing well with concerns: History of migraines prior to she reports having some increase in headaches not migraine type. She also reports she had 2 days of feeling lightheaded, no dizziness or near-syncope episode, denies any shortness of breath or heart palpitations. Currently she does not have a primary care. Good appetite, stays well hydrated. Denies any LOF, VB, abd. pain or urinary symptoms. Reviewed: PTL s/s-LOF/Ctx's/VB, headaches when to seek emergent care. discomforts, self help measures including for headache management. If repeat episodes of lightheadedness reoccur despite hydrating well and eating often she should call in to the office to be seen sooner, informed that warmer weather can cause her to feel lightheaded to prepare with layered clothing and avoiding overheating. Encouraged a healthy well balanced diet, regular walking/exercise in . Hydrate well, 8-10 glasses of water daily. RTO 4wks. Visit Date: 02/11/24 Last Updated by: Lata Abernathy CNM Patient is here with her mother for visit at the [facility]. 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 I reviewed her labs with her which were all within normal limits. She she has a maternal grand parental edge history of diabetes but glucose screening was not ordered she is not overweight and the diabetes is slightly remote. Will await 28 week testing. I explained the option of screening for open neural tube defects via the AFP she discuss it with her mother and decided to decline. I have ordered her anatomy screen to be done at [facility] in about 1 month and sent a message to nursing to facilitate scheduling. MARITZA 4 weeks in office of choice. Visit Date: 01/13/24 Last Updated by: Chantal Lane CNM Note author: Chantal Lane CNM. 11wk. MARITZA. Presents with her mom today. Taking PNV, Doing well with no concerns. Good appetite, stays well hydrated. Denies any LOF, VB, abd. pain or urinary symptoms. Patient was unaware her labs were completed, she is agreeable to have them completed today. EPDS=3. OBPE today, pap, cultures. Reviewed: VB, when to seek emergent care. Encouraged a healthy well balanced diet, regular walking/exercise in . Hydrate well, 8-10 glasses of water daily. And labs today including panorama. RTO 4wks. Visit Date: 01/05/24 Last Updated by: Olga Witt Levy Sherwood is here for in house cra. 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 She had US 12/14/23 at 7w0d and DAVID of 08/01/24 and GA today of 10w1d. Pt is feeling well and taking PNVs. She was given the folder and is scheduled for OB PE 01/13/24. Kaela has no medical problems and no family history of concern. FOB is Phong and both parents are involved and she has good support from her partner and family. We discussed danger signs, 14/06 MD coverage and how to reach MD after hours. She is aware her delivery and ultrasounds will take place at [facility]. She and her partner are excited about this and have been trying to conceive for awhile. We reviewed first trimester education and all of her questions were answered to the best of my ability. No further questions at this time. labs and NT US have been ordered. Will call pt with NT US date and time to be done at [facility]. Results AMB Urinalysis, Automated UA Leukoctes 0 Barbara/uL Last Edit by JESSICA Ferrara on 07/18/24 11:23 UA Nitrite Negative Last Edit by LINDSEY FerraraFelipe on 07/18/24 11:23 UA Urobilinogen 0 mg/dL Last Edit by Thalia Yang Felipe on 07/18/24 11:2 3 UA Protein 0 mg/dL Last Edit by Thalia Ynag A on 07/18/24 11:23 UA pH 7.0 Last Edit by Thalia Yang A on 07/18/24 11:23 UA Blood 0 Lalo/uL Last Edit by Thalia Yang A on 07/18/24 11:23 UA Specific Woden 1.010 Last Edit by Thalia Yang A on 07/18/24 11:23 UA Ketone Negative Last Edit by Thalia Yang Felipe on 07/18/24 11:23 UA Bilirubin 0 mg/dL Last Edit by Thalia Yang A on 07/18/24 11:23 UA Glucose 0 mg/dL Last Edit by Thalia Yang Felipe on 07/18/24 11:23 Results Reviewed Results Reviewed: Laboratory Last Values Urine pH (Auto) 7.0 07/18/24 11:22 Specific Woden (Auto) 1.010 07/18/24 11:22 Urine Protein (Auto) 0 mg/dL 07/18/24 11:22 Glucose (UA)(Auto) 0 mg/dL 07/18/24 11:22 Urine Ketones (Auto) Negative 07/18/24 11:22 Urine Blood (Auto) 0 Lalo/uL 07/18/24 11:22 Urine Nitrite (Auto) Negative 07/18/24 11:22 Urine Bilirubin (Auto) 0 mg/dL 07/18/24 11:22 Urine Urobilinogen (Auto) 0 mg/dL 07/18/24 11:22 Leukocyte Esterase (Auto) 0 Barbara/uL 07/18/24 11:22 Coding Level of Care Code [place] Assessment & Plan Assessment & Plan Orders: Orders AMB Urinalysis Automated Today Z34.01 - Encounter for supervision of normal first , first trimester
[2024-07-18 11:16] VITALS: BP 108/60; BMI 30.2
== END 2024-07-18 14:25 | disposition home or self-care (01) ==
PROVIDERS: Visit Provider Advanced Practice Midwife
DX: Z34.01 Encounter for supervision of normal first pregnancy, first trimester (principal)
CPT/HCPCS: 25942

== ENCOUNTER → 2024-07-18 11:14 | Outpatient (BNVA) | payer OTHER, SELFPAY | PROVIDERS: Visit Provider Advanced Practice Midwife | DX: Z34.01 Encounter for supervision of normal first pregnancy, first trimester (principal) | CPT/HCPCS: 81003; 99212 ==

== ENCOUNTER 2024-07-25 10:35 | Outpatient (AMB) | payer OTHER, SELFPAY ==
--- NOTE | 2024-07-25 10:36 | A.OFFVISPN_ITS ---
Intake Vital Signs 07/25/24 10:43 Height 5 ft 4 in Weight 177 lb BMI 30.4 BP 100/60 Intake Visit Reasons: MARITZA 39 weeks Science Editor Required: Yes Science Editor Language: Bicycle Service Technician Services: Science Editor Present (in person) Science Editor Name: Vannessa LOPEZ Information Interpreted: non-clinical & clinical Overlay Plastician: Overlay Plastician Present (Vannessa PORTILLOFelipe) Accompanied by: Self / Same As Patient Allergies minocycline [MINOCYCLINE] Allergy (Unknown, Verified 07/25/24 10:44) RASH Patient : Yes [facility] Medical History (Updated 07/05/24 @ 13:[address] CNM) Small for dates affecting management of mother Low lying placenta nos or without hemorrhage, second trimester Encounter for supervision of normal first Surgical History History of placement of ear tubes Hx of adenoidectomy Family History Mother No problems noted. Father No problems noted. Maternal Grandmother No problems noted. 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 old G1 P 0 EDC:08/01/24 [facility] tri u/s Blood type: A pos Problem List: 1. Migraines prior to - 2. Low lying placenta, no longer low-lying 3. GBS positive treat in labor and delivery Testing: Panorama: 01/13/24 - low risk, does want not want to know the gender when results come back,-02/11/2024 patient states she found out at the gender reveal its a boy NT scan: booked 01/20/24- normal 1st tri anatomy AFP:declines FAS: Nl-low lying placenta, repeat US 32wks- June 02- no longer low lying. Glucose: early-- not ordered 28 wk glucose: 93 CBC 1st Tri: 12.2/36.6/197 28 wk. hgb. 11 GBS: done 07/04-positive treat in labor and delivery Vaccinations: Flu: no Covid: x2 Tdap: given 06/14/24 Education/Services WIC: enrolled CBE: advised/information provided Breast feeding classes: informed Social Supports/stressors: declines Living situation: alone, apt. 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 Concerns: Labor support: Plan: unsure, but leaning towards an epidural-07/04 Infant Feeding Plans: breastfeed control: planning Nexplanon OB Visit Log Initial Weight: 133 lb Date -?-?-?-?-?-?-?-?-?-?-?-?- EGA Weight Gest Week Fundal Ht Present FHR move Efface % Edema BP PrePreg We Weight GTT -?-?-?-?--?-?-?-?-?-?-?-?- Glucose LV Protein Blood Type 01/05/24 -?-?-?-?-?-?-?-?-?-?-?-?- 10w 1d 143 lb (+10 lb) 143 l b -?-?-?-?-?-?-?-?-?-?-?-?- 01/13/24 -?-?-?-?-?-?-?-?-?-?-?-?- 11w 2d 149 lb (+16 lb) 11 150 110/70 149 lb -?-?-?-?-?-?-?-?-?-?-?-?- 02/11/24 -?-?-?-?-?-?-?-?-?-?-?-?- 15w 3d 155 lb (+22 lb) 15 150 absent 118/64 155 lb -?-?-?-?-?-?-?-?-?-?-?-?- 03/03/24 -?-?-?-?-?-?-?-?-?-?-?-?- 18w 3d 157 lb (+24 lb) 19 150 active 110/62 157 lb -?-?-?-?-?-?-?-?-?-?-?-?- 03/31/24 -?-?-?-?-?-?-?-?-?-?-?-?- 22w 3d 163 lb (+30 lb) 22 150 active 118/68 163 lb -?-?-?-?-?-?-?-?-?-?-?-?- 04/28/24 -?-?-?-?-?-?-?-?-?-?-?--?- 26w 3d 164 lb (+31 lb) 27 150 active 112/66 164 lb -?-?-?-?-?-?-?-?-?-?-?-?- 05/12/24 -?-?-?-?-?-?-?-?-?-?-?-?- 28w 3d 167 lb (+34 lb) 28 140 active 108/66 167 lb -?-?-?-?-?-?-?-?-?-?-?-?- 05/31/24 -?-?-?-?-?-?-?-?-?-?-?-?- 31w 1d 168 lb (+35 lb) 30 140 active 106/66 168 lb -?-?-?-?-?-?-?-?-?-?-?-?- 06/14/24 -?-?-?-?-?-?-?-?-?-?-?-?- 33w 1d 173 lb (+40 lb) 32 vtx 130 active 104/60 173 lb -?-?-?-?-?-?-?-?-?-?-?-?- 06/28/24 -?-?-?-?-?-?-?-?-?-?-?-?- 35w 1d 174 lb (+41 lb) 33 vtx 140 active 106/60 174 lb -?-?-?-?-?-?-?-?--?-?-?-?- 07/05/24 -?-?-?-?-?-?-?-?-?-?-?-?- 36w 1d 173 lb (+40 lb) 32 vtx 140 active 100/60 173 lb -?-?-?-?-?-?-?-?-?-?-?-?- 07/12/24 -?-?-?-?-?-?-?-?-?-?-?-?- 37w 1d 173 lb (+40 lb) 32 vtx 140 active 112/60 173 lb -?-?-?-?-?-?-?-?-?-?-?-?- 07/18/24 -?-?-?-?-?-?-?-?-?-?-?-?- 38w 0d 176 lb (+43 lb) 34 vtx 140 active 108/60 176 lb -?-?-?-?-?-?-?-?-?-?-?-?- 07/25/24 -?-?-?-?-?-?-?-?-?-?-?-?- 39w 0d 177 lb (+44 lb) 36 vtx 140 active 100/60 177 lb -?-?-?-?-?-?-?-?-?-?-?-?- Notes Visit Date: 07/25/24 Last Updated by: Abad Sanchez MD Doing well with no complaints, no contractions, no leakage of fluid or bleeding. Good movement. On vitamin 1 tablet p.o. q.d.. A/P: 39 weeks of gestation positive GBS Labor warnings given to patient, she is to call or go to [facility] evaluation triage unit in case of contractions, leakage of fluid or decreased movement. vitamin 1 tablet p.o. q.d.. Instructions given the patient to schedule a 1 week follow-up appointment. All questions answered, the patient verbalized understanding Visit Date: 07/18/24 Last Updated by: Chantal Lane CNM Note author: Chantal Lane CNM. 38wk. MARITZA. Taking PNV, Doing well with no concerns. Good appetite, stays well hydrated. Denies any LOF, VB, abd. pain or urinary symptoms. She reports Marinette Smith contractions and pressure, U/C's resolve with fluids. [place] [facility] [place] Reviewed: Signs and symptoms of labor-LOF/Ctx's/VB, when to seek emergent care. discomforts, self help measures. FKC and when to call the office for further eval. Encouraged a healthy well balanced diet, regular walking/exercise in . Hydrate well, 10-12 glasses of water daily. RTO 1wks. Visit Date: 07/12/24 Last Updated by: Chantal Lane CNM Note author: Chantal Lane CNM. 37.1wk. MARITZA. Taking PNV and iron, Doing well with no concerns. Good appetite, stays well hydrated. Denies any LOF, VB, abd. pain or urinary symptoms. Reports her grandmother's visiting now and feeding her well. Prepped at home for baby. Reviewed: PTL s/s-LOF/Ctx's/VB, when to seek emergent care. discomforts, self help measures. FKC and when to call the office for further eval. Encouraged a healthy well balanced diet, regular walking/exercise in . Hydrate well, 10-12 glasses of water daily. GBS treatment in labor. Plans Nexplanon pp, prefers to have at the hospital. RTO 1wks. Visit Date: 07/05/24 Last Updated by: Chantal Lane CNM Note author: Chantal Lane CNM. 36.1wk. MARITZA. Taking PNV and FE. Doing well with no concerns. Good appetite, stays well hydrated. Denies any LOF, VB, abd. pain or urinary symptoms. Has her baby this weekend. Reviewed: PTL s/s-LOF/Ctx's/VB, when to seek emergent care. discomforts, self help measures. FKC and when to call the office for further eval. Encouraged a healthy well balanced diet, regular walking/exercise in . Hydrate well, 10-12 glasses of water daily. GBS, GC/CT done. SFD-US growth check ordered. RTO 1wks. Visit Date: 06/28/24 Last Updated by: Chantal Lane CNM Note author: Chantal Lane CNM. 35.1wk. MARITZA. Taking PNV, Mom at visit. She reports feeling her heart rate was faster and felt like she could not catch her breath for approx. 3min. on Wednesday, which was a hot day 90 s w/high humidity reports she hydrated, did not feel stressed and was sitting down at the time. Denies any light-headedness or dizziness. Admits to caffeine use but occasionally when she feels like it. Has occasional BHUC's, some discharge no odor or itching. Concerned that she has more harder time getting up and walking. She is interested in the Nexplanon device . Reviewed: PTL s/s-LOF/Ctx's/VB, rapid heartbeat, chest pain, shortness of breath, lightheadedness or dizziness, when to seek emergent care. discomforts, self help measures with higher summer temperatures, avoidance of overheating/dehydrating. FKC and when to call the office for further eval. Common discomforts in the 3rd trimester last month. Hydrate well, 10-12 glasses of water daily. Document signed for Nexplanon prior authorization. follow up appointment scheduled reviewed. GBS next visit. RTO 1wks. Visit Date: 06/14/24 Last Updated by: Chantal Lane CNM Note author: Chantal Lane CNM. 33.1wk. MARITZA. Taking PNV, Doing well with no concerns. Good appetite, stays well hydrated. Denies any LOF, VB, abd. pain or urinary symptoms. She reports mid to low back pain, pressure while walking, hip discomfort. Reviewed: PTL s/s-LOF/Ctx's/VB, when to seek emergent care. discomforts, self help measures including pelvic tilts, stretches, heating pad, PT referral if desires. FM and when to call the office for further eval. Encouraged a healthy well balanced diet, regular walking/exercise in . Hydrate well, 10-12 glasses of water daily. Tdap today. BC: Mirena or Nepmichelle, booklets given for review. RTO 2wks. Visit Date: 05/31/24 Last Updated by: Chantal Lane CNM Note author: Chantal Lane CNM. 31.1wk. MARITZA. Taking PNV, Doing well with no concerns. Good appetite, stays well hydrated. Denies any LOF, VB, abd. pain or urinary symptoms. US booked on 06/05/23. Phong present at visit. She reports watching online video's to prep for baby. Reviewed: PTL s/s-LOF/Ctx's/VB, when to seek emergent care. discomforts, self help measures. FM and when to call the office for further eval. Encouraged a healthy well balanced diet, regular walking/exercise in . Hydrate well, 10-12 glasses of water daily. Plan Tdap at next visit. RTO 2wks. Visit Date: 05/12/24 Last Updated by: Chantal Lane CNM Note author: Chantal Lane CNM. 28.3wk. MARITZA. Taking PNV, Doing well with no concerns. Good appetite, stays well hydrated. Denies any LOF, VB, abd. pain or urinary symptoms. Plans 28 week labs today. EPDS=0. She reports lower extremity swelling with the heat, admits to hydrating well and eating at [employer], does not like green vegetables, tends to be picky eater. Questions about maternity leave. Mom and brother present at visit today. Reviewed: PTL s/s-LOF/Ctx's/VB, when to seek emergent care. discomforts, self help measures. FM and when to call the office for further eval. Encouraged a healthy well balanced diet, regular walking/exercise in . Hydrate well, 10-12 glasses of water daily. Plan ultrasound follow up in [facility] mid May. Childbirth classes, access to library and book reading including resources such as [employer]. Avoids excessive sodium, take out foods, and when to report for a significant edema back to the office. RTO 2wks. Visit Date: 04/28/24 Last Updated by: Chantal Lane, CNM 26.3wk. MARITZA. Taking PNV, Doing well with no concerns. Good appetite, stays well hydrated. Denies any LOF, VB, abd. pain or urinary symptoms. Present with mom today. Occasional cramping. Reports takes in at least 5- 8 oz glasses of fluid a day. Reviewed: PTL s/s-LOF/Ctx's/VB, when to seek emergent care. discomforts, self help measures. FM and when to call the office for further eval. Encouraged a healthy well balanced diet, regular walking/exercise in . Hydrate well, 10-12 glasses of water daily. 28 wks labs n/v. US follow up for low lying placenta ordered for 32wks. RTO 2wks. Visit Date: 03/31/24 Last Updated by: Chantal Lane CNM Note author: Chantal Lane CNM. 22.3wk. MARITZA. Taking PNV, Doing well with no concerns. Good appetite, stays well hydrated. Denies any LOF, VB, abd. pain or urinary symptoms. Reviewed FAS-normal anatomy, low-lying placenta. Mom present at visit. Reviewed: PTL s/s-LOF/Ctx's/VB, pelvic precautions when to seek emergent care. discomforts, self help measures. Repeat ultrasound 32 weeks to check placental positioning. FM and when to call the office for further eval. Encouraged a healthy well balanced diet, regular walking/exercise in . Hydrate well, 8-10 glasses of water daily. RTO for wks. Visit Date: 03/03/24 Last Updated by: Chantal Lane CNM Note author: Chantal Lane CNM. 18.3wk. MARITZA. Taking PNV, Doing well with concerns: History of migraines prior to she reports having some increase in headaches not migraine type. She also reports she had 2 days of feeling lightheaded, no dizziness or near-syncope episode, denies any shortness of breath or heart palpitations. Currently she does not have a primary care. Good appetite, stays well hydrated. Denies any LOF, VB, abd. pain or urinary symptoms. Reviewed: PTL s/s-LOF/Ctx's/VB, headaches when to seek emergent care. discomforts, self help measures including for headache management. If repeat episodes of lightheadedness reoccur despite hydrating well and eating often she should call in to the office to be seen sooner, informed that warmer weather can cause her to feel lightheaded to prepare with layered clothing and avoiding overheating. Encouraged a healthy well balanced diet, regular walking/exercise in . Hydrate well, 8-10 glasses of water daily. RTO 4wks. Visit Date: 02/11/24 Last Updated by: Lata Abernathy CNM Patient is here with her mother for visit at the [facility] office. 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 I reviewed her labs with her which were all within normal limits. She she has a maternal grand parental edge history of diabetes but glucose screening was not ordered she is not overweight and the diabetes is slightly remote. Will await 28 week testing. I explained the option of screening for open neural tube defects via the AFP she discuss it with her mother and decided to decline. I have ordered her anatomy screen to be done at [facility] in about 1 month and sent a message to nursing to facilitate scheduling. MARITZA 4 weeks in office of choice. Visit Date: 01/13/24 Last Updated by: Chantal Lane CNM Note author: Chantal Lane CNM. 11wk. MARITZA. Presents with her mom today. Taking PNV, Doing well with no concerns. Good appetite, stays well hydrated. Denies any LOF, VB, abd. pain or urinary symptoms. Patient was unaware her labs were completed, she is agreeable to have them completed today. EPDS=3. OBPE today, pap, cultures. Reviewed: VB, when to seek emergent care. Encouraged a healthy well balanced diet, regular walking/exercise in . Hydrate well, 8-10 glasses of water daily. And labs today including panorama. RTO 4wks. Visit Date: 01/05/24 Last Updated by: Olga Lockett Kaela is here for project planner. 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 She had US 12/14/23 at 7w0d and DAVID of 08/01/24 and GA today of 10w1d. Pt is feeling well and taking PNVs. She was given the folder and is scheduled for OB PE 01/13/24. Kaela has no medical problems and no family history of concern. FOB is Phong and both parents are involved and she has good support from her partner and family. We discussed danger signs, 24/ MD coverage and how to reach MD after hours. She is aware [place] [facility] [place] She and her partner are excited about this and have been trying to conceive for awhile. We reviewed first trimester education and all of her questions were answered to the best of my ability. No further questions at this time. labs and NT US have been ordered. Will call pt with NT [place] date and [place] [facility] [place] Coding Level of Care Code Melvi
[2024-07-25 10:43] VITALS: BP 100/60; BMI 30.4
== END 2024-07-25 11:01 | disposition home or self-care (01) ==
LOC: HO.HWS 10:35
PROVIDERS: Visit Provider Obstetrics & Gynecology
DX: Z34.01 Encounter for supervision of normal first pregnancy, first trimester (principal)
CPT/HCPCS: 25942; 59426

== ENCOUNTER → 2024-07-25 10:35 | Outpatient (BNVA) | payer OTHER, SELFPAY | PROVIDERS: Visit Provider Obstetrics & Gynecology | DX: Z34.03 Encounter for supervision of normal first pregnancy, third trimester (principal) | CPT/HCPCS: 81003; 99212 ==

== ENCOUNTER 2024-08-01 09:20 | Outpatient (AMB) | payer OTHER, SELFPAY ==
--- NOTE | 2024-08-01 09:32 | MHC.OFFVIS ---
Intake Visit Reasons: MARITZA Allergies minocycline [MINOCYCLINE] Allergy (Unknown, Verified 07/25/24 10:44) RASH [facility] Medical History (Updated 07/05/24 @ 13:[address] CNM) Small for dates affecting management of mother Low lying placenta nos or without hemorrhage, second trimester Encounter for supervision of normal first Surgical History History of placement of ear tubes Hx of adenoidectomy Family History Mother No problems noted. Father No problems noted. Maternal Grandmother No problems noted. 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
[2024-08-01 09:33] VITALS: BP 112/68; BMI 30.5
--- NOTE | 2024-08-01 09:33 | A.OFFVISPN_ITS ---
Intake Vital Signs 08/01/24 09:33 Height 5 ft 4 in Weight 177 lb 8 oz BMI 30.5 BP 112/68 Blood Pressure Location Rt brachial Position Sitting Intake Visit Reasons: MARITZA Allergies minocycline [MINOCYCLINE] Allergy (Unknown, Verified 08/01/24 09:37) [facility] Medical History Small for dates affecting management of mother Low lying placenta nos or without hemorrhage, second trimester Encounter for supervision of normal first Surgical History History of placement of ear tubes Hx of adenoidectomy Family History Mother No problems noted. Father No problems noted. Maternal Grandmother No problems noted. 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 old G1 P 0 EDC:08/01/24 by 1st tri u/s Blood type: A pos Problem List: 1. Migraines prior to - 2. Low lying placenta, no longer low-lying 3. GBS positive treat in labor and delivery Testing: Panorama: 01/13/24 - low risk, does want not want to know the gender when results come back,-02/11/2024 patient states she found out at the gender reveal its a boy NT scan: booked 01/20/24- normal 1st tri anatomy AFP:declines FAS: Nl-low lying placenta, repeat US 32wks- June 02- no longer low lying. Glucose: early-- not ordered 28 wk glucose: 93 CBC 1st Tri: 12.2/36.6/197 28 wk. hgb. 11 GBS: done 07/04-positive treat in labor and delivery Vaccinations: Flu: no Covid: x2 Tdap: given 06/14/24 Education/Services WIC: enrolled CBE: advised/information provided Breast feeding classes: informed Social Supports/stressors: declines Living situation: alone, apt. 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 Concerns: Labor support: Plan: unsure, but leaning towards an epidural-07/04 Infant Feeding Plans: breastfeed control: planning Nexplanon OB Visit Log Initial Weight: 133 lb Date -?-?-?-?-?-?-?-?-?-?-?-?- EGA Weight Gest Week Fundal Ht Present FHR move Efface % Edema BP PrePreg We Weight GTT -?-?-?-?-?-?-?-?-?-?-?-?- Glucose LV Protein Blood Type 01/05/24 -?-?-?-?-?-?-?-?-?-?-?-?- 10w 1d 143 lb (+10 lb) 143 l b -?-?-?-?-?-?-?-?-?-?-?-?- 01/13/24 -?-?-?-?-?-?-?-?-?-?-?-?- 11w 2d 149 lb (+16 lb) 11 150 110/70 149 lb -?-?-?-?-?-?-?-?-?-?-?-?- 02/11/24 -?-?-?-?-?-?-?-?-?-?-?-?- 15w 3d 155 lb (+22 lb) 15 150 absent 118/64 155 lb -?-?-?-?-?-?-?-?-?-?-?-?- 03/03/24 -?-?-?-?-?-?-?-?-?-?-?-?- 18w 3d 157 lb (+24 lb) 19 150 active 110/62 157 lb -?-?-?-?-?-?-?-?-?-?-?-?- 03/31/24 -?-?-?-?--?-?-?-?-?-?-?-?- 22w 3d 163 lb (+30 lb) 22 150 active 118/68 163 lb -?-?-?-?-?-?-?-?-?-?-?-?- 04/28/24 -?-?-?-?-?-?-?-?-?-?-?-?- 26w 3d 164 lb (+31 lb) 27 150 active 112/66 164 lb -?-?-?-?-?-?-?-?-?-?-?-?- 05/12/24 -?-?-?-?-?-?-?-?-?-?-?-?- 28w 3d 167 lb (+34 lb) 28 140 active 108/66 167 lb -?-?-?-?-?-?-?-?-?-?-?-?- 05/31/24 -?-?-?-?-?-?-?-?-?-?-?-?- 31w 1d 168 lb (+35 lb) 30 140 active 106/66 168 lb -?-?-?-?-?-?-?-?-?-?-?-?- 06/14/24 -?-?-?-?-?-?-?-?-?-?-?-?- 33w 1d 173 lb (+40 lb) 32 vtx 130 active 104/60 173 lb -?-?-?-?-?--?-?-?-?-?-?-?- 06/28/24 -?-?-?-?-?-?-?-?-?-?-?-?- 35w 1d 174 lb (+41 lb) 33 vtx 140 active 106/60 174 lb -?-?-?-?-?-?-?-?-?-?-?-?- 07/05/24 -?-?-?-?-?-?-?-?-?-?-?-?- 36w 1d 173 lb (+40 lb) 32 vtx 140 active 100/60 173 lb -?-?-?-?-?-?-?-?-?-?-?-?- 07/12/24 -?-?-?-?-?-?-?-?-?-?-?-?- 37w 1d 173 lb (+40 lb) 32 vtx 140 active 112/60 173 lb -?-?-?-?-?-?-?-?-?-?-?-?- 07/18/24 -?-?-?-?-?-?-?-?-?-?-?-?- 38w 0d 176 lb (+43 lb) 34 vtx 140 active 108/60 176 lb -?-?-?-?-?-?-?-?-?-?-?-?- 07/25/24 -?-?-?-?-?-?-?-?-?-?-?-?- 39w 0d 177 lb (+44 lb) 36 vtx 140 active 100/60 177 lb -?-?-?-?-?-?-?-?-?-?-?-?- 08/01/24 -?-?-?-?-?-?-?-?-?-?-?-?- 40w 0d 177 lb 8 oz (+44 lb 8 oz) 34 vtx 140 active 112/68 177 lb 8 oz -?-?-?-?-?-?-?-?-?-?-?-?- Notes Visit Date: 08/01/24 Last Updated by: Chantal Lane CNM Note author: Chantal Lane CNM. 40 wk. MARITZA. Accompanied by partner today. Taking PNV, Doing well with no concerns. Good appetite, stays well hydrated. Denies any LOF, VB, contractions, abd. pain or urinary symptoms. She reports good movement. Ultrasound on 07/20 for growth- growth was 19%. SVE requested-cervix very posterior unable to reach. Reviewed: Labor s/s-LOF/Ctx's/VB, when to seek emergent care. Induction of labor next week, if still will plan for BPP next week. FK and when to call the office for further eval. Encouraged a healthy well balanced diet, regular walking/exercise in . Hydrate well, 10-12 glasses of water daily. RTO 1wks. Visit Date: 07/25/24 Last Updated by: Abad Sanchez MD Doing well with no complaints, no contractions, no leakage of fluid or bleeding. Good movement. On vitamin 1 tablet p.o. q.d.. A/P: 39 weeks of gestation positive GBS Labor warnings given to patient, she is to call or go to [facility] woman evaluation triage unit in case of contractions, leakage of fluid or decreased movement. vitamin 1 tablet p.o. q.d.. Instructions given the patient to schedule a 1 week follow-up appointment. All questions answered, the patient verbalized understanding Visit Date: 07/18/24 Last Updated by: Chantal Lane CNM Note author: Chantal Lane CNM. 38wk. MARITZA. Taking PNV, Doing well with no concerns. Good appetite, stays well hydrated. Denies any LOF, VB, abd. pain or urinary symptoms. She reports Sg Smith contractions and pressure, U/C's resolve with fluids. US follow up: 07/20/24 at [facility]. Reviewed: Signs and symptoms of labor-LOF/Ctx's/VB, when to seek emergent care. discomforts, self help measures. FK and when to call the office for further eval. Encouraged a healthy well balanced diet, regular walking/exercise in . Hydrate well, 10-12 glasses of water daily. RTO 1wks. Visit Date: 07/12/24 Last Updated by: Chantal Lane CNM Note author: Chantal Lane CNM. 37.1wk. MARITZA. Taking PNV and iron, Doing well with no concerns. Good appetite, stays well hydrated. Denies any LOF, VB, abd. pain or urinary symptoms. Reports her grandmother's visiting now and feeding her well. Prepped at home for baby. Reviewed: PTL s/s-LOF/Ctx's/VB, when to seek emergent care. discomforts, self help measures. FKC and when to call the office for further eval. Encouraged a healthy well balanced diet, regular walking/exercise in . Hydrate well, 10-12 glasses of water daily. GBS treatment in labor. Plans Nexplanon pp, prefers to have at the hospital. RTO 1wks. Visit Date: 07/05/24 Last Updated by: Chantal Lane CNM Note author: Chantal Lane CNM. 36.1wk. MARITZA. Taking PNV and FE. Doing well with no concerns. Good appetite, stays well hydrated. Denies any LOF, VB, abd. pain or urinary symptoms. Has her baby this weekend. Reviewed: PTL s/s-LOF/Ctx's/VB, when to seek emergent care. discomforts, self help measures. FKC and when to call the office for further eval. Encouraged a healthy well balanced diet, regular walking/exercise in . Hydrate well, 10-12 glasses of water daily. GBS, GC/CT done. SFD-US growth check ordered. RTO 1wks. Visit Date: 06/28/24 Last Updated by: Chantal Lane CNM Note author: Chantal Lane CNM. 35.1wk. MARITZA. Taking PNV, Mom at visit. She reports feeling her heart rate was faster and felt like she could not catch her breath for approx. 3min. on Wednesday, which was a hot day 90 s w/high humidity reports she hydrated, did not feel stressed and was sitting down at the time. Denies any light-headedness or dizziness. Admits to caffeine use but occasionally when she feels like it. Has occasional BHUC's, some discharge no odor or itching. Concerned that she has more harder time getting up and walking. She is interested in the Nexplanon device . Reviewed: PTL s/s-LOF/Ctx's/VB, rapid heartbeat, chest pain, shortness of breath, lightheadedness or dizziness, when to seek emergent care. discomforts, self help measures with higher summer temperatures, avoidance of overheating/dehydrating. FKC and when to call the office for further eval. Common discomforts in the 3rd trimester last month. Hydrate well, 10-12 glasses of water daily. Document signed for [facility] prior authorization. follow up appointment scheduled reviewed. GBS next visit. RTO 1wks. Visit Date: 06/14/24 Last Updated by: Chantal Lane CNM Note author: Chantal Lane CNM. 33.1wk. MARITZA. Taking PNV, Doing well with no concerns. Good appetite, stays well hydrated. Denies any LOF, VB, abd. pain or urinary symptoms. She reports mid to low back pain, pressure while walking, hip discomfort. Reviewed: PTL s/s-LOF/Ctx's/VB, when to seek emergent care. discomforts, self help measures including pelvic tilts, stretches, heating pad, PT referral if desires. FM and when to call the office for further eval. Encouraged a healthy well balanced diet, regular walking/exercise in . Hydrate well, 10-12 glasses of water daily. Tdap today. BC: Elisa or Tyree, booklets given for review. RTO 2wks. Visit Date: 05/31/24 Last Updated by: Chantal Lane CNM Note author: Chantal Lane CNM. 31.1wk. MARITZA. Taking PNV, Doing well with no concerns. Good appetite, stays well hydrated. Denies any LOF, VB, abd. pain or urinary symptoms. US booked on 06/05/23. Phong present at visit. She reports watching online video's to prep for baby. Reviewed: PTL s/s-LOF/Ctx's/VB, when to seek emergent care. discomforts, self help measures. FM and when to call the office for further eval. Encouraged a healthy well balanced diet, regular walking/exercise in . Hydrate well, 10-12 glasses of water daily. Plan Tdap at next visit. RTO 2wks. Visit Date: 05/12/24 Last Updated by: Chantal Lane CNM Note author: Chantal Lane CNM. 28.3wk. MARITZA. Taking PNV, Doing well with no concerns. Good appetite, stays well hydrated. Denies any LOF, VB, abd. pain or urinary symptoms. Plans 28 week labs today. EPDS=0. She reports lower extremity swelling with the heat, admits to hydrating well and eating at [employer], does not like green vegetables, tends to be picky eater. Questions about maternity leave. Mom and brother present at visit today. Reviewed: PTL s/s-LOF/Ctx's/VB, when to seek emergent care. discomforts, self help measures. FM and when to call the office for further eval. Encouraged a healthy well balanced diet, regular walking/exercise in . Hydrate well, 10-12 glasses of water daily. Plan ultrasound follow up in [facility] mid May. Childbirth classes, access to library and book reading including resources such as [employer]. Avoids excessive sodium, take out foods, and when to report for a significant edema back to the office. RTO 2wks. Visit Date: 04/28/24 Last Updated by: Chantal Lane CNM 26.3wk. MARITZA. Taking PNV, Doing well with no concerns. Good appetite, stays well hydrated. Denies any LOF, VB, abd. pain or urinary symptoms. Present with mom today. Occasional cramping. Reports takes in at least 5- 8 oz glasses of fluid a day. Reviewed: PTL s/s-LOF/Ctx's/VB, when to seek emergent care. discomforts, self help measures. FM and when to call the office for further eval. Encouraged a healthy well balanced diet, regular walking/exercise in . Hydrate well, 10-12 glasses of water daily. 28 wks labs n/v. US follow up for low lying placenta ordered for 32wks. RTO 2wks. Visit Date: 03/31/24 Last Updated by: Chantal Lane CNM Note author: Chantal Lane CNM. 22.3wk. MARITZA. Taking PNV, Doing well with no concerns. Good appetite, stays well hydrated. Denies any LOF, VB, abd. pain or urinary symptoms. Reviewed FAS-normal anatomy, low-lying placenta. Mom present at visit. Reviewed: PTL s/s-LOF/Ctx's/VB, pelvic precautions when to seek emergent care. discomforts, self help measures. Repeat ultrasound 32 weeks to check placental positioning. FM and when to call the office for further eval. Encouraged a healthy well balanced diet, regular walking/exercise in . Hydrate well, 8-10 glasses of water daily. RTO for wks. Visit Date: 03/03/24 Last Updated by: Chantal Lane CNM Note author: Cahntal Lane CNM. 18.3wk. MARITZA. Taking PNV, Doing well with concerns: History of migraines prior to she reports having some increase in headaches not migraine type. She also reports she had 2 days of feeling lightheaded, no dizziness or near-syncope episode, denies any shortness of breath or heart palpitations. Currently she does not have a primary care. Good appetite, stays well hydrated. Denies any LOF, VB, abd. pain or urinary symptoms. Reviewed: PTL s/s-LOF/Ctx's/VB, headaches when to seek emergent care. discomforts, self help measures including for headache management. If repeat episodes of lightheadedness reoccur despite hydrating well and eating often she should call in to the office to be seen sooner, informed that warmer weather can cause her to feel lightheaded to prepare with layered clothing and avoiding overheating. Encouraged a healthy well balanced diet, regular walking/exercise in . Hydrate well, 8-10 glasses of water daily. RTO 4wks. Visit Date: 02/11/24 Last Updated by: Lata Abernathy CNM Patient is here with her mother for visit at the [facility]. 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 I reviewed her labs with her which were all within normal limits. She she has a maternal grand parental edge history of diabetes but glucose screening was not ordered she is not overweight and the diabetes is slightly remote. Will await 28 week testing. I explained the option of screening for open neural tube defects via the AFP she discuss it with her mother and decided to decline. I have ordered her anatomy screen to be done at [facility] in about 1 month and sent a message to nursing to facilitate scheduling. MARITZA 4 weeks in office of choice. Visit Date: 01/13/24 Last Updated by: Chantal Lane CNM Note author: Chantal Lane CNM. 11wk. MARITZA. Presents with her mom today. Taking PNV, Doing well with no concerns. Good appetite, stays well hydrated. Denies any LOF, VB, abd. pain or urinary symptoms. Patient was unaware her labs were completed, she is agreeable to have them completed today. EPDS=3. OBPE today, pap, cultures. Reviewed: VB, when to seek emergent care. Encouraged a healthy well balanced diet, regular walking/exercise in . Hydrate well, 8-10 glasses of water daily. And labs today including panorama. RTO 4wks. 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 She had US 12/14/23 at 7w0d and DAVID of 08/01/24 and GA today of 10w1d. Pt is feeling well and taking PNVs. She was given the folder and is scheduled for OB PE 01/13/24. Kaela has no medical problems and no family history of concern. FOB is Phong and both parents are involved and she has good support from her partner and family. We discussed danger signs, / MD coverage and how to reach MD after hours. She is aware her delivery and ultrasounds will take place at [facility]. She and her partner are excited about this and have been trying to conceive for awhile. We reviewed first trimester education and all of her questions were answered to the best of my ability. No further questions at this time. labs and NT US have been ordered. Will call pt with NT US date and time to be done at [facility]. Coding Level of Care Code Ava
== END 2024-08-01 10:06 | disposition home or self-care (01) ==
LOC: HO.HWS 09:20
PROVIDERS: Visit Provider Advanced Practice Midwife
DX: Z34.90 Encounter for supervision of normal pregnancy, unspecified, unspecified trimester (principal)
CPT/HCPCS: 25942

== ENCOUNTER → 2024-08-01 09:20 | Outpatient (BNVA) | payer OTHER, SELFPAY | PROVIDERS: Visit Provider Advanced Practice Midwife | DX: O98.813 Other maternal infectious and parasitic diseases complicating pregnancy, third trimester (principal); B95.1 Streptococcus, group B, as the cause of diseases classified elsewhere; Z3A.40 40 weeks gestation of pregnancy; Z67.10 Type A blood, Rh positive | CPT/HCPCS: 99212 ==

== ENCOUNTER → 2024-09-29 14:39 | Outpatient (BNVA) | payer OTHER, SELFPAY | PROVIDERS: Visit Provider Advanced Practice Midwife ==

== ENCOUNTER 2024-10-05 10:47 | Outpatient (AMB) | payer OTHER, SELFPAY ==
--- NOTE | 2024-10-05 10:51 | MHC.OFFVIS ---
Intake Visit Reasons: 6 WEEK PP Allergies minocycline [MINOCYCLINE] Allergy (Unknown, Verified 08/01/24 09:37) [facility] Medical History Small for dates affecting management of mother Low lying placenta nos or without hemorrhage, second trimester Encounter for supervision of normal first Surgical History History of placement of ear tubes Hx of adenoidectomy Family History Mother No problems noted. Father No problems noted. Maternal Grandmother No problems noted. 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
[2024-10-05 11:01] VITALS: BP 102/60; BMI 27.5
--- NOTE | 2024-10-05 11:01 | A.OFFVISPN_ITS ---
Intake Vital Signs 10/05/24 11:01 Height 5 ft 4 in Weight 160 lb 4 oz BMI 27.5 BP 102/60 Blood Pressure Location Rt brachial Position Sitting Intake Visit Reasons: 6 WEEK PP Intake Note: delivered via C/ section Key Punch Teacher Required: No Allergies minocycline [MINOCYCLINE] Allergy (Unknown, Verified 10/05/24 11:03) RASH Medication List - Last Reconciled 10/05/24 by Bailey Ring LPN Post menopausal: No Patient : No PFSH Medical History (Updated 10/05/24 @ 11:[address] CNM) History of gestational hypertension Lactating mother Surgical History (Updated 10/05/24 @ 11:[address] CNM) History of delivery History of placement of ear tubes Hx of adenoidectomy Family History Mother No problems noted. Father No problems noted. Maternal Grandmother No problems noted. 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 Sexual orientation: Straight/Heterosexual Gender identity: Female Cognitive needs: No Hearing needs: No Vision needs: No Female Reproductive History Menstrual Age of Menarche: 13 control method: implanted Total pregnancies: 1 Full term: 1 Date of last pap smear: 01/14/24 History of abnormal pap smear: No History History 1 Elective abortions 0 Para 0 Spontaneous abortions 0 Hx # Term Pregnancies 1 Ectopic pregnancies 0 Hx # Pregnancies 0 Multiple births 0 Questionnaire History History : 1 Visit DAVID Calculator Estimated Delivery Date Method Current WG Current Estimate 08/01/24 Ultrasound #1 49w 2d Other Estimates 08/06/24 LMP (Uncertain) 48w 4d Expected Delivery Route/Plan Specific Issues/Plans 28 Yr. old G1 P 0 EDC:08/01/24 by 1st tri u/s Blood type: A pos Problem List: 1. Migraines prior to - 2. Low lying placenta, no longer low-lying 3. GBS positive treat in labor and delivery Testing: Panorama: 01/13/24 - low risk, does want not want to know the gender when results come back,-02/11/2024 patient states she found out at the gender reveal its a boy NT scan: booked 01/20/24- normal 1st tri anatomy AFP:declines FAS: Nl-low lying placenta, repeat US 32wks- June 02- no longer low lying. Glucose: early-- not ordered 28 wk glucose: 93 CBC 1st Tri: 12.2/36.6/197 28 wk. hgb. 11 GBS: done 07/04-positive treat in labor and delivery Vaccinations: Flu: no Covid: x2 Tdap: given 06/14/24 Education/Services WIC: enrolled CBE: advised/information provided Breast feeding classes: informed Social Supports/stressors: declines Living situation: alone, apt. 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-?-?- 15w 3d 155 lb (+22 lb) 15 150 absent 118/64 155 lb -?-?-?-?-?-?-?-?-?-?-?-?- 03/03/24 -?-?-?-?-?-?-?-?-?-?-?-?- 18w 3d 157 lb (+24 lb) 19 150 active 110/62 157 lb -?-?-?-?-?-?-?-?-?-?-?-?- 03/31/24 -?-?-?-?-?-?-?-?-?-?-?-?- 22w 3d 163 lb (+30 lb) 22 150 active 118/68 163 lb -?-?-?-?-?-?-?-?-?-?-?-?- 04/28/24 -?-?-?-?-?-?-?-?-?-?-?-?- 26w 3d 164 lb (+31 lb) 27 150 active 112/66 164 lb -?-?-?-?-?-?-?-?-?-?-?-?- 05/12/24 -?-?-?-?-?-?-?-?-?-?-?-?- 28w 3d 167 lb (+34 lb) 28 140 active 108/66 167 lb -?-?-?-?-?-?-?-?-?-?-?-?- 05/31/24 -?-?-?-?-?-?-?-?-?-?-?-?- 31w 1d 168 lb (+35 lb) 30 140 active 106/66 168 lb -?-?-?-?-?-?-?-?-?-?-?-?- 06/14/24 -?-?-?-?-?-?-?-?-?-?-?-?- 33w 1d 173 lb (+40 lb) 32 vtx 130 active 104/60 173 lb -?-?-?-?-?-?-?-?-?-?-?-?- 06/28/24 -?-?-?-?-?-?-?-?-?-?-?-?- 35w 1d 174 lb (+41 lb) 33 vtx 140 active 106/60 174 lb -?-?-?-?-?-?-?-?-?-?-?-?- 07/05/24 -?-?-?-?-?-?-?-?-?-?-?-?- 36w 1d 173 lb (+40 lb) 32 vtx 140 active 100/60 173 lb -?-?-?-?-?-?-?-?-?-?-?-?- 07/12/24 -?-?-?-?-?-?-?-?-?-?-?-?- 37w 1d 173 lb (+40 lb) 32 vtx 140 active 112/60 173 lb -?-?-?-?-?-?-?-?-?-?-?-?- 07/18/24 -?-?-?-?-?-?-?-?-?-?-?-?- 38w 0d 176 lb (+43 lb) 34 vtx 140 active 108/60 176 lb -?-?-?-?-?-?-?-?-?-?-?-?- 07/25/24 -?-?-?--?-?-?-?-?-?-?-?-?- 39w 0d 177 lb (+44 lb) 36 vtx 140 active 100/60 177 lb -?-?-?-?-?-?-?-?-?-?-?-?- 08/01/24 -?-?-?-?-?-?-?-?-?-?-?-?- 40w 0d 177 lb 8 oz (+44 lb 8 oz) 34 vtx 140 active 112/68 177 lb 8 oz -?-?-?-?-?-?-?-?-?-?-?-?- 10/05/24 -?-?-?-?-?-?-?-?-?-?-?-?- 49w 2d 160 lb 4 oz (+27 lb 4 oz) 102/60 160 lb 4 oz -?-?-?-?-?--?-?-?-?-?-?-?- Notes Visit Date: 10/05/24 Last Updated by: Chantal Lane CNM She is here today for her 6 week visit. Delivered via primary section on 08/09/2024, developed hypertension, nonreassuring heart rate tracing, and failure to dilate. Infant Eden is doing well, both breast and bottle feeding feeding. weight:3.31kg. Her bleeding has light in intermittent, had Nexplanon placed prior to discharge. Diet and fluid intake is good. She report having adequate sleep. EPDS=0 She denies any depression. Incision-healed well. She denies any pain. Pap smear is current in 2023. Visit Date: 08/01/24 Last Updated by: Chantal Lane CNM Note author: Chantal Lane CNM. 40 wk. MARITZA. Accompanied by partner today. Taking PNV, Doing well with no concerns. Good appetite, stays well hydrated. Denies any LOF, VB, contractions, abd. pain or urinary symptoms. She reports good movement. Ultrasound on 07/20 for growth- growth was 19%. SVE requested-cervix very posterior unable to reach. Reviewed: Labor s/s-LOF/Ctx's/VB, when to seek emergent care. Induction of labor next week, if still will plan for BPP next week. FKC and when to call the office for further eval. Encouraged a healthy well balanced diet, regular walking/exercise in . Hydrate well, 10-12 glasses of water daily. RTO 1wks. Visit Date: 07/25/24 Last Updated by: Abad Sanchez MD Doing well with no complaints, no contractions, no leakage of fluid or bleeding. Good movement. On vitamin 1 tablet p.o. q.d.. A/P: 39 weeks of gestation positive GBS Labor warnings given to patient, she is to call or go to [facility] woman evaluation triage unit in case of contractions, leakage of fluid or decreased movement. vitamin 1 tablet p.o. q.d.. Instructions given the patient to schedule a 1 week follow-up appointment. All questions answered, the patient verbalized understanding Visit Date: 07/18/24 Last Updated by: Chantal Lane CNM Note author: Chantal Lane CNM. 38wk. MARITZA. Taking PNV, Doing well with no concerns. Good appetite, stays well hydrated. Denies any LOF, VB, abd. pain or urinary symptoms. She reports [place] contractions and pressure, U/C's resolve with fluids. US follow up: 07/20/24 at [facility]. Reviewed: Signs and symptoms of labor-LOF/Ctx's/VB, when to seek emergent care. discomforts, self help measures. FKC and when to call the office for further eval. Encouraged a healthy well balanced diet, regular walking/exercise in . Hydrate well, 10-12 glasses of water daily. RTO 1wks. Visit Date: 07/12/24 Last Updated by: Chantal Lane CNM Note author: Chantal Lane CNM. 37.1wk. MARITZA. Taking PNV and iron, Doing well with no concerns. Good appetite, stays well hydrated. Denies any LOF, VB, abd. pain or urinary symptoms. Reports her grandmother's visiting now and feeding her well. Prepped at home for baby. Reviewed: PTL s/s-LOF/Ctx's/VB, when to seek emergent care. discomforts, self help measures. FKC and when to call the office for further eval. Encouraged a healthy well balanced diet, regular walking/exercise in . Hydrate well, 10-12 glasses of water daily. GBS treatment in labor. Plans Nexplanon pp, prefers to have at the hospital. RTO 1wks. Visit Date: 07/05/24 Last Updated by: Chantal Lane CNM Note author: Chantal Lane CNM. 36.1wk. MARITZA. Taking PNV and FE. Doing well with no concerns. Good appetite, stays well hydrated. Denies any LOF, VB, abd. pain or urinary symptoms. Has her baby this weekend. Reviewed: PTL s/s-LOF/Ctx's/VB, when to seek emergent care. discomforts, self help measures. FKC and when to call the office for further eval. Encouraged a healthy well balanced diet, regular walking/exercise in . Hydrate well, 10-12 glasses of water daily. GBS, GC/CT done. SFD-US growth check ordered. RTO 1wks. Visit Date: 06/28/24 Last Updated by: Chantal Lane CNM Note author: Chantal Lane CNM. 35.1wk. MARITZA. Taking PNV, Mom at visit. She reports feeling her heart rate was faster and felt like she could not catch her breath for approx. 3min. on Wednesday, which was a hot day 90 s w/high humidity reports she hydrated, did not feel stressed and was sitting down at the time. Denies any light-headedness or dizziness. Admits to caffeine use but occasionally when she feels like it. Has occasional BHUC's, some discharge no odor or itching. Concerned that she has more harder time getting up and walking. She is interested in the Nexplanon device . Reviewed: PTL s/s-LOF/Ctx's/VB, rapid heartbeat, chest pain, shortness of breath, lightheadedness or dizziness, when to seek emergent care. discomforts, self help measures with higher summer temperatures, avoidance of overheating/dehydrating. FKC and when to call the office for further eval. Common discomforts in the 3rd trimester last month. Hydrate well, 10-12 glasses of water daily. Document signed for Nexplanon prior authorization. follow up appointment scheduled reviewed. GBS next visit. RTO 1wks. Visit Date: 06/14/24 Last Updated by: Chantal Lane CNM Note author: Chantal Lane CNM. 33.1wk. MARITZA. Taking PNV, Doing well with no concerns. Good appetite, stays well hydrated. Denies any LOF, VB, abd. pain or urinary symptoms. She reports mid to low back pain, pressure while walking, hip discomfort. Reviewed: PTL s/s-LOF/Ctx's/VB, when to seek emergent care. discomforts, self help measures including pelvic tilts, stretches, heating pad, PT referral if desires. FM and when to call the office for further eval. Encouraged a healthy well balanced diet, regular walking/exercise in . Hydrate well, 10-12 glasses of water daily. Tdap today. BC: Mirena or Nepmichelle, booklets given for review. RTO 2wks. Visit Date: 05/31/24 Last Updated by: Chantal Lane CNM Note author: Chantal Lane CNM. 31.1wk. MARITZA. Taking PNV, Doing well with no concerns. Good appetite, stays well hydrated. Denies any LOF, VB, abd. pain or urinary symptoms. US booked on 06/05/23. Phong present at visit. She reports watching online video's to prep for baby. Reviewed: PTL s/s-LOF/Ctx's/VB, when to seek emergent care. discomforts, self help measures. FM and when to call the office for further eval. Encouraged a healthy well balanced diet, regular walking/exercise in . Hydrate well, 10-12 glasses of water daily. Plan Tdap at next visit. RTO 2wks. Visit Date: 05/12/24 Last Updated by: Chantal Lane CNM Note author: Chantal Lane CNM. 28.3wk. MARITZA. Taking PNV, Doing well with no concerns. Good appetite, stays well hydrated. Denies any LOF, VB, abd. pain or urinary symptoms. Plans 28 week labs today. EPDS=0. She reports lower extremity swelling with the heat, admits to hydrating well and eating at [employer], does not like green vegetables, tends to be picky eater. Questions about maternity leave. Mom and brother present at visit today. Reviewed: PTL s/s-LOF/Ctx's/VB, when to seek emergent care. discomforts, self help measures. FM and when to call the office for further eval. Encouraged a healthy well balanced diet, regular walking/exercise in . Hydrate well, 10-12 glasses of water daily. Plan ultrasound follow up in [facility] mid May. Childbirth classes, access to library and book reading including resources such as [facility]. Avoids excessive sodium, take out foods, and when to report for a significant edema back to the office. RTO 2wks. Visit Date: 04/28/24 Last Updated by: Chantal Lane, CNM 26.3wk. MARITZA. Taking PNV, Doing well with no concerns. Good appetite, stays well hydrated. Denies any LOF, VB, abd. pain or urinary symptoms. Present with mom today. Occasional cramping. Reports takes in at least 5- 8 oz glasses of fluid a day. Reviewed: PTL s/s-LOF/Ctx's/VB, when to seek emergent care. discomforts, self help measures. FM and when to call the office for further eval. Encouraged a healthy well balanced diet, regular walking/exercise in . Hydrate well, 10-12 glasses of water daily. 28 wks labs n/v. US follow up for low lying placenta ordered for 32wks. RTO 2wks. Visit Date: 03/31/24 Last Updated by: Chantal Lane CNM Note author: Chantal Lane CNM. 22.3wk. MARITZA. Taking PNV, Doing well with no concerns. Good appetite, stays well hydrated. Denies any LOF, VB, abd. pain or urinary symptoms. Reviewed FAS-normal anatomy, low-lying placenta. Mom present at visit. Reviewed: PTL s/s-LOF/Ctx's/VB, pelvic precautions when to seek emergent care. discomforts, self help measures. Repeat ultrasound 32 weeks to check placental positioning. FM and when to call the office for further eval. Encouraged a healthy well balanced diet, regular walking/exercise in p regnancy. Hydrate well, 8-10 glasses of water daily. RTO for wks. Visit Date: 03/03/24 Last Updated by: Chantal Laen CNM Note author: Chantal Lane CNM. 18.3wk. MARITZA. Taking PNV, Doing well with concerns: History of migraines prior to she reports having some increase in headaches not migraine type. She also reports she had 2 days of feeling lightheaded, no dizziness or near-syncope episode, denies any shortness of breath or heart palpitations. Currently she does not have a primary care. Good appetite, stays well hydrated. Denies any LOF, VB, abd. pain or urinary symptoms. Reviewed: PTL s/s-LOF/Ctx's/VB, headaches when to seek emergent care. discomforts, self help measures including for headache management. If repeat episodes of lightheadedness reoccur despite hydrating well and eating often she should call in to the office to be seen sooner, informed that warmer weather can cause her to feel lightheaded to prepare with layered clothing and avoiding overheating. Encouraged a healthy well balanced diet, regular walking/exercise in . Hydrate well, 8-10 glasses of water daily. RTO 4wks. Visit Date: 02/11/24 Last Updated by: Lata Abernathy CNM Patient is here with her mother for visit at the [facility]. 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 I reviewed her labs with her which were all within normal limits. She she has a maternal grand parental edge history of diabetes but glucose screening was not ordered she is not overweight and the diabetes is slightly remote. Will await 28 week testing. I explained the option of screening for open neural tube defects via the AFP she discuss it with her mother and decided to decline. I have ordered her anatomy screen to be done at [facility] in about 1 month and sent a message to nursing to facilitate scheduling. MARITZA 4 weeks in office of choice. Visit Date: 01/13/24 Last Updated by: Chantal Lane CNM Note author: Chantal Lane CNM. 11wk. MARITZA. Presents with her mom today. Taking PNV, Doing well with no concerns. Good appetite, stays well hydrated. Denies any LOF, VB, abd. pain or urinary symptoms. Patient was unaware her labs were completed, she is agreeable to have them completed today. EPDS=3. OBPE today, pap, cultures. Reviewed: VB, when to seek emergent care. Encouraged a healthy well balanced diet, regular walking/exercise in . Hydrate well, 8-10 glasses of water daily. And labs today including panorama. RTO 4wks. 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 She had US 12/14/23 at 7w0d and DAVID of 08/01/24 and GA today of 10w1d. Pt is feeling well and taking PNVs. She was given the folder and is scheduled for OB PE 01/13/24. Kaela has no medical problems and no family history of concern. FOB is Phong and both parents are involved and she has good support from her partner and family. We discussed danger signs, / MD coverage and how to reach MD after hours. She is aware her delivery and ultrasounds will take place at [facility]. She and her partner are excited about this and have been trying to conceive for awhile. We reviewed first trimester education and all of her questions were answered to the best of my ability. No further questions at this time. labs and NT US have been ordered. Will call pt with NT US date and time to be done at [facility]. Review of Systems Const All systems reviewed & are unremarkable except as noted in HPI and below Reports as per HPI Eyes Reports no additional complaints ENT Reports no additional complaints Card Reports no additional complaints Resp Reports no additional complaints GI Reports as per HPI and Reports no additional complaints Reports as per HPI Musc Reports no additional complaints Skin/Breast Reports as per HPI Neuro Reports no additional complaints Psych Reports no additional complaints Endo Reports no additional complaints José/Lymph Reports no additional complaints Aller/Immun Reports no additional complaints Exam Const Constitutional General: cooperative, healthy appearing, no acute distress, well developed and alert Orientation/consciousness: patient oriented x3 HENMT Head: normal to inspection Eyes General: appearance normal, both eyes and all related structures Neck Neck: normal visual inspection Thyroid: Thyroid normal Chest Chest palpation & inspection: normal inspection of the chest and other (no puckering, dimpling, peau de orange, retraction, discharge, masses) Breast/axilla inspection: normal inspection of the breasts Breast/axilla palpation: normal palpation of the breasts Other: Lactational changes Resp Effort & Inspection: normal respiratory effort GI Inspection (GI): normal to inspection and incision (Low transverse incision well healed) Palpation (GI): Soft to palpation General Exam: Yes bladder normal to palpation External Female Exam: normal external appearance and normal appearance of the urethra Urethra: normal appearance of the urethra Speculum exam - vagina: normal appearance of the vagina, normal discharge and vaginal bleeding Speculum Exam - Cervix: normal appearance of the cervix Bimanual exam- vagina & uterus: normal bimanual exam, normal palpation, uterine size normal, bladder normal to palpation, normal palpation and non-tender Bimanual Exam- Adnexa, other: no masses OB/external & speculum: vaginal bleeding Speculum Exam: vaginal bleeding Skin General skin exam: no rashes or lesions noted Rashes: no rashes Neuro Cognition (Neuro): normal cognition Extrem General: normal to inspection Psych Attitude: cooperative Thought process: Normal thought process present Coding Level of Care Code [place] Diagnoses Single delivery by O82 exam Z39.2 Assessment & Plan Assessment & Plan (1) Single delivery by : Code(s): O82 - Encounter for delivery without indication Category: Medical (2) exam: Code(s): Z39.2 - Encounter for routine follow-up Plan Discussed: care including diet rest, exercise, continue with vitamins while breast-feeding. Encouraged to continue as long as possible. Monitor breakthrough bleeding with Nexplanon, observe pattern if becomes heavier prolonged to report to the office for a follow up, it is normal to have breakthrough bleeding in the beginning in intermittently with the Nexplanon device throughout the 3 years. experience. Return to the office p.r.n., schedule yearly annual in 1 year. All of her questions and concerns were addressed to the best of my ability and shared decision making. She is agreeable to the plan of care. This note is constructed using voice recognition software. While every effort has been made to ensure accuracy, ent consultant errors may have been included. Medications: New PNV,calcium [id number] acid 27 mg iron- 1 mg ( Vitamins Plus Low Iron) 1 tab PO DAILY 90 tabs 4RF
== END 2024-10-05 11:38 | disposition home or self-care (01) ==
LOC: HO.HWS 10:47
PROVIDERS: Visit Provider Advanced Practice Midwife
DX: Z39.2 Encounter for routine postpartum follow-up (principal)
CPT/HCPCS: 59430; S3005

== ENCOUNTER → 2024-10-05 10:47 | Outpatient (BNVA) | payer OTHER, SELFPAY | PROVIDERS: Visit Provider Advanced Practice Midwife ==

== ENCOUNTER 2025-11-02 14:49 | Outpatient (REF) | payer OTHER, SELFPAY ==
[2025-11-02 22:36] LABS: Bacterial Vaginosis PCR POSITIVE (Negative); Candida Group PCR DETECTED (Not Detect); Candida glab krusei PCR NOT DETECTED (Not Detect); Trichomonas vaginalis PCR NOT DETECTED (Not Detect)
[2025-11-02 23:08] LABS: CT PCR NOT DETECTED (Not Detect.); NG PCR NOT DETECTED (Not Detect.)
== END 2025-11-02 14:50 | disposition home or self-care (01) ==
LOC: HO.LNP 14:49
PROVIDERS: Visit Provider Advanced Practice Midwife
DX: Z01.419 Encounter for gynecological examination (general) (routine) without abnormal findings (principal); Z12.39 Encounter for other screening for malignant neoplasm of breast; Z20.2 Contact with and (suspected) exposure to infections with a predominantly sexual mode of transmission; Z97.5 Presence of (intrauterine) contraceptive device
CPT/HCPCS: 81515; 87491; 87591